=== PATIENT | female | born 1965 | race Caucasian/White ===

== ENCOUNTER 2017-03-10 09:27 | Inpatient (IN) ==
[2017-03-10] MEDS: SALINE FLUSH 10ml SYRINGE IVF PRN ×2 (09:57→11:41)
[2017-03-10] MEDS ORDERED: ALBUTEROL/IPRATROPIUM 2.5mg-0.5mg/3ml NEB AEROSOL ONE (10:51)
--- NOTE | 2017-03-10 11:13 | Emergency Department Report ---
General Adult HPI - General Chief complaint: Shortness of Breath/Dyspnea Stated complaint: soa Time Seen by Provider: 03/10/17 09:40 Source: patient, EMS Mode of arrival: EMS Limitations: no limitations - History of Present Illness HPI narrative: 51-year-old female presents to the emergency department with the chief complaint of cough and shortness of breath. Patient has a history of COPD and uses 5-6 L per nasal cannula on a chronic basis. She is still actively smoking 1 pack per day. Patient denies any pain or discomfort. Patient was noted to have a temperature of 101.5 F taken this morning by nursing staff. She was noted to be hypoxic at approximately 80% on her chronic home nasal cannula settings. Patient notes that she feels like her COPD is exacerbating. She does note feeling slightly improved after a nebulizer treatment was given in route to the hospital. She was given acetaminophen when the temperature was noted by nursing staff. No other complaints or associated symptoms. She has a cough that is productive of a yellow phlegm. She was at her care facility when her symptoms began. Symptoms have been persistent in nature since onset. - Related Data Home Medications Medication Instructions Recorded Confirmed Acetaminophen 650 mg PO Q6HR PRN 03/10/17 03/10/17 Albuterol Neb (0.083%) [Proventil 1 vial INH PRN PRN 03/10/17 03/10/17 Neb (0.083%)] Albuterol Sulfate [Proair Hfa] 2 puff INH TID PRN 03/10/17 03/10/17 Divalproex [Depakote] 2 tab PO AM 03/10/17 03/10/17 Divalproex [Depakote] 3 tab PO HS 03/10/17 03/10/17 Fluticasone Nasal [place] [Flonase] 2 spray JHON DAILY 03/10/17 03/10/17 Furosemide [Lasix] 40 mg PO DAILY 03/10/17 03/10/17 Gabapentin 900 mg PO HS 03/10/17 03/10/17 Gabapentin [Neurontin] 600 mg PO BID 03/10/17 03/10/17 Guaifenesin/Dextromethorphan 10 ml PO Q4HR PRN 03/10/17 03/10/17 [Robafen Dm Cgh-Chest Eric Syrp] Mag Hydrox/Aluminum Hyd/Simeth 15 ml PO Q6HR PRN 03/10/17 03/10/17 [Maalox Advanced Suspension] Meloxicam 15 mg PO DAILY 03/10/17 03/10/17 Milk of Magnesia [Mom] 30 ml PO DAILY PRN 03/10/17 03/10/17 Multivitamin [One Daily 1 each PO DAILY 03/10/17 03/10/17 Multivitamin] OLANZapine [Olanzapine] 10 mg PO HS 03/10/17 03/10/17 Omeprazole 20 mg PO ACB 03/10/17 03/10/17 Simvastatin 20 mg PO HS 03/10/17 03/10/17 Tramadol [Ultram] 50 mg PO TID PRN 03/10/17 03/10/17 Allergies Allergy/AdvReac Type Severity Reaction Status Date / Time No Known Allergies Allergy Verified 03/10/17 09:45 Review of Systems Constitutional: Reports: fever. Denies: chills Eyes: Denies: eye pain, vision change ENT: Denies: ear pain, throat pain Cardiovascular: Denies: chest pain, palpitations Respiratory: Reports: cough, dyspnea, wheezes. Denies: hemoptysis Gastrointestinal: Denies: abdominal pain, nausea, vomiting, diarrhea Genitourinary: Denies: urgency, dysuria Musculoskeletal: Denies: back pain, arthralgia Integumentary: Denies: erythema, rash Neurological: Denies: headache, numbness Psychiatric: Denies: anxiety, depression Endocrine: Denies: fatigue, heat or cold intolerance Hematological/Lymphatic: Denies: easy bleeding, easy bruising Allergic/Immunologic: Denies: facial swelling, urticaria PFSH Patient Stated Medical History Congestive Heart Failure labeled "edema" Other Cardiology Yes: Hyperlipidemia Bronchitis Yes Chronic Obstructive Pulmonary Yes Disease (COPD) Gastroesophageal Reflux Yes Disease Other Musculoskeletal Yes: bilateral Carpal Tunnel Other Infectious Yes: Hep C Bipolar Disorder Yes Other Behavioral Health Yes: homa with psycosis Family History: Reviewed and Noncontributory. - Social History Smoking status: Current every day smoker Substance use type: does not use Alcohol intake frequency: does not drink Physical Exam - Limitations Limitations: no limitations - General General appearance: alert, in no apparent distress - Normal Exams: Head:: Normocephalic without trauma Eyes:: Pupils are PERRLA w/ EOMI, No scleral icterus, irritation, or foreign bodies noted ENMT:: No facial trauma, nasal exudates, pharyngeal erythema, or exudates are noted Dental: No fractured, loose, or missing teeth noted Neck:: Full range of motion, without adenopathy, JVD, bruits or thyromegaly Chest/Respirations:: with good airflow, and symmetry bilaterally (wheezes and rhonchi bilaterally. ) Cardiovascular:: Regular rate and rhythm, without murmur or gallop, Pulses 2+ all extremities, capillary refill, <2 seconds all extremities Abdomen:: Bowel sounds positive, soft, non-tender, non-distended, no hepatosplenomegaly, masses or bruits noted Lymphatic:: No lymphadenopathy, or lymphedema noted Musculoskeletal:: No tenderness, or deformity noted, good range of motion, all extremities Integumentary:: No rashes, hives, or bruising noted, hair and nails, without abnormality Neurological:: Patient is alert, and oriented, cranial nerves, motor/sensory/ cerebellar, exams w/o gross deficits, to observation Psychiatric:: Patient exhibits, appropriate attention, emotion and affect Course Vital Signs Temperature 98.2 F 03/10/17 09:29 Pulse Rate 97 03/10/17 09:29 Respiratory Rate 24 03/10/17 09:29 Blood Pressure 130/59 03/10/17 09:29 Pulse Oximetry 93 03/10/17 09:29 Temperature 97.0 F 03/10/17 12:31 Pulse Rate 85 03/10/17 12:31 Respiratory Rate 18 03/10/17 12:31 Blood Pressure 145/71 H 03/10/17 12:31 Pulse Oximetry 92 03/10/17 12:31 Medical Decision Making - [facility] Narrative Medical decision making narrative: Labs / imaging were discussed in detail with the patient and family and questions are answered. Patient is given 500 mL normal saline intravenously times one. Patient is given DuoNeb treatment in the emergency department with improvement of symptoms. She is given segmental 125 mg IV times one. Patient is started on cefepime intravenously 1 g due to the potential bilateral lower lobe infiltrates. Patient is in agreement with the current plan of management. She is admitted to the service of the hospitalist Dr. Mathis in improved condition. Patient is in agreement with the current plan of management. No further orders. Sepsis was considered at 1130 am after CXR was reviewed and Cefepime was ordered. Patient did not have a lactic acid greater than 4 and was never hypotensive in the emergency department. - Differential Diagnosis COPD, PNA, CHF, Viral Syndrome - Lab Data Result diagrams: 03/10/17 09:59 03/10/17 09:59 Lab Results 03/10/17 03/10/17 03/10/17 Range/Units 09:59 09:59 09:59 WBC 5.7 (4.5-11.0) T/MM3 RBC 4.86 (4.00-5.20) M/MM3 Hgb 15.8 (12-16) GM/DL Hct 49.0 H (36-46) % MCV 100.8 H (80-100) UM3 MCH 32.5 (26-34) UUG MCHC 32.2 (31-37) GM/DL RDW Std Deviation 52.8 H (36.9-50.2) FL Plt Count 137 (130-400) T/MM3 MPV 9.8 (9.4-12.4) UM3 Immature Gran % (Auto) 0.2 (0.0-0.5) % Neut % (Auto) 63.3 (33-66) % Lymph % (Auto) 26.2 (23-45) % [place] % (Auto) 8.6 (0-9.0) % Eos % (Auto) 1.4 (0-4) % Baso % (Auto) 0.3 (0-2) % Neut # (Auto) 3.6 (1.8-7.7) T/MM3 Lymph # (Auto) 1.5 (1-4.8) T/MM3 [place] # (Auto) 0.5 (0-0.8) T/MM3 Eos # (Auto) 0.1 (0-0.5) T/MM3 Baso # (Auto) 0.0 (0-0.2) T/MM3 Abs Immat Gran (auto) 0.01 (0.00-0.03) T/MM3 Turbidity < 20 (0-20) Sodium 136 (134-144) MEQ/L Potassium 4.0 (3.6-5) MEQ/L Chloride 94 L (98-107) MEQ/L Carbon Dioxide 37 H (22-30) MEQ/L Anion Gap 5 (5-15) MEQ/L BUN 19.0 H (7-17) MG/DL Creatinine 0.7 (0.7-1.2) MG/DL GFR Calculation 88 BUN/Creatinine Ratio 27 H (6-26) RATIO Glucose 137 H (65-110) MG/DL Calculated Osmolality 266 (261-280) MOSM/KG Calcium 8.7 (8.4-10.2) MG/DL Total Bilirubin 0.30 (0.20-1.30) MG/DL Icterus Index < 2 (0-7) AST 19 (14-36) U/L ALT 32 (9-52) U/L Alkaline Phosphatase 57 (38-126) U/L Troponin I < 0.012 (0-0.12) ng/ml B-Natriuretic Peptide (0-175) pg/mL Total Protein 7.0 (6.3-8.2) G/DL Albumin 3.4 L (3.5-5.0) G/DL Globulin 3.6 (2.4-3.6) G/DL Albumin/Globulin Ratio 0.9 L (1.1-2.2) RATIO Plasma Lactate 2.2 (0.6-2.2) MMOL/L Procalcitonin < 0.05 NG/ML Specimen Hemolysis 20 (0-25) 03/10/17 Range/Units 09:59 WBC (4.5-11.0) T/MM3 RBC (4.00-5.20) M/MM3 Hgb (12-16) GM/DL Hct (36-46) % MCV (80-100) UM3 MCH (26-34) UUG MCHC (31-37) GM/DL RDW Std Deviation (36.9-50.2) FL Plt Count (130-400) T/MM3 MPV (9.4-12.4) UM3 Immature Gran % (Auto) (0.0-0.5) % Neut % (Auto) (33-66) % Lymph % (Auto) (23-45) % Charl[place] % (Auto) (0-9.0) % Eos % (Auto) (0-4) % Baso % (Auto) (0-2) % Neut # (Auto) (1.8-7.7) T/MM3 Lymph # (Auto) (1-4.8) T/MM3 [place] # (Auto) (0-0.8) T/MM3 Eos # (Auto) (0-0.5) T/MM3 Baso # (Auto) (0-0.2) T/MM3 Abs Immat Gran (auto) (0.00-0.03) T/MM3 Turbidity (0-20) Sodium (134-144) MEQ/L Potassium (3.6-5) MEQ/L Chloride (98-107) MEQ/L Carbon Dioxide (22-30) MEQ/L Anion Gap (5-15) MEQ/L BUN (7-17) MG/DL Creatinine (0.7-1.2) MG/DL GFR Calculation BUN/Creatinine Ratio (6-26) RATIO Glucose (65-110) MG/DL Calculated Osmolality (261-280) MOSM/KG Calcium (8.4-10.2) MG/DL Total Bilirubin (0.20-1.30) MG/DL Icterus Index (0-7) AST (14-36) U/L ALT (9-52) U/L Alkaline Phosphatase (38-126) U/L Troponin I (0-0.12) ng/ml B-Natriuretic Peptide 415 H (0-175) pg/mL Total Protein (6.3-8.2) G/DL Albumin (3.5-5.0) G/DL Globulin (2.4-3.6) G/DL Albumin/Globulin Ratio (1.1-2.2) RATIO Plasma Lactate (0.6-2.2) MMOL/L Procalcitonin NG/ML Specimen Hemolysis (0-25) - Radiology Data CXR - potential bilateral infiltrates. - EKG Data EKG #1 EKG results narrative: Sinus rhythm. 96 bpm. No STEMI. Disposition Clinical Impression: Pneumonia, Acute exacerbation of chronic obstructive airways disease Disposition: 02 To [facility] Condition: Stable Time of Disposition: 11:30 (Admit. Dr. Mathis. ) - Seen By: physician
[2017-03-10] MEDS ORDERED: CEFEPIME 1 GM in NS 100 ML IV ONE (11:31)
[2017-03-10] MEDS ORDERED: METHYLPREDNISOLONE SOD SUCC 125mg/2ml INJECTION IVP ONE (11:31)
[2017-03-10] MEDS ORDERED: NS 1,000 ML IV ONE (12:11)
[2017-03-10 12:39] VITALS: BMI 42.4
[2017-03-10] MEDS ORDERED: ALBUTEROL 2.5mg/3ml (0.083%) NEB AEROSOL PRN (15:00)
[2017-03-10] MEDS ORDERED: AZITHROMYCIN IV 500 MG in NS 250ml 250 ML IV SCH (15:00)
[2017-03-10] MEDS ORDERED: FUROSEMIDE 40 MG/4 ML INJECTION IVP SCH (15:00)
[2017-03-10] MEDS ORDERED: CEFTRIAXONE 1 G in NS 100 ML IV SCH (15:00)
[2017-03-10] MEDS ORDERED: GUAIFENESIN/DM 5ml ORAL LIQUID PO PRN (15:00)
[2017-03-10] MEDS ORDERED: MAG-AL + SIM ORAL LIQUID 30ml PO PRN (15:00)
--- NOTE | 2017-03-10 15:14 | History & Physical Report ---
<Dana Schaeffer - Last Filed: 03/10/17 15:11> History of Present Illness Date: 03/10/17 Chief complaint: SOA, fever HPI: Julia is a very pleasant 51yo female who resides in a nursing facility. She was found to have a fever of 101.5, was SOA, and was hypoxic in the 80's on her normal home O2. She continues to smoke at least 1ppd. Due to her increasing SOA and hypoxia, she was sent to the ER for further eval and treatment. She is seen following transfer from the emergency room. She is alert, reports breathing somewhat better. Continues to have some moderate SOA. Reports a productive cough. No chest pain. She is a very limited historian, and has known mental health disorder chronically. There were no [place] records available for me to review at the time of this H&P. Review of Systems ROS unobtainable: due to mental status Review of systems: Limited. - Constitutional Constitutional: Present: fever(s), weakness - Cardiovascular Cardiovascular: Present: edema. Absent: chest pain - Respiratory Respiratory: Present: cough, dyspnea, dyspnea on exertion, wheezing, chest congestion - Gastrointestinal Gastrointestinal: Absent: abdominal pain, nausea, vomiting - Musculoskeletal Musculoskeletal: Present: as per HPI - Psychiatric Psychiatric: Present: paranoia [facility] Medical History Acute exacerbation of chronic obstructive airways disease (Acute Medical) Possible CHF Chronic peripheral edema Bronchitis COPD GERD Hep C Bilateral Carpal Tunnel syndrome BPAD with paranoia Surgical History: Tubal Family History: Father- early CAD - Social History Smoking status: Current every day smoker Current occupational status: disabled Current residence: Group Home Medications Home Medications Medication Instructions Recorded Confirmed Type Acetaminophen 650 mg PO Q6HR PRN 03/10/17 03/10/17 History Albuterol Neb (0.083%) [Proventil 1 vial INH PRN PRN 03/10/17 03/10/17 History Neb (0.083%)] Albuterol Sulfate [Proair Hfa] 2 puff INH TID PRN 03/10/17 03/10/17 History Divalproex [Depakote] 2 tab PO AM 03/10/17 03/10/17 History Divalproex [Depakote] 3 tab PO HS 03/10/17 03/10/17 History Fluticasone Nasal [place] [Flonase] 2 spray JHON DAILY 03/10/17 03/10/17 History Furosemide [Lasix] 40 mg PO DAILY 03/10/17 03/10/17 History Gabapentin 900 mg PO HS 03/10/17 03/10/17 History Gabapentin [Neurontin] 600 mg PO BID 03/10/17 03/10/17 History Guaifenesin/Dextromethorphan 10 ml PO Q4HR PRN 03/10/17 03/10/17 History [Robafen Dm Cgh-Chest Eric Syrp] Mag Hydrox/Aluminum Hyd/Simeth 15 ml PO Q6HR PRN 03/10/17 03/10/17 History [Maalox Advanced Suspension] Meloxicam 15 mg PO DAILY 03/10/17 03/10/17 History Milk of Magnesia [Mom] 30 ml PO DAILY PRN 03/10/17 03/10/17 History Multivitamin [One Daily 1 each PO DAILY 03/10/17 03/10/17 History Multivitamin] OLANZapine [Olanzapine] 10 mg PO HS 03/10/17 03/10/17 History Omeprazole 20 mg PO ACB 03/10/17 03/10/17 History Simvastatin 20 mg PO HS 03/10/17 03/10/17 History Tramadol [Ultram] 50 mg PO TID PRN 03/10/17 03/10/17 History Allergies Allergy/AdvReac Type Severity Reaction Status Date / Time No Known Allergies Allergy Verified 03/10/17 09:45 Exam Vital Signs: Temperature 97.0 F 03/10/17 12:31 Pulse Rate 85 03/10/17 12:31 Respiratory Rate 18 03/10/17 12:31 Blood Pressure 145/71 H 03/10/17 12:31 Pulse Oximetry 92 03/10/17 12:31 Height/Weight/BMI: Height 1.63 m Weight 112.1 kg Body Mass Index 42.4 - Constitutional Present: mild distress, obese, disheveled, cooperative - Routine HEENT Exam Head: Present: normocephalic, atraumatic Eye: Present: EOMI, PERRL, periorbital swelling (Mild facial edema) ENT: Present: mucous membranes moist - Routine Neck Exam Present: supple, full ROM. Absent: tenderness - Routine Respiratory Exam Present: dyspnea, decreased breath sounds, rhonchi, wheezes, crackles ( Throughout. ) - Routine Cardiovascular Exam Present: RRR, S1, S2, no murmur - Routine Abdominal Exam Present: soft, normoactive bowel sounds, non distended, non tender - Routine Extremities Exam Present: edema (Significant pitting edema bilaterally LE), non tender - Routine Skin Exam Present: intact, dry, warm - Routine Neurological Exam Present: alert, moving all extremities - Routine Psychiatric Exam Present: cooperative, unable to assess (Withdrawn. Poor historian. ) Results - Labs CBC & Chem 7: 03/10/17 09:59 03/10/17 09:59 - ECG Data Tracing #1 I reviewed this ECG and interpreted as documented below: No STEMI. Regular rhythm - Imaging and Cardiology Chest x-ray Status: image reviewed by me, pending Additional comments: Possible bilateral basilar infiltrates. Pulmonary edema. Assessment and Plan (1) Acute exacerbation of chronic obstructive airways disease Current visit: Yes Status: Acute (2) Acute febrile illness Current visit: Yes Status: Acute Assessment and Plan: Impression: Acute on Chronic Respiratory Failure Hypoxemia Acute febrile illness COPD with exacerbation Fluid overload with suspected Heart Failure Mood Disorder with paranoia and disability. Tobacco user. Chronic pain Plan: 03/10/17 O2 per NC, Titrate to effect. Pt. was unable to clarify if she was on Bipap or CPAP at home. If so, will need to start. D/W RT. Scheduled Duoneb, Pulmicort. Schedule Solumedrol. Add Ceftriaxone/Azithro to cover possible infiltrate. Assess Resp Viral PCR. She has had Flu shot this year. Will start IV diuresis, as she seems quite fluid overloaded. Supplemental KCL while on Lasix. Assess echo on Sunday. Add tele, continuous O2. Resume home meds for Mood and Pain. Will add PRN Nicoderm patch and Ativan due to risk for anxiety given mental illness. Repeat labs in AM for stability. Monitor AM glucose via lab draws. If elevated,will need to start accu checks. Add LMWH for prophylaxis. DVT Prophylaxis: Lovenox GI Prophylaxis: other (PPI) Resuscitation Status: Full Code Hospital Course Summary Disclaimer: The visit summary below is not to be considered part of the above Progress Note. Hospital Course: 03/10/17 15:29 Impression: Acute on Chronic Respiratory Failure Hypoxemia Acute febrile illness COPD with exacerbation Fluid overload with suspected Heart Failure Mood Disorder with paranoia and disability. Tobacco user. Chronic pain Plan: 03/10/17 O2 per NC, Titrate to effect. Pt. was unable to clarify if she was on Bipap or CPAP at home. If so, will need to start. D/W RT. Scheduled Duoneb, Pulmicort. Schedule Solumedrol. Add Ceftriaxone/Azithro to cover possible infiltrate. Assess Resp Viral PCR. She has had Flu shot this year. Will start IV diuresis, as she seems quite fluid overloaded. Supplemental KCL while on Lasix. Assess echo on Sunday. Add tele, continuous O2. Resume home meds for Mood and Pain. Will add PRN Nicoderm patch and Ativan due to risk for anxiety given mental illness. Repeat labs in AM for stability. Monitor AM glucose via lab draws. If elevated,will need to start accu checks. Add LMWH for prophylaxis. <Gia Mathis - Last Filed: 03/10/17 16:41> History of Present Illness Date: 03/10/17 [facility] Medical History Acute exacerbation of chronic obstructive airways disease (Acute Medical) Acute febrile illness (Acute Medical) Exam Vital Signs: Temperature 97.0 F 03/10/17 12:31 Pulse Rate 87 03/10/17 16:00 Respiratory Rate 20 03/10/17 15:42 Blood Pressure 145/71 H 03/10/17 12:31 Pulse Oximetry 90 03/10/17 15:42 Height/Weight/BMI: Height 1.63 m Weight 112.1 kg Body Mass Index 42.4 Results - Labs CBC & Chem 7: 03/10/17 09:59 03/10/17 09:59 Assessment and Plan (1) Acute exacerbation of chronic obstructive airways disease Current visit: Yes Status: Acute (2) Acute febrile illness Current visit: Yes Status: Acute Assessment and Plan: Delfina FUNES Mr. Watkins was interviewed and examined by me. She continues to be short of air. She denies any pain anywhere. She has mild generalized edema that she reports has been there for the last 2 years since her last suicide attempt. She also reports that she has hepatitis C that has been untreated and she has been told that also contributes to her edema. She has a cough with yellow sputum production. She denies any previous cardiac history. She does take Lasix 40 mg daily and she is on the Statin. Her neck reveals no JVD. Her carotids are difficult to hear through her breath sounds. Her lungs are very course bilaterally. She has bilateral wheezes. Heart sounds are difficult to hear through for lab breath sounds but I do not hear murmur. Her heart is regular. Her abdomen is soft, nontender and nondistended. She has positive bowel sounds. She has mild generalized edema. She did tell me that she is supposed to be on oxygen 24 hours a day but oftentimes she only wears it at night. She has been up to the bathroom since being admitted and tolerating that from the respiratory status. Her labs are fairly unremarkable. Her chest x-ray does look like there is possible bilateral infiltrate. We will treat her for healthcare acquired pneumonia. We will provide aggressive respiratory therapy. We will initiate steroids. We will try to get a sputum culture. Her BNP is only mildly elevated. I have reviewed her labs, imaging and other notes. I agree with STATISTICS TEACHER assessment and plan. Hospital Course Summary Disclaimer: The visit summary below is not to be considered part of the above Progress Note.
[2017-03-10] MEDS ORDERED: NICOTINE PATCH REMOVAL TD PRN (15:24)
[2017-03-10] MEDS ORDERED: NICOTINE 21 MG PATCH TD PRN (15:24)
[2017-03-10] MEDS: ALBUTEROL/IPRATROPIUM 2.5mg-0.5mg/3ml NEB AEROSOL SCH ×2 (15:29→19:23)
[2017-03-10] MEDS: DIVALPROEX 250 MG TABLET PO SCH ×2 (16:06→21:05)
[2017-03-10] MEDS: ENOXAPARIN 40 MG/0.4 ML INJECTION SQ SCH (16:06)
[2017-03-10] MEDS ORDERED: VANCOMYCIN - PHARMACY CONSULT MC ONE (16:48)
[2017-03-10] MEDS: CEFEPIME 1 GM in NS 100 ML IV SCH ×2 (18:21→22:48)
[2017-03-10] MEDS: CIPROFLOXACIN PB 400 MG/200 ML BAG IV SCH (18:53)
[2017-03-10] MEDS ORDERED: BUDESONIDE INH.SOLN 0.5mg/2ml NEB IPPB SCH (19:00)
[2017-03-10] MEDS: BUDESONIDE INH.SOLN 0.5mg/2ml NEB AEROSOL SCH (19:23)
[2017-03-10] MEDS: METHYLPREDNISOLONE SOD SUCC 125mg/2ml INJECTION IVP SCH (21:03)
[2017-03-10] MEDS: OLANZapine 10 MG TABLET PO SCH (21:04)
[2017-03-10] MEDS: FUROSEMIDE 40 MG/4 ML INJECTION IVP SCH (21:05)
[2017-03-10] MEDS: SIMVASTATIN 20 MG TABLET PO SCH (21:05)
[2017-03-10] MEDS: GABAPENTIN 300 MG CAPSULE PO SCH (21:21)
[2017-03-10] MEDS: TRAMADOL 50 MG TABLET PO PRN (21:21)
[2017-03-11] MEDS: METHYLPREDNISOLONE SOD SUCC 125mg/2ml INJECTION IVP SCH ×3 (01:31→17:38)
[2017-03-11] MEDS: CEFEPIME 1 GM in NS 100 ML IV SCH ×4 (03:53→22:19)
[2017-03-11] MEDS: CIPROFLOXACIN PB 400 MG/200 ML BAG IV SCH ×2 (04:58→16:23)
[2017-03-11] MEDS: OMEPRAZOLE 20 MG CAPSULE PO SCH (06:14)
[2017-03-11] MEDS: ALBUTEROL/IPRATROPIUM 2.5mg-0.5mg/3ml NEB AEROSOL SCH ×4 (07:03→19:32)
[2017-03-11] MEDS: BUDESONIDE INH.SOLN 0.5mg/2ml NEB AEROSOL SCH ×2 (07:03→19:32)
--- NOTE | 2017-03-11 07:12 | Pharmacy Consult-Antibiotics ---
Pharmacy Consult-Vancomycin - Laboratory Information WBC 6.3 T/MM3 (4.5-11.0) 03/11/17 04:23 BUN 25.0 MG/DL (7-17) H 03/11/17 04:22 Creatinine 0.6 MG/DL (0.7-1.2) L 03/11/17 04:22 Procalcitonin < 0.05 NG/ML 03/10/17 09:59 MS admitted via ED from [place] facility with acute excab. COPD, Febrile illness. CXR shows bilateral LL infiltrates. Lactate = 2.2 Starting Abx = Cefepime + Cipro + Vancomycin 03/10 2000 Gave Vancomycin 2gm LD, then started Vancomycin 1500mg IV q12hr at 0600. After pharmacokinetic review adjusting regimen to VANCOMYCIN 2 GM IV q8hrs. This gives peak/trough = 41/17 mcg/ml Trough target range = 15-20 mcg/ml Will check trough with 11/6 am dose: should be at steady state levels by then. Thank you
[2017-03-11] MEDS: GABAPENTIN 600 MG TABLET PO SCH ×2 (08:31→12:20)
[2017-03-11] MEDS: DIVALPROEX 250 MG TABLET PO SCH ×2 (08:32→20:28)
[2017-03-11] MEDS: ENOXAPARIN 40 MG/0.4 ML INJECTION SQ SCH (08:33)
[2017-03-11] MEDS: FLUTICASONE NASAL SPRAY 50mcg EA NOSTRIL SCH (08:33)
[2017-03-11] MEDS: FUROSEMIDE 40 MG/4 ML INJECTION IVP SCH ×2 (08:37→20:32)
--- NOTE | 2017-03-11 09:35 | XRay Report ---
INDICATION: Cough PROCEDURE: CHEST 2-VIEWS UPRIGHT (PA & LAT) Encounter: Initial COMPARISON: None FINDINGS: Right middle and possibly bilateral lower lobe areas of airspace consolidation. Upper lung drew are clear. No pneumothorax or pleural effusion. Cardiac silhouette is mildly enlarged. Mediastinal contours and pulmonary vascularity are within normal limits. Impression: Right middle lobe pneumonia with possible peribronchial spread of infection into the lower lobes. .
--- NOTE | 2017-03-11 11:38 | Progress Note ---
- Date 03/11/17 Subjective: Ms. Watkins is a very pleasant 51yo female who resides in a nursing facility. She was found to have a fever of 101.5, was SOA, and was hypoxic in the 80's on her normal home O2 (5-6 liters). She continues to smoke at least 1ppd. Due to her increasing SOA and hypoxia, she was sent to the ER for further eval and treatment. Pt reports having Hep C, not treated. She has chronic LE edema since her last suicide attempt 2 years ago. Today. She continues to be SOA and required 10 liters this am for sats >90%. She has a cough with yellow sputum production but apparently we have been unable to get a sample (?). Her CXR does show a RML pna that does extend into the lower lobe. She is on antibiotics to cover HAP. She continues to wheeze. She denies CP, palp. No N/V/D/C No hematochezia, melena. Objective Vital signs: Temperature 96.6 F L 03/11/17 07:38 Pulse Rate 75 03/11/17 08:00 Respiratory Rate 24 03/11/17 10:52 Blood Pressure 109/59 03/11/17 07:38 Pulse Oximetry 95 03/11/17 10:52 Height/Weight/BMI: Height 1.63 m Weight 113.3 kg Body Mass Index 42.4 Comments: Gen: alert and oriented. NAD Skin: warm and dry HEENT: NC/AT PERRL, EOMI, Sclera, lids and conjunctiva wnl. MMM. OP clear. Neck: No JVD, Carotids 2+ without bruits Lungs: Coarse, rhonchi, wheezes bilaterally. CV: regular. No murmur, rub or gallop Abd: soft. +BS. NT/ND MS: Trace edema. Good strength and ROM Neuro: No focal deficits Results - Labs CBC & Chem 7: 03/11/17 04:23 03/11/17 04:22 Labs: Laboratory Results - last 48 hr 03/10/17 03/10/17 03/10/17 09:59 09:59 09:59 WBC 5.7 RBC 4.86 Hgb 15.8 Hct 49.0 H MCV 100.8 H MCH 32.5 MCHC 32.2 RDW Std Deviation 52.8 H Plt Count 137 MPV 9.8 Immature Gran % (Auto) 0.2 Neut % (Auto) 63.3 Lymph % (Auto) 26.2 [place] % (Auto) 8.6 Eos % (Auto) 1.4 Baso % (Auto) 0.3 Neut # (Auto) 3.6 Lymph # (Auto) 1.5 [place] # (Auto) 0.5 Eos # (Auto) 0.1 Baso # (Auto) 0.0 Abs Immat Gran (auto) 0.01 Neutrophils % (Manual) Band Neutrophils % Lymphocytes % (Manual) Monocytes % (Manual) Neutrophils # (Manual) Band Neutrophils # Lymphocytes # (Manual) Monocytes # (Manual) RBC Morph Comment Turbidity < 20 Sodium 136 Potassium 4.0 Chloride 94 L Carbon Dioxide 37 H Anion Gap 5 BUN 19.0 H Creatinine 0.7 GFR Calculation 88 BUN/Creatinine Ratio 27 H Glucose 137 H Calculated Osmolality 266 Calcium 8.7 Phosphorus Magnesium Total Bilirubin 0.30 Icterus Index < 2 AST 19 ALT 32 Alkaline Phosphatase 57 Troponin I < 0.012 B-Natriuretic Peptide Total Protein 7.0 Albumin 3.4 L Globulin 3.6 Albumin/Globulin Ratio 0.9 L Plasma Lactate 2.2 Procalcitonin < 0.05 Specimen Hemolysis 20 Adenovirus (PCR) B.parapertussis DNA PCR C. pneumoniae DNA (PCR) Coronavirus OC43 (PCR) Coronavirus HKU1 (PCR) Coronavirus 229E (PCR) Coronavirus NL63 (PCR) Human Metapneumovir PCR Influenza Type A (PCR) Influenza Type B (PCR) M. pneumoniae (PCR) Parainfluenza 1 (PCR) Parainfluenza 2 (PCR) Parainfluenza 3 (PCR) Parainfluenza 4 (PCR) RSV (PCR) Entero/Rhino (PCR) 03/10/17 03/10/17 03/10/17 09:59 14:00 16:01 WBC RBC Hgb Hct MCV MCH MCHC RDW Std Deviation Plt Count MPV Immature Gran % (Auto) Neut % (Auto) Lymph % (Auto) [place] % (Auto) Eos % (Auto) Baso % (Auto) Neut # (Auto) Lymph # (Auto) [place] # (Auto) Eos # (Auto) Baso # (Auto) Abs Immat Gran (auto) Neutrophils % (Manual) Band Neutrophils % Lymphocytes % (Manual) Monocytes % (Manual) Neutrophils # (Manual) Band Neutrophils # Lymphocytes # (Manual) Monocytes # (Manual) RBC Morph Comment Turbidity Sodium Potassium Chloride Carbon Dioxide Anion Gap BUN Creatinine GFR Calculation BUN/Creatinine Ratio Glucose Calculated Osmolality Calcium Phosphorus Magnesium Total Bilirubin Icterus Index AST ALT Alkaline Phosphatase Troponin I B-Natriuretic Peptide 415 H Total Protein Albumin Globulin Albumin/Globulin Ratio Plasma Lactate 0.8 Procalcitonin Specimen Hemolysis Adenovirus (PCR) Negative B.parapertussis DNA PCR Negative C. pneumoniae DNA (PCR) Negative Coronavirus OC43 (PCR) Negative Coronavirus HKU1 (PCR) Negative Coronavirus 229E (PCR) Negative Coronavirus NL63 (PCR) Negative Human Metapneumovir PCR Negative Influenza Type A (PCR) Negative Influenza Type B (PCR) Negative M. pneumoniae (PCR) Negative Parainfluenza 1 (PCR) Negative Parainfluenza 2 (PCR) Negative Parainfluenza 3 (PCR) Negative Parainfluenza 4 (PCR) Negative RSV (PCR) Negative Entero/Rhino (PCR) Negative 03/11/17 03/11/17 04:22 04:23 WBC 6.3 RBC 4.81 Hgb 15.2 Hct 48.2 H MCV 100.2 H MCH 31.6 MCHC 31.5 RDW Std Deviation 51.2 H Plt Count 148 MPV 10.6 Immature Gran % (Auto) Not performed Neut % (Auto) Not performed Lymph % (Auto) Not performed [place] % (Auto) Not performed Eos % (Auto) Not performed Baso % (Auto) Not performed Neut # (Auto) Not performed Lymph # (Auto) Not performed [place] # (Auto) Not performed Eos # (Auto) Not performed Baso # (Auto) Not performed Abs Immat Gran (auto) Not performed Neutrophils % (Manual) 90.0 H Band Neutrophils % 4.0 Lymphocytes % (Manual) 5.0 L Monocytes % (Manual) 1.0 Neutrophils # (Manual) 5.7 Band Neutrophils # 0.3 Lymphocytes # (Manual) 0.3 L Monocytes # (Manual) 0.1 RBC Morph Comment Normal Turbidity < 20 Sodium 139 Potassium 3.9 Chloride 100 D Carbon Dioxide 34 H Anion Gap 5 BUN 25.0 H Creatinine 0.6 L GFR Calculation 105 BUN/Creatinine Ratio 42 H Glucose 177 H Calculated Osmolality 276 Calcium 8.2 L Phosphorus 2.0 L Magnesium 2.3 Total Bilirubin Icterus Index < 2 AST ALT Alkaline Phosphatase Troponin I B-Natriuretic Peptide Total Protein Albumin 3.2 L Globulin Albumin/Globulin Ratio Plasma Lactate Procalcitonin Specimen Hemolysis < 15 Adenovirus (PCR) B.parapertussis DNA PCR C. pneumoniae DNA (PCR) Coronavirus OC43 (PCR) Coronavirus HKU1 (PCR) Coronavirus 229E (PCR) Coronavirus NL63 (PCR) Human Metapneumovir PCR Influenza Type A (PCR) Influenza Type B (PCR) M. pneumoniae (PCR) Parainfluenza 1 (PCR) Parainfluenza 2 (PCR) Parainfluenza 3 (PCR) Parainfluenza 4 (PCR) RSV (PCR) Entero/Rhino (PCR) Assessment and Plan (1) Acute exacerbation of chronic obstructive airways disease Current visit: Yes Status: Acute (2) Acute febrile illness Current visit: Yes Status: Acute Assessment and Plan: Impression: 1. Acute on Chronic Respiratory Failure -Hypoxemia -RML PNA -Treating for HAP, no sputum cx yet. -Scheduled Dusagar Pultankort. Schedule Solumedrol. -Bl cx neg to date -Check Echo Sunday for EF and PAP 2. Acute febrile illness -PNA 3. COPD with exacerbation -Continue antibiotics, resp therapy, steroids 4. Mood Disorder with paranoia and disability. -Scheduled Jade Pultankort. Schedule Solumedrol. 5. Tobacco user. -Nicotine patch 6. Elevated glucose -Start SSI and accuchecks 7. Chronic pain 8. Prophylaxis -Lovenox and PPI Hospital Course Summary Disclaimer: The visit summary below is not to be considered part of the above Progress Note. Hospital Course: 03/10/17 15:29 Impression: Acute on Chronic Respiratory Failure Hypoxemia Acute febrile illness COPD with exacerbation Fluid overload with suspected Heart Failure Mood Disorder with paranoia and disability. Tobacco user. Chronic pain Plan: 03/10/17 O2 per NC, Titrate to effect. Pt. was unable to clarify if she was on Bipap or CPAP at home. If so, will need to start. D/W RT. Scheduled Jade Pultankort. Schedule Solumedrol. Add Ceftriaxone/Azithro to cover possible infiltrate. Assess Resp Viral PCR. She has had Flu shot this year. Will start IV diuresis, as she seems quite fluid overloaded. Supplemental KCL while on Lasix. Assess echo on Sunday. Add tele, continuous O2. Resume home meds for Mood and Pain. Will add PRN Nicoderm patch and Ativan due to risk for anxiety given mental illness. Repeat labs in AM for stability. Monitor AM glucose via lab draws. If elevated,will need to start accu checks. Add LMWH for prophylaxis.
[2017-03-11] MEDS ORDERED: DEXTROSE 50% SYRINGE 50ml (1 AMP) IVP PRN (11:50)
[2017-03-11] MEDS ORDERED: GLUCOSE ORAL GEL 40% 37.5gm PO PRN (11:50)
[2017-03-11] MEDS: INSULIN ASPART 100unit/ml INJECTION SQ PRN ×2 (15:13→21:10)
[2017-03-11] MEDS: SALINE FLUSH 10ml SYRINGE IVF PRN (20:22)
[2017-03-11] MEDS: SIMVASTATIN 20 MG TABLET PO SCH (20:28)
[2017-03-11] MEDS: OLANZapine 10 MG TABLET PO SCH (20:28)
[2017-03-11] MEDS: GABAPENTIN 300 MG CAPSULE PO SCH (20:28)
[2017-03-11] MEDS: TRAMADOL 50 MG TABLET PO PRN (21:11)
[2017-03-12] MEDS: METHYLPREDNISOLONE SOD SUCC 125mg/2ml INJECTION IVP SCH ×3 (01:10→16:34)
[2017-03-12] MEDS: CEFEPIME 1 GM in NS 100 ML IV SCH ×4 (03:26→20:09)
[2017-03-12] MEDS: OMEPRAZOLE 20 MG CAPSULE PO SCH (06:54)
[2017-03-12] MEDS: BUDESONIDE INH.SOLN 0.5mg/2ml NEB AEROSOL SCH ×2 (07:06→18:43)
[2017-03-12] MEDS: ALBUTEROL/IPRATROPIUM 2.5mg-0.5mg/3ml NEB AEROSOL SCH ×3 (07:06→18:43)
[2017-03-12] MEDS: CIPROFLOXACIN PB 400 MG/200 ML BAG IV SCH ×2 (07:42→16:34)
[2017-03-12] MEDS: GABAPENTIN 600 MG TABLET PO SCH ×2 (09:18→12:21)
[2017-03-12] MEDS: DIVALPROEX 250 MG TABLET PO SCH ×2 (09:19→20:14)
[2017-03-12] MEDS: FUROSEMIDE 40 MG/4 ML INJECTION IVP SCH ×3 (09:20→20:16)
[2017-03-12] MEDS: ENOXAPARIN 40 MG/0.4 ML INJECTION SQ SCH (09:21)
[2017-03-12] MEDS: FLUTICASONE NASAL SPRAY 50mcg EA NOSTRIL SCH (09:21)
[2017-03-12] MEDS: TRAMADOL 50 MG TABLET PO PRN ×2 (10:04→20:21)
--- NOTE | 2017-03-12 10:48 | Pulmonology Consult Note ---
<Megan,Erica D - Last Filed: 03/12/17 10:48> History of Present Illness Consult date: 03/12/17 Reason for consult: COPD, hypoxemia, pneumonia Chief complaint: SOB, wheezing History of present illness: This is a 52 yo female who resides at a group home with a recent Dx of Hep C, and Hx smoking with a 78 pyh and currently smoking 1 ppd. She states she typically has cough and sputum throughout the day along with wheezing and uses albuterol HFA TID. She has noticed increased wheezing recently but no change in sputum. She was noted to have a temp 101.5 with increasing SOB and increased hypoxia requiring O2 at 10L per NC at the group home and was sent to the ER for further treatment. CXR does show RML infiltrate and she was placed on vanco and cefepime for HCAP and transferred to floor. She is currently on O2 at 8L per NC, states she uses O2 at 5L O2 per NC at [facility], noted to be a poor historian secondary to her psych history. Currently on pulmicort BID, A/A QID with solumedrol 60mg q8. She does note fatigue and daytime sleepiness and requiring naps during the day. No ABG noted but CO2 on admit was 37 now 33, WBC was normal , currently 12 and afebrile. We have been consulted for her respiratory issues and appreciate the consult. Review of Systems All systems: reviewed and no additional remarkable complaints except as stated - Constitutional Constitutional: Present: daytime sleepiness, fatigue, fever(s) - Cardiovascular Cardiovascular: Present: dyspnea on exertion, edema - Respiratory Respiratory: Present: cough, dyspnea, wheezing [facility] Medical History Acute exacerbation of chronic obstructive airways disease (Acute Medical) Acute febrile illness (Acute Medical) Surgical History: Tubal - Social History Smoking status: Current every day smoker Packs per day: 1 Time spent discussing smoking cessation with patient: 3 to 10 minutes Alcohol intake frequency: does not drink Housing: group home Current occupational status: disabled Current residence: [facility] Medications Home Medications Medication Instructions Recorded Confirmed Type Acetaminophen 650 mg PO Q6HR PRN 03/10/17 03/10/17 History Albuterol Neb (0.083%) [Proventil 1 vial INH PRN PRN 03/10/17 03/10/17 History Neb (0.083%)] Albuterol Sulfate [Proair Hfa] 2 puff INH TID PRN 03/10/17 03/10/17 History Divalproex [Depakote] 2 tab PO AM 03/10/17 03/10/17 History Divalproex [Depakote] 3 tab PO HS 03/10/17 03/10/17 History Fluticasone Nasal Midnight [Flonase] 2 spray JHON DAILY 03/10/17 03/10/17 History Furosemide [Lasix] 40 mg PO DAILY 03/10/17 03/10/17 History Gabapentin 900 mg PO HS 03/10/17 03/10/17 History Gabapentin [Neurontin] 600 mg PO BID 03/10/17 03/10/17 History Guaifenesin/Dextromethorphan 10 ml PO Q4HR PRN 03/10/17 03/10/17 History [Robafen Dm Cgh-Chest Eric Syrp] Mag Hydrox/Aluminum Hyd/Simeth 15 ml PO Q6HR PRN 03/10/17 03/10/17 History [Maalox Advanced Suspension] Meloxicam 15 mg PO DAILY 03/10/17 03/10/17 History Milk of Magnesia [Mom] 30 ml PO DAILY PRN 03/10/17 03/10/17 History Multivitamin [One Daily 1 each PO DAILY 03/10/17 03/10/17 History Multivitamin] OLANZapine [Olanzapine] 10 mg PO HS 03/10/17 03/10/17 History Omeprazole 20 mg PO ACB 03/10/17 03/10/17 History Simvastatin 20 mg PO HS 03/10/17 03/10/17 History Tramadol [Ultram] 50 mg PO TID PRN 03/10/17 03/10/17 History Allergies Allergy/AdvReac Type Severity Reaction Status Date / Time No Known Allergies Allergy Verified 03/10/17 09:45 Exam Vital signs: Temperature 97.6 F 03/12/17 07:38 Pulse Rate 83 03/12/17 07:38 Respiratory Rate 16 03/12/17 07:38 Blood Pressure 133/70 03/12/17 07:38 Pulse Oximetry 90 03/12/17 07:38 - Constitutional no acute distress, obese - Routine HEENT Exam Head: Present: normocephalic, atraumatic Eye: Present: EOMI, PERRL - Routine Neck Exam Present: supple, full ROM - Routine Respiratory Exam Present: decreased breath sounds, wheezes - Routine Cardiovascular Exam Present: RRR, no murmur - Routine Abdominal Exam Present: soft, normoactive bowel sounds - Routine Extremities Exam Present: edema, full ROM - Routine Back/Spine/Pelvis Exam Back/Spine: Present: full ROM - Routine Skin Exam Present: intact, dry - Routine Neurological Exam Present: alert, oriented X3, CN II-XII intact - Routine Psychiatric Exam Present: normal affect, normal thought process Results - Laboratory Findings CBC and BMP: 03/12/17 03:41 03/12/17 03:41 Abnormal lab findings: Abnormal Labs 03/11/17 03/11/17 03/12/17 04:22 04:23 03:41 WBC Hct 48.2 H MCV 100.2 H RDW Std Deviation 51.2 H Neutrophils % (Manual) 90.0 H Lymphocytes % (Manual) 5.0 L Neutrophils # (Manual) Lymphocytes # (Manual) 0.3 L Carbon Dioxide 34 H BUN 25.0 H Creatinine 0.6 L BUN/Creatinine Ratio 42 H Glucose 177 H Hemoglobin A1c 5.9 L Calculated Osmolality Calcium 8.2 L Phosphorus 2.0 L B-Natriuretic Peptide 988 H Albumin 3.2 L 03/12/17 03/12/17 03:41 03:41 WBC 12.0 H D Hct 47.7 H MCV 103.5 H RDW Std Deviation 54.6 H Neutrophils % (Manual) 88.0 H Lymphocytes % (Manual) 6.0 L Neutrophils # (Manual) 10.6 H Lymphocytes # (Manual) 0.7 L Carbon Dioxide 33 H BUN 30.0 H Creatinine BUN/Creatinine Ratio 43 H Glucose 155 H Hemoglobin A1c Calculated Osmolality 286 H Calcium Phosphorus B-Natriuretic Peptide Albumin - Diagnostic Findings Chest x-ray: image reviewed (as noted in HPI) <Cristhian White - Last Filed: 03/13/17 17:05> [facility] Medical History Acute exacerbation of chronic obstructive airways disease (Acute Medical) Acute febrile illness (Acute Medical) Exam Vital signs: Temperature 97.3 F 03/13/17 16:03 Pulse Rate 75 03/13/17 16:03 Respiratory Rate 24 03/13/17 16:03 Blood Pressure 143/72 H 03/13/17 16:03 Pulse Oximetry 93 03/13/17 16:03 Results - Laboratory Findings CBC and BMP: 03/13/17 04:13 03/13/17 04:13 ABG ABG pH 7.400 (7.350-7.450) 03/12/17 12:10 ABG pCO2 61 MMHG (34-45) H* 03/12/17 12:10 ABG pO2 65 MMHG (80-100) L 03/12/17 12:10 ABG O2 Saturation 92.0 % (95.0-98.0) L 03/12/17 12:10 Abnormal lab findings: Abnormal Labs 03/13/17 03/13/17 04:13 04:13 Hct 49.1 H MCV 102.1 H MCHC 30.8 L RDW Std Deviation 54.5 H Neutrophils % (Manual) 85.0 H Lymphocytes % (Manual) 13.0 L Neutrophils # (Manual) 9.3 H Carbon Dioxide 37 H Anion Gap 4 L BUN 29.0 H BUN/Creatinine Ratio 41 H Glucose 134 H Calculated Osmolality 281 H Assessment and Plan - Time Spent With Patient Total time spent is greater than 50% in coordination of care (as documented) at patient's floor/unit and/or counseling patient: less than 15 minutes - Attestation Attestation Narrative: I have personally seen and examined this patient. These reports transcribed by the ARPN represent my findings and recommendations. Acute Hypoxic Respiratory Failure - [place] 5L [place] [facility] ? if just at night HCAP COPD exacerbation - likely mod severe to sever COPD HUBERT vs Hypercapnic failure Tobaccoism The patient is doing well on the current treatment plan. We will follow
[2017-03-12] MEDS: INSULIN ASPART 100unit/ml INJECTION SQ PRN ×3 (12:20→22:11)
--- NOTE | 2017-03-12 13:21 | Pharmacy Consult-Antibiotics ---
Pharmacy Consult-Vancomycin - Laboratory Information WBC 12.0 T/MM3 (4.5-11.0) H 03/12/17 10:44 BUN 30.0 MG/DL (7-17) H 03/12/17 03:41 Creatinine 0.7 MG/DL (0.7-1.2) 03/12/17 03:41 Procalcitonin < 0.05 NG/ML 03/10/17 09:59 Vancomycin Trough 19.40 UG/ML (15-20) 03/12/17 03:41 - Consult Information VANCOMYCIN CONSULT: Vancomycin Trough = 19.04 mcg/ml. Today's SCr = 0.7 mg/dl. The dose of vancomycin previous to trough was given about 1 hour early so actual trough is higher than the resulted trough. Our pharmacokinetic program suggest we change dose to 1.5gm ivpb q8h. Will give Vancomycin 1,500 mg IV q8hrs. Will continue to monitor and make adjustments accordingly. Thank you.
[2017-03-12] MEDS ORDERED: PNEUMOCOCCAL 13 VACCINE 0.5ml INJECTION IM ONE (14:30)
[2017-03-12] MEDS ORDERED: PNEUMOCOCCAL VAC ADMIN CHARGE INJ ONE (16:00)
--- NOTE | 2017-03-12 16:05 | Progress Note ---
<Sera Shea - Last Filed: 03/12/17 16:01> - Date 03/12/17 Subjective: Patient is seen today sitting up in bed. She has no complaints. She does have questions about treatment for her hepatitis C. She feels her cough and breathing is improving. No chest pain or abdominal pain. Reports her appetite is fine and her bowels are moving. Objective Vital signs: Temperature 97.4 F 03/12/17 15:30 Pulse Rate 76 03/12/17 15:30 Respiratory Rate 16 03/12/17 15:30 Blood Pressure 131/81 03/12/17 15:30 Pulse Oximetry 92 03/12/17 15:30 - Constitutional Present: no acute distress, well nourished, well developed - Routine Respiratory Exam Present: decreased breath sounds, wheezes - Routine Cardiovascular Exam Present: RRR. Absent: murmur - Routine Abdominal Exam Present: soft, normoactive bowel sounds, non distended. Absent: tenderness - Routine Extremities Exam Present: edema (diffuse), normal capillary refill - Routine Skin Exam Present: dry, warm - Routine Neurological Exam Present: alert, oriented X3 - Routine Lymphatic Exam Lymphatic: Absent: adenopathy - Routine Psychiatric Exam Present: normal affect, cooperative Results - Labs CBC & Chem 7: 03/12/17 10:44 03/12/17 03:41 Assessment and Plan (1) Acute exacerbation of chronic obstructive airways disease Current visit: Yes Status: Acute (2) Acute febrile illness Current visit: Yes Status: Acute Assessment and Plan: Impression: Acute Hypoxic Respiratory Failure - Uses 5L O2 at [facility] home Leukocytosis - likely steroid effect HCAP COPD exacerbation - likely mod severe to severe COPD ? HUBERT vs Hypercapnic failure Tobaccoism Generalized edema - awaiting 2D echo BPAD with paranoia GERD Hep C Plan: Continue antibiotics, steroids and breathing treatments. Appreciate pulm's input. GI consult re: Hep C on OP basis. Hospital Course Summary Disclaimer: The visit summary below is not to be considered part of the above Progress Note. Hospital Course: 03/10/17 15:29 Impression: Acute on Chronic Respiratory Failure Hypoxemia Acute febrile illness COPD with exacerbation Fluid overload with suspected Heart Failure Mood Disorder with paranoia and disability. Tobacco user. Chronic pain Plan: 03/10/17 O2 per NC, Titrate to effect. Scheduled Duoneb, Pulmicort. Schedule Solumedrol. Add Ceftriaxone/Azithro to cover possible infiltrate. Assess Resp Viral PCR. She has had Flu shot this year. Will start IV diuresis, as she seems quite fluid overloaded. Supplemental KCL while on Lasix. Assess echo on Sunday. Add tele, continuous O2. Resume home meds for Mood and Pain. Will add PRN Nicoderm patch and Ativan due to risk for anxiety given mental illness. Repeat labs in AM for stability. Monitor AM glucose via lab draws. If elevated,will need to start accu checks. Add LMWH for prophylaxis. 03/11/17 -Check Echo Sunday for EF and PAP -Continue antibiotics, resp therapy, steroids 03/12/17 Continue antibiotics, steroids and breathing treatments. Appreciate pulm's input. GI consult re: Hep C on OP basis. <Gita Espinoza - Last Filed: 03/12/17 18:02> - Date 03/12/17 Objective Vital signs: Temperature 97.4 F 03/12/17 15:30 Pulse Rate 75 03/12/17 16:00 Respiratory Rate 16 03/12/17 15:30 Blood Pressure 131/81 03/12/17 15:30 Pulse Oximetry 92 03/12/17 15:30 Results - Labs CBC & Chem 7: 03/12/17 10:44 03/12/17 03:41 Assessment and Plan (1) Acute exacerbation of chronic obstructive airways disease Current visit: Yes Status: Acute (2) Acute febrile illness Current visit: Yes Status: Acute Assessment and Plan: 03/12/2017-I reviewed this chart, the patient history, and the LEAD TRAINER's/PA's documented findings as above. We discussed and formulated the assessment and plan as above with the additions below.-Dr. Espinoza The patient was seen early this evening. She states her breathing feels back to normal. She has minimal cough. She denies any chest pain or abdominal pain. She has some chronic hip and low back pain which she's had for years. She is eating and drinking well. She thinks her edema is about the same. Her nurse notified me that she is refused the evening dose of Lasix. She is willing to take that at this time but does not want to take it later in the night. The patient is not aware of any history of MRSA. She states she feels like she' s been swollen from her face down to her toes for the past 2 years. On exam she is alert and in no acute distress. She is pleasant and does not appear anxious. Chest reveals expiratory wheezing bilaterally. No rhonchi. Cardiovascular reveals a regular rate and rhythm. Abdomen is soft and nontender. Extremities refill +2 pedal edema and +1 pretibial edema bilaterally. She has some nonpitting edema in her arms and hands as well. Lab reviewed does show A1c of 5.9. Hemoglobin is stable at 12 with only 2 bands. Potassium today is 5.0. ABG shows pH of 7.4, PCO2 61, PO2 of 65 on 7 L per nasal cannula. Impression Acute on chronic hypoxic respiratory failure. Currently on her usual 5 L of oxygen Healthcare associated pneumonia -improving She appears to have chronic CO2 retention of undetermined etiology Probable COPD Hyperkalemia-borderline Hyperglycemia-A1c of 5.9 Chronic edema-echocardiogram is pending Plan We'll check an MRSA nasal swab. Will discontinue Vanco. Repeat chest x-ray tomorrow. Change Cipro to oral. Change to oral steroids. Dr. White was consulted today, she may need further evaluation regarding CO2 retention. I discussed the importance of smoking cessation with the patient. She stated that we'll be very hard. Discontinue potassium regarding hyperkalemia. Recheck metabolic profile tomorrow. Overall, the patient appears to be improving. Increase activity as tolerated. Consult PT and OT. Hospital Course Summary Disclaimer: The visit summary below is not to be considered part of the above Progress Note.
[2017-03-12] MEDS: SIMVASTATIN 20 MG TABLET PO SCH (20:13)
[2017-03-12] MEDS: OLANZapine 10 MG TABLET PO SCH (20:14)
[2017-03-12] MEDS: GABAPENTIN 300 MG CAPSULE PO SCH (20:14)
[2017-03-13] MEDS: CEFEPIME 1 GM in NS 100 ML IV SCH ×4 (03:50→20:20)
[2017-03-13] MEDS: OMEPRAZOLE 20 MG CAPSULE PO SCH (06:31)
[2017-03-13] MEDS: BUDESONIDE INH.SOLN 0.5mg/2ml NEB AEROSOL SCH ×2 (06:53→19:33)
[2017-03-13] MEDS: ALBUTEROL/IPRATROPIUM 2.5mg-0.5mg/3ml NEB AEROSOL SCH ×5 (06:53→19:33)
[2017-03-13] MEDS ORDERED: PredniSONE 10 MG TABLET PO SCH (08:00)
[2017-03-13] MEDS: GABAPENTIN 600 MG TABLET PO SCH ×2 (08:32→13:16)
[2017-03-13] MEDS: CIPROFLOXACIN 500 MG TABLET PO SCH ×2 (08:32→20:20)
[2017-03-13] MEDS: DIVALPROEX 250 MG TABLET PO SCH ×2 (08:32→20:20)
[2017-03-13] MEDS: FUROSEMIDE 40 MG/4 ML INJECTION IVP SCH (08:33)
[2017-03-13] MEDS: FLUTICASONE NASAL SPRAY 50mcg EA NOSTRIL SCH (08:33)
[2017-03-13] MEDS: ENOXAPARIN 40 MG/0.4 ML INJECTION SQ SCH (08:33)
--- NOTE | 2017-03-13 08:42 | XRay Report ---
INDICATION: pna PROCEDURE: CHEST 2-VIEWS UPRIGHT (PA & LAT) Encounter: Initial COMPARISON: March 10, 2017 FINDINGS: Worsening airspace consolidation in the left lower lobe. Aeration of the right lung is slightly improved. Small effusions. No pneumothorax. Heart size and mediastinal contours are stable. Pulmonary vascularity is normal. Impression: Increasing left lower lobe airspace disease. .
[2017-03-13] MEDS: INSULIN ASPART 100unit/ml INJECTION SQ PRN ×3 (10:22→20:21)
--- NOTE | 2017-03-13 17:37 | Progress Note ---
<Sera Shea - Last Filed: 03/13/17 17:34> - Date 03/13/17 Subjective: Patient seen today sitting in her bed. She has no complaints at this time other than feeling tired, which she states is chronic for her. She doesn't feel her breathing is any different than when she came in. She's not having much cough. Appetite is okay. Bowels are moving. She feels like her breathing will be better when she can smoke her 2 cigarettes every morning. She states she's not willing to give up smoking at this time. Objective Vital signs: Temperature 97.3 F 03/13/17 16:03 Pulse Rate 75 03/13/17 16:03 Respiratory Rate 24 03/13/17 16:03 Blood Pressure 143/72 H 03/13/17 16:03 Pulse Oximetry 93 03/13/17 16:03 Height/Weight/BMI: Weight 114.4 kg - Constitutional Present: no acute distress, well nourished, well developed, obese - Routine HEENT Exam Head: Present: normocephalic, atraumatic - Routine Respiratory Exam Present: decreased breath sounds (bilateral bases), CTA bilaterally. Absent: wheezes - Routine Cardiovascular Exam Present: RRR, S1, S2. Absent: murmur - Routine Abdominal Exam Present: soft, normoactive bowel sounds, non distended. Absent: tenderness - Routine Extremities Exam Present: edema (2+ pitting - pedal), normal capillary refill - Routine Skin Exam Present: dry, warm - Routine Neurological Exam Present: alert, oriented X3 - Routine Lymphatic Exam Lymphatic: Absent: adenopathy - Routine Psychiatric Exam Present: normal affect, cooperative Results - Labs CBC & Chem 7: 03/13/17 04:13 03/13/17 04:13 - Echocardiogram Echocardiogram: pending - Imaging and Cardiology Chest x-ray Additional comments: Date of Exam: 03/13/17 Ordering Provider: Jessica Guzman APRN Type of Exam(s): XR chest 2V Reason for Exam(s): pna INDICATION: pna PROCEDURE: CHEST 2-VIEWS UPRIGHT (PA & LAT) Encounter: Initial COMPARISON: March 10, 2017 FINDINGS: Worsening airspace consolidation in the left lower lobe. Aeration of the right lung is slightly improved. Small effusions. No pneumothorax. Heart size and mediastinal contours are stable. Pulmonary vascularity is normal. Impression: Increasing left lower lobe airspace disease. Assessment and Plan (1) Acute exacerbation of chronic obstructive airways disease Current visit: Yes Status: Acute (2) Acute febrile illness Current visit: Yes Status: Acute Assessment and Plan: Impression Acute on chronic hypoxic respiratory failure. Currently on her usual 5 L of oxygen Healthcare associated pneumonia -improving Question HUBERT versus hypercapnic failure COPD exacerbation-moderately severe to severe COPD Hyperglycemia-A1c of 5.9 Chronic edema-echocardiogram is pending Hepatitis C GERD BPAD with paranoia Tobaccoism Plan: Given her complaint of chronic fatigue and her pulmonary status, question if she would benefit from BiPAP. Will discuss further with pulmonology. She is not having any wheezing in her oxygen levels are back to her baseline, will decrease steroids to 20 mg daily and continue antibiotics. Suspicion she could have some CHF given her elevated BNP and her edema. Echo is still pending. She has been declining some of her Lasix doses she doesn't like to take them near bedtime. Will change the dosing to 6 AM and 2 PM. Give her an extra 20 mg in the morning. She is still having some hyperglycemia, will change to carbohydrate controlled diet. Again encouraged tobacco cessation, but she is not willing at this time. Hospital Course Summary Disclaimer: The visit summary below is not to be considered part of the above Progress Note. Hospital Course: 03/10/17 15:29 Impression: Acute on Chronic Respiratory Failure Hypoxemia Acute febrile illness COPD with exacerbation Fluid overload with suspected Heart Failure Mood Disorder with paranoia and disability. Tobacco user. Chronic pain Plan: 03/10/17 O2 per [place], Titrate to effect. Scheduled Duoneb, Pulmicort. Schedule Solumedrol. Add Ceftriaxone/Azithro to cover possible infiltrate. Assess Resp Viral PCR. She has had Flu shot this year. Will start IV diuresis, as she seems quite fluid overloaded. Supplemental KCL while on Lasix. Assess echo on Sunday. Add tele, continuous O2. Resume home meds for Mood and Pain. Will add PRN Nicoderm patch and Ativan due to risk for anxiety given mental illness. Repeat labs in AM for stability. Monitor AM glucose via lab draws. If elevated,will need to start accu checks. Add LMWH for prophylaxis. 03/11/17 -Check Echo Sunday for EF and PAP -Continue antibiotics, resp therapy, steroids 03/12/17 Continue antibiotics, steroids and breathing treatments. Appreciate pulm's input. GI consult re: Hep C on OP basis. 03/13/17 Given her complaint of chronic fatigue and her pulmonary status, question if she would benefit from BiPAP. Will discuss further with pulmonology. She is not having any wheezing in her oxygen levels are back to her baseline, will decrease steroids to 20 mg daily and continue antibiotics. Suspicion she could have some CHF given her elevated BNP and her edema. Echo is still pending. She has been declining some of her Lasix doses she doesn't like to take them near bedtime. Will change the dosing to 6 AM and 2 PM. Give her an extra 20 mg in the morning. She is still having some hyperglycemia, will change to carbohydrate controlled diet. Again encouraged tobacco cessation, but she is not willing at this time. <Gita Espinoza - Last Filed: 03/13/17 18:31> - Date 03/13/17 Objective Vital signs: Temperature 97.3 F 03/13/17 16:03 Pulse Rate 75 03/13/17 16:03 Respiratory Rate 24 03/13/17 16:03 Blood Pressure 143/72 H 03/13/17 16:03 Pulse Oximetry 93 03/13/17 16:03 Height/Weight/BMI: Weight 114.4 kg Results - Labs CBC & Chem 7: 03/13/17 04:13 03/13/17 04:13 Assessment and Plan (1) Acute exacerbation of chronic obstructive airways disease Current visit: Yes Status: Acute (2) Acute febrile illness Current visit: Yes Status: Acute Assessment and Plan: 03/13/2017-I reviewed this chart, the patient history, and the TIE TAPE MACHINE OPERATOR's/PA's documented findings as above. We discussed and formulated the assessment and plan as above with the additions below.-Dr. Espinoza The patient was seen earlier this evening. She states her breathing is stable. She has some chronic left hip pain that is unchanged. She denies any other pain. She is eating and drinking well. No nausea or vomiting. Bowels are moving well. She has been up walking in the halls without difficulties. She is not requiring a walker. On exam she is alert and in no acute distress. She does appear to have generalized edema. Chest reveals minimal expiratory wheezing. Cardiovascular reveals a regular rate and rhythm. Abdomen is soft and nontender. Extremities reveal 2+ edema. MRSA nasal swab was negative. Chest x-ray on my viewing per radiology reveals worsening airspace consolidation in the left lower lobe compared to March 10. Aeration of the right lung is slightly improved. Small effusions. No pneumothorax. Heart size and mediastinal contours are stable. Pulmonary vascularity is normal. Overall, the patient appears to be continuing to improve. We'll continue Cipro oral and IV cefepime. Cultures are negative to date. Hyperkalemia has resolved. Recheck lab tomorrow. Possible discharge in the next 1-2 days. Hospital Course Summary Disclaimer: The visit summary below is not to be considered part of the above Progress Note.
[2017-03-13] MEDS ORDERED: FUROSEMIDE 40 MG/4 ML INJECTION IVP ONE (17:51)
[2017-03-13] MEDS: GABAPENTIN 300 MG CAPSULE PO SCH (20:20)
[2017-03-13] MEDS: SIMVASTATIN 20 MG TABLET PO SCH (20:21)
[2017-03-13] MEDS: OLANZapine 10 MG TABLET PO SCH (20:21)
[2017-03-13] MEDS: TRAMADOL 50 MG TABLET PO PRN (20:36)
[2017-03-14] MEDS: CEFEPIME 1 GM in NS 100 ML IV SCH ×4 (05:43→21:39)
[2017-03-14] MEDS: OMEPRAZOLE 20 MG CAPSULE PO SCH (05:44)
[2017-03-14] MEDS: FUROSEMIDE 40 MG/4 ML INJECTION IVP SCH ×2 (05:44→13:31)
[2017-03-14] MEDS: TRAMADOL 50 MG TABLET PO PRN ×3 (05:52→21:55)
[2017-03-14] MEDS ORDERED: FUROSEMIDE 20 MG/2 ML INJECTION IVP ONE (06:00)
[2017-03-14] MEDS: ALBUTEROL/IPRATROPIUM 2.5mg-0.5mg/3ml NEB AEROSOL SCH ×4 (07:04→19:27)
[2017-03-14] MEDS: BUDESONIDE INH.SOLN 0.5mg/2ml NEB AEROSOL SCH ×2 (07:04→19:27)
[2017-03-14] MEDS: PredniSONE 20 MG TABLET PO SCH (08:33)
[2017-03-14] MEDS: GABAPENTIN 600 MG TABLET PO SCH ×2 (08:33→13:32)
[2017-03-14] MEDS: DIVALPROEX 250 MG TABLET PO SCH ×2 (08:33→21:59)
[2017-03-14] MEDS: ENOXAPARIN 40 MG/0.4 ML INJECTION SQ SCH (08:33)
[2017-03-14] MEDS: CIPROFLOXACIN 500 MG TABLET PO SCH ×2 (08:33→21:42)
[2017-03-14] MEDS: FLUTICASONE NASAL SPRAY 50mcg EA NOSTRIL SCH (08:34)
[2017-03-14] MEDS: ACETAMINOPHEN 325 MG TABLET PO PRN (10:40)
--- NOTE | 2017-03-14 14:03 | Pulmonology Progress Note ---
Subjective Principal diagnosis: COPD exacerbation Interval history: Pt currently up to EOB, doing better, states no SOB, cough or sputum at this time. Still with wheezing noted and refuses to stop smoking. Exam Vital signs: Temperature 97.3 F 03/14/17 08:00 Pulse Rate 80 03/14/17 08:00 Respiratory Rate 24 03/14/17 11:25 Blood Pressure 132/65 03/14/17 08:00 Pulse Oximetry 92 03/14/17 11:50 - Constitutional no acute distress, morbidly obese - Routine HEENT Exam Head: Present: normocephalic, atraumatic Eye: Present: EOMI, PERRL - Routine Neck Exam Present: supple, full ROM - Routine Respiratory Exam Present: decreased breath sounds, wheezes - Routine Cardiovascular Exam Present: RRR, no murmur - Routine Abdominal Exam Present: soft, normoactive bowel sounds - Routine Extremities Exam Present: edema, non tender, full ROM - Routine Back/Spine/Pelvis Exam Back/Spine: Present: full ROM - Routine Skin Exam Present: intact, dry - Routine Neurological Exam Present: alert, oriented X3, CN II-XII intact - Routine Psychiatric Exam Present: normal affect, normal thought process Assessment and Plan - Assessment and Plan Acute Hypoxic Respiratory Failure - Uses 5L O2 at [facility] home, ? if just at night HCAP COPD exacerbation - likely mod severe to sever COPD HUBERT vs Hypercapnic failure Tobaccoism Plan: Pt currently on O2 at 2L per [place] and tolerating. ABG was 7.4/61/65, likely cause of daytime sleepiness and fatigue. Will speak with CM to see what she is able to have at the [facility] home, will try on bipap here to see if she tolerates. Still on BT's with pulmicort BID and a/a QID with prednisone 20mg daily, still with wheezing noted. Still on cipro and cefepime for HCAP no CXR today, encourage IS and cough. Still awaiting echo, will continue to follow. Pt refusing to stop smoking. - Time Spent With Patient Total time spent is greater than 50% in coordination of care (as documented) at patient's floor/unit and/or counseling patient: less than 15 minutes
--- NOTE | 2017-03-14 16:01 | Echocardiogram ---
DATE OF SERVICE 03/12/2017 INDICATION Edema. TECHNICAL Technically fair 2-D, M-mode, Doppler echocardiographic images were submitted for interpretation. FINDINGS 1. CARDIAC CHAMBERS. Left atrial size upper-normal range, measured 3.9 cm. Left ventricle is borderline enlarged at 5.7 cm. RV size and contractility appeared normal. Aortic root diameter is normal. 2. LEFT VENTRICLE. Wall motion analysis showed some increased echogenicity in the anteroseptum and slight thinning. It measured 8.4 mm. Posterior wall measured 9.5 mm, appeared to have better contractility. Regional wall motion abnormality including the anteroseptum and anterior wall with hypokinesis present. Findings of moderate ischemic cardiomyopathy. Ejection fraction is estimated about 35%. Diastolic function parameters are normal. 3. VALVES. Aortic valve as seen on limited views exhibits very slight sclerosis and visually unrestricted opening. Mitral valve structure and motion appear unremarkable with only minimal sclerosis, normal valve excursion. Tricuspid valve structure and motion appeared normal, normal valve excursion. 4. DOPPLER. Shows trace regurgitation involving mitral and tricuspid valves. Flow velocity at the aortic valve level is slightly increased at 1.9 m/sec with peak and mean pressure gradient 15 and 8 mmHg. LVOT diameter of 2 cm calculates an aortic valve area of 1.38 cm2, but this does not appear to be accurate. Diastolic function parameters are normal. 5. No evidence of significant pericardial effusion, intracardiac masses, thrombi, vegetations or shunt. A very limited subcostal view suggests hypervolemia with a dilated IVC. No intracardiac thrombi identified. IMPRESSION 1. A technically fair study. 2. Borderline LV enlargement. 3. Moderate ischemic cardiomyopathy. Ejection fraction measured 35% and visually estimated at 35-40%. 4. Mild aortic stenosis cannot be excluded (see comment above under aortic valve study and Doppler). 5. Probably elevated central venous pressure. 6. Systolic PA pressure of 26 mmHg remains normal. Report was provided to the referring hospitalist. DEMARD
--- NOTE | 2017-03-14 20:38 | Cardiology Consult Note ---
History of Present Illness Consult reason: congestive heart failure, shortness of breath History of present illness: Complex 52-year-old female poor historian without prior known heart disease she has long-standing history of bipolar disorder COPD with heavy smoking up to 3 packs a day chronic respiratory failure on 5 L of oxygen. She presented with worsening dyspnea and hypoxemia but no chest pain She is treated for COPD exacerbation and pneumonia she also had a prior bronchoscopy for atelectasis. She was noted to have a pulmonary congestion on chest x-ray and increased peripheral edema. She has a CO2 retention and she is being contemplated to go on BiPAP with primary consultation. . Patient denies any angina .she is not active she walks short distance due to the dining room at the facility where she resides and goes outside sometimes to smoke. She had an abnormal troponin and EKG with nonspecific T-wave abnormality in inferior leads no acute ST depression or elevation or diagnostic Q waves. Troponin was negative for admission. Chest x-ray from yesterday shows bibasilar infiltrates versus atelectatic plates and slight upper airway congestion is suggested with subtle cephalization and cardiomegaly I was asked to consult on the patient to 2 abnormal echocardiogram that showed anterior wall hypokinesis and depressed LV ejection fraction of 35% possible mild aortic stenosis Review of Systems All systems PM: 10-point ROS was reviewed, no additional remarkable complaints except - Cardiovascular Cardiovascular: Present: dyspnea on exertion, edema. Absent: chest pain, palpitations, syncope Rhythm: Present: regular rhythm [facility] Medical History Acute exacerbation of chronic obstructive airways disease (Acute Medical) Acute febrile illness (Acute Medical) Surgical History: Tubal - Social History Smoking status: Current every day smoker Current residence: [facility] Medications Home Medications Medication Instructions Recorded Confirmed Type Acetaminophen 650 mg PO Q6HR PRN 03/10/17 03/10/17 History Albuterol Neb (0.083%) [Proventil 1 vial INH PRN PRN 03/10/17 03/10/17 History Neb (0.083%)] Albuterol Sulfate [Proair Hfa] 2 puff INH TID PRN 03/10/17 03/10/17 History Divalproex [Depakote] 2 tab PO AM 03/10/17 03/10/17 History Divalproex [Depakote] 3 tab PO HS 03/10/17 03/10/17 History Fluticasone Nasal [place] [Flonase] 2 spray JHON DAILY 03/10/17 03/10/17 History Furosemide [Lasix] 40 mg PO DAILY 03/10/17 03/10/17 History Gabapentin 900 mg PO HS 03/10/17 03/10/17 History Gabapentin [Neurontin] 600 mg PO BID 03/10/17 03/10/17 History Guaifenesin/Dextromethorphan 10 ml PO Q4HR PRN 03/10/17 03/10/17 History [Robafen Dm Cgh-Chest Eric Syrp] Mag Hydrox/Aluminum Hyd/Simeth 15 ml PO Q6HR PRN 03/10/17 03/10/17 History [Maalox Advanced Suspension] Meloxicam 15 mg PO DAILY 03/10/17 03/10/17 History Milk of Magnesia [Mom] 30 ml PO DAILY PRN 03/10/17 03/10/17 History Multivitamin [One Daily 1 each PO DAILY 03/10/17 03/10/17 History Multivitamin] OLANZapine [Olanzapine] 10 mg PO HS 03/10/17 03/10/17 History Omeprazole 20 mg PO ACB 03/10/17 03/10/17 History Simvastatin 20 mg PO HS 03/10/17 03/10/17 History Tramadol [Ultram] 50 mg PO TID PRN 03/10/17 03/10/17 History Allergies Allergy/AdvReac Type Severity Reaction Status Date / Time No Known Allergies Allergy Verified 03/10/17 09:45 Exam Vital signs: Temperature 97.3 F 03/14/17 08:00 Pulse Rate 91 03/14/17 16:00 Respiratory Rate 16 03/14/17 19:27 Blood Pressure 132/65 03/14/17 08:00 Pulse Oximetry 95 03/14/17 19:27 - Constitutional no acute distress, morbidly obese - Routine HEENT Exam Head: Present: normocephalic, atraumatic Eye: Present: EOMI, PERRL ENT: Present: mucous membranes moist - Routine Neck Exam Absent: JVD, lymphadenopathy, thyromegaly - Routine Respiratory Exam Present: decreased breath sounds, wheezes (scattered expiratory wheezes in bases without crackles), diminished air movement. Absent: rales - Routine Cardiovascular Exam Present: RRR, S1 (distant), S2 (distant), murmur (soft 1/6 SHAWNA). Absent: JVD - Routine Abdominal Exam Present: soft, normoactive bowel sounds, non distended, non tender. Absent: organomegaly - Routine Extremities Exam Present: edema ( dense edema 1-2+ bilateral lower extremities). Absent: cyanosis, clubbing - Routine Skin Exam Present: intact, dry. Absent: cyanosis, erythema - Routine Neurological Exam Present: alert, oriented X3, CN II-XII intact, moving all extremities, vision grossly intact, hearing grossly intact, normal speech. Absent: motor deficit, facial asymmetry - Routine Psychiatric Exam Present: normal affect, cooperative Results 03/13/17 04:13 03/14/17 08:17 Comprehensive Metabolic Panel 03/14/17 Range/Units 08:17 Sodium 145 H (134-144) MEQ/L Potassium 3.9 (3.6-5) MEQ/L Chloride 96 L (98-107) MEQ/L Carbon Dioxide 39 H (22-30) MEQ/L BUN 31.0 H (7-17) MG/DL Creatinine 0.7 (0.7-1.2) MG/DL Glucose 79 (65-110) MG/DL Calcium 9.6 D (8.4-10.2) MG/DL Intake and Output 03/14/17 03/14/17 03/14/17 06:59 14:59 22:59 Intake Total 200 / 200 890 / 890 454 / 454 Output Total 750 / 750 650 / 650 1300 / 1300 Balance -550 / -550 240 / 240 -846 / -846 Intake: IV 200 / 200 100 / 100 Cefepime 1 gm In Ns 100 200 / 200 100 / 100 ml @ 200 mls/hr IV Q6HR [facility] Rx#:[id number] Oral 200 / 200 690 / 690 354 / 354 Output: Urine 750 / 750 650 / 650 1300 / 1300 Other: Urine Appearance Clear Clear Clear Urine Color Dark Yellow Pale Pale Urine Odor Normal # Voids 1 2 Weight 114 kg Patient Weight 03/15/17 06:59 Weight 114 kg - EKG Interpretation EKG: sinus rhythm Assessment and Plan - Assessment and Plan (1) Systolic congestive heart failure Current visit: Yes Status: Acute Patient counseled on a low sodium diet. She appears to use a lot of salt base reaction Provide CHF education Agree with gentle and careful diuresis with monitoring of serum bicarbonate level to prevent metabolic alkalosis this patient with severe COPD obesity hypoventilation and CO2 retention. If that is to happen especially with a pH is high can be treated with careful doses of Diamox. We'll set patient amount of heart failure regimen including the lisinopril, spironolactone, DC potassium, agree with furosemide, low-dose metoprolol ER may be better tolerated than carvedilol due to wheezing and monitoring of her wheezing basic metabolic profile and blood pressure Once patient's more stable from a respiratory standpoint expected by early next week, the role of heart catheterization fully discussed with her the indication alternatives risks and benefits and she said she would be willing to proceed. We'll make sure she is on aspirin for suspected ischemic myopathy. This was discussed with Dr. Espinoza in agreement with the plan Hospital Course Summary Disclaimer: The visit summary below is not to be considered part of the above Progress Note. Hospital Course: 03/10/17 15:29 Impression: Acute on Chronic Respiratory Failure Hypoxemia Acute febrile illness COPD with exacerbation Fluid overload with suspected Heart Failure Mood Disorder with paranoia and disability. Tobacco user. Chronic pain Plan: 03/10/17 O2 per [place], Titrate to effect. Scheduled Duoneb, Pulmicort. Schedule Solumedrol. Add Ceftriaxone/Azithro to cover possible infiltrate. Assess Resp Viral PCR. She has had Flu shot this year. Will start IV diuresis, as she seems quite fluid overloaded. Supplemental KCL while on Lasix. Assess echo on Sunday. Add tele, continuous O2. Resume home meds for Mood and Pain. Will add PRN Nicoderm patch and Ativan due to risk for anxiety given mental illness. Repeat labs in AM for stability. Monitor AM glucose via lab draws. If elevated,will need to start accu checks. Add LMWH for prophylaxis. 03/11/17 -Check Echo Sunday for EF and PAP -Continue antibiotics, resp therapy, steroids 03/12/17 Continue antibiotics, steroids and breathing treatments. Appreciate pulm's input. GI consult re: Hep C on OP basis. 03/13/17 Given her complaint of chronic fatigue and her pulmonary status, question if she would benefit from BiPAP. Will discuss further with pulmonology. She is not having any wheezing in her oxygen levels are back to her baseline, will decrease steroids to 20 mg daily and continue antibiotics. Suspicion she could have some CHF given her elevated BNP and her edema. Echo is still pending. She has been declining some of her Lasix doses she doesn't like to take them near bedtime. Will change the dosing to 6 AM and 2 PM. Give her an extra 20 mg in the morning. She is still having some hyperglycemia, will change to carbohydrate controlled diet. Again encouraged tobacco cessation, but she is not willing at this time.
[2017-03-14] MEDS: GABAPENTIN 300 MG CAPSULE PO SCH (21:40)
[2017-03-14] MEDS: ASPIRIN 325 MG TABLET PO SCH (21:40)
[2017-03-14] MEDS: SALINE FLUSH 10ml SYRINGE IVF PRN (21:40)
[2017-03-14] MEDS: OLANZapine 10 MG TABLET PO SCH (21:42)
[2017-03-14] MEDS: SIMVASTATIN 20 MG TABLET PO SCH (21:42)
[2017-03-14] MEDS: LORazepam 0.5 MG TABLET PO PRN (21:55)
--- NOTE | 2017-03-14 22:08 | Progress Note ---
- Date 03/14/17 Subjective: The patient was seen today earlier in her room. She states her breathing is about the same. She has chronic mild shortness of breath. She has had no significant cough. She has been walking in the halls. She denies any chest pain. She is eating and drinking okay. She denies any nausea or vomiting. She denies any diarrhea. She does state she feels "tired all the time". She also states she had some neck pain last night but that is gone now. She has chronic hip and low back pain. She states her mood is doing very good. Objective Vital signs: Temperature 97.3 F 03/14/17 08:00 Pulse Rate 91 03/14/17 16:00 Respiratory Rate 16 03/14/17 19:27 Blood Pressure 132/65 03/14/17 08:00 Pulse Oximetry 95 03/14/17 19:27 Height/Weight/BMI: Weight 114 kg Comments: GEN-alert, oriented, no acute distress CV-regular rate and rhythm CHEST-expiratory wheezes bilaterally ABD-soft, obese, nontender with positive bowel sounds -no Scott EXT-+1-2 lower extremity edema NEURO-no focal deficits SKIN-warm and dry and without rashes Results - Labs CBC & Chem 7: 03/13/17 04:13 03/14/17 08:17 Labs: TSH is 6.23 which is mildly high, free T4 is pending - Echocardiogram Echocardiogram: Echocardiogram IMPRESSION 1. A technically fair study. 2. Borderline LV enlargement. 3. Moderate ischemic cardiomyopathy. Ejection fraction measured 35% and visually estimated at 35-40%. 4. Mild aortic stenosis cannot be excluded (see comment above under aortic valve study and Doppler). 5. Probably elevated central venous pressure. 6. Systolic PA pressure of 26 mmHg remains normal. Assessment and Plan (1) Acute exacerbation of chronic obstructive airways disease Current visit: Yes Status: Acute (2) Acute febrile illness Current visit: Yes Status: Acute Assessment and Plan: 03/14/2017 Impression Acute on chronic hypoxic respiratory failure. Currently on her usual 5 L of oxygen Healthcare associated pneumonia -improving Systolic heart failure -new diagnosis, likely ischemic cardiomyopathy Question HUBERT versus hypercapnic failure COPD exacerbation-moderately severe to severe COPD Hyperglycemia-A1c of 5.9 Chronic edema-echocardiogram is pending Hepatitis C GERD BAD with paranoia Tobaccoism Mild elevation of TSH-free T4 is pending Plan Dr. Cooper was consulted regarding the patient's newly diagnosed systolic heart failure. His help is greatly appreciated. He will start her on lisinopril, spironolactone, and continue furosemide. Considering beta kat. Potassium is discontinued. She will need a heart catheterization when respiratory status has improved. Continue steroids and breathing treatments for COPD exacerbation. Repeat lab in the morning, may need to adjust Lasix. Continue to monitor Accu-Cheks. Sliding scale insulin was discontinued because of hypoglycemia She will be started on a trial of BiPAP tonight. We'll see if that will help with her fatigue. Start low-sodium diet Continue to increase activity as tolerated. Discussed today with Dr. Cooper, primary care physician , and DOV Elizalde with Dr. White [place] Hospital Course Summary Disclaimer: The visit summary below is not to be considered part of the above Progress Note. Hospital Course: 03/10/17 15:29 Impression: Acute on Chronic Respiratory Failure Hypoxemia Acute febrile illness COPD with exacerbation Fluid overload with suspected Heart Failure Mood Disorder with paranoia and disability. Tobacco user. Chronic pain Plan: 03/10/17 O2 per NC, Titrate to effect. Scheduled Duoneb, Pulmicort. Schedule Solumedrol. Add Ceftriaxone/Azithro to cover possible infiltrate. Assess Resp Viral PCR. She has had Flu shot this year. Will start IV diuresis, as she seems quite fluid overloaded. Supplemental KCL while on Lasix. Assess echo on Sunday. Add tele, continuous O2. Resume home meds for Mood and Pain. Will add PRN Nicoderm patch and Ativan due to risk for anxiety given mental illness. Repeat labs in AM for stability. Monitor AM glucose via lab draws. If elevated,will need to start accu checks. Add LMWH for prophylaxis. 03/11/17 -Check Echo Sunday for EF and PAP -Continue antibiotics, resp therapy, steroids 03/12/17 Continue antibiotics, steroids and breathing treatments. Appreciate pulm's input. GI consult re: Hep C on OP basis. 03/13/17 Given her complaint of chronic fatigue and her pulmonary status, question if she would benefit from BiPAP. Will discuss further with pulmonology. She is not having any wheezing in her oxygen levels are back to her baseline, will decrease steroids to 20 mg daily and continue antibiotics. Suspicion she could have some CHF given her elevated BNP and her edema. Echo is still pending. She has been declining some of her Lasix doses she doesn't like to take them near bedtime. Will change the dosing to 6 AM and 2 PM. Give her an extra 20 mg in the morning. She is still having some hyperglycemia, will change to carbohydrate controlled diet. Again encouraged tobacco cessation, but she is not willing at this time.
[2017-03-15] MEDS ORDERED: NS FLUSH BAG 500ml IV PRN (01:18)
[2017-03-15] MEDS: SALINE FLUSH 10ml SYRINGE IVF PRN ×3 (03:34→09:57)
[2017-03-15] MEDS: CEFEPIME 1 GM in NS 100 ML IV SCH ×4 (03:34→23:08)
[2017-03-15] MEDS: FUROSEMIDE 40 MG/4 ML INJECTION IVP SCH ×2 (06:04→13:29)
[2017-03-15] MEDS: OMEPRAZOLE 20 MG CAPSULE PO SCH (06:04)
[2017-03-15] MEDS: ACETAMINOPHEN 325 MG TABLET PO PRN (06:06)
[2017-03-15] MEDS: ALBUTEROL/IPRATROPIUM 2.5mg-0.5mg/3ml NEB AEROSOL SCH ×4 (07:13→21:18)
[2017-03-15] MEDS: BUDESONIDE INH.SOLN 0.5mg/2ml NEB AEROSOL SCH ×2 (07:13→21:18)
[2017-03-15] MEDS ORDERED: SPIRONOLACTONE 25 MG TABLET PO SCH (09:00)
[2017-03-15] MEDS ORDERED: ASPIRIN 81 MG CHEWABLE TABLET PO SCH (09:00)
[2017-03-15] MEDS ORDERED: LISINOPRIL 2.5 MG TABLET PO SCH (09:00)
[2017-03-15] MEDS: DIVALPROEX 250 MG TABLET PO SCH ×2 (09:52→23:07)
[2017-03-15] MEDS: PredniSONE 20 MG TABLET PO SCH (09:55)
[2017-03-15] MEDS: GABAPENTIN 600 MG TABLET PO SCH ×2 (09:56→13:29)
[2017-03-15] MEDS: CIPROFLOXACIN 500 MG TABLET PO SCH ×2 (09:56→23:11)
[2017-03-15] MEDS: ENOXAPARIN 40 MG/0.4 ML INJECTION SQ SCH (09:57)
[2017-03-15] MEDS: ASPIRIN 325 MG TABLET PO SCH (10:17)
[2017-03-15] MEDS: SPIRONOLACTONE 25 MG TABLET PO SCH (10:17)
[2017-03-15] MEDS: FLUTICASONE NASAL SPRAY 50mcg EA NOSTRIL SCH (10:22)
--- NOTE | 2017-03-15 18:02 | Progress Note ---
<Leny Givens V - Last Filed: 03/15/17 17:59> - Date 03/15/17 Subjective: Julia is seen this evening in follow up getting ready to eat dinner. She is currently on 3 liters of oxygen and she feels overall that her breathing has improved since admission. Denies having chest pain or GI concerns. Did not tolerate Bipap overnight. Objective Vital signs: Temperature 97.6 F 03/15/17 15:52 Pulse Rate 90 03/15/17 16:00 Respiratory Rate 22 03/15/17 15:52 Blood Pressure 145/87 H 03/15/17 15:52 Pulse Oximetry 93 03/15/17 15:52 Height/Weight/BMI: Weight 111.5 kg - Constitutional Present: no acute distress, well nourished, well developed - Routine HEENT Exam Eye: Present: EOMI ENT: Present: mucous membranes moist, dentition normal - Routine Respiratory Exam Present: CTA bilaterally. Absent: wheezes - Routine Cardiovascular Exam Present: RRR, S1, S2. Absent: murmur - Routine Abdominal Exam Present: soft, normoactive bowel sounds, non distended. Absent: tenderness - Routine Extremities Exam Present: edema (trace-1+bilateral lower ext) - Routine Back/Spine/Pelvis Exam Back/Spine: Present: full ROM - Routine Skin Exam Present: intact, dry, warm - Routine Neurological Exam Present: alert, oriented X3, CN II-XII intact - Routine Lymphatic Exam Lymphatic: Absent: adenopathy - Routine Psychiatric Exam Present: normal affect Results - Labs CBC & Chem 7: 03/13/17 04:13 03/14/17 08:17 Assessment and Plan (1) Acute exacerbation of chronic obstructive airways disease Current visit: Yes Status: Acute (2) Acute febrile illness Current visit: Yes Status: Acute Assessment and Plan: 03/14/2017 Impression Acute on chronic hypoxic respiratory failure. Currently on her usual 5 L of oxygen Healthcare associated pneumonia -improving Systolic heart failure -new diagnosis, likely ischemic cardiomyopathy Question HUEBRT versus hypercapnic failure COPD exacerbation-moderately severe to severe COPD Hyperglycemia-A1c of 5.9 Chronic edema-echocardiogram is pending Hepatitis C GERD BAD with paranoia Tobaccoism Mild elevation of TSH-free T4 is pending Plan Appreciate cardiac consultation by Dr. Cooper. Continue lisinopril, spironolactone, and furosemide. Planning for cardiac cath in the near future as per Dr Cooper Continue to work on COPD with Nebulizers Monitor Accu-Cheks, No further episodes of hypoglycemia Continue Cefepime and Cipro for antimicrobial coverage of HCAP Continue to increase activity as tolerated. Recheck CBC and BMP tomorrow to follow Hypernatremia and blood counts Hospital Course Summary Disclaimer: The visit summary below is not to be considered part of the above Progress Note. Hospital Course: 03/10/17 15:29 Impression: Acute on Chronic Respiratory Failure Hypoxemia Acute febrile illness COPD with exacerbation Fluid overload with suspected Heart Failure Mood Disorder with paranoia and disability. Tobacco user. Chronic pain Plan: 03/10/17 O2 per NC, Titrate to effect. Scheduled Duoneb, Pulmicort. Schedule Solumedrol. Add Ceftriaxone/Azithro to cover possible infiltrate. Assess Resp Viral PCR. She has had Flu shot this year. Will start IV diuresis, as she seems quite fluid overloaded. Supplemental KCL while on Lasix. Assess echo on Sunday. Add tele, continuous O2. Resume home meds for Mood and Pain. Will add PRN Nicoderm patch and Ativan due to risk for anxiety given mental illness. Repeat labs in AM for stability. Monitor AM glucose via lab draws. If elevated,will need to start accu checks. Add LMWH for prophylaxis. 03/11/17 -Check Echo Sunday for EF and PAP -Continue antibiotics, resp therapy, steroids 03/12/17 Continue antibiotics, steroids and breathing treatments. Appreciate pulm's input. GI consult re: Hep C on OP basis. 03/13/17 Given her complaint of chronic fatigue and her pulmonary status, question if she would benefit from BiPAP. Will discuss further with pulmonology. She is not having any wheezing in her oxygen levels are back to her baseline, will decrease steroids to 20 mg daily and continue antibiotics. Suspicion she could have some CHF given her elevated BNP and her edema. Echo is still pending. She has been declining some of her Lasix doses she doesn't like to take them near bedtime. Will change the dosing to 6 AM and 2 PM. Give her an extra 20 mg in the morning. She is still having some hyperglycemia, will change to carbohydrate controlled diet. Again encouraged tobacco cessation, but she is not willing at this time. 03/15/17- Plan Appreciate cardiac consultation by Dr. Cooper. Continue lisinopril, spironolactone, and furosemide. Planning for cardiac cath in the near future as per Dr Cooper Continue to work on COPD with Nebulizers Monitor Accu-Cheks, No further episodes of hypoglycemia Continue Cefepime and Cipro for antimicrobial coverage of HCAP Continue to increase activity as tolerated. Recheck CBC and BMP tomorrow to follow Hypernatremia and blood counts <Gita Espinoza - Last Filed: 03/15/17 19:46> - Date 03/15/17 Objective Vital signs: Temperature 97.6 F 03/15/17 15:52 Pulse Rate 90 03/15/17 16:00 Respiratory Rate 22 03/15/17 15:52 Blood Pressure 145/87 H 03/15/17 15:52 Pulse Oximetry 93 03/15/17 15:52 Height/Weight/BMI: Weight 111.5 kg Results - Labs CBC & Chem 7: 03/13/17 04:13 03/14/17 08:17 Assessment and Plan (1) Acute exacerbation of chronic obstructive airways disease Current visit: Yes Status: Acute (2) Acute febrile illness Current visit: Yes Status: Acute Assessment and Plan: 03/15/2017-I reviewed this chart, the patient history, and the [employer]'s/PA's documented findings as above. We discussed and formulated the assessment and plan as above with the additions below.-Dr. Espinoza Patient is seen this evening in her room. She has a difficult time describing her breathing. She states she doesn't remember what it was like when she initially came into the hospital. She states her breathing to her seems to be back to normal. She states she walked in the halls without difficulty. She continues to have low back pain. On exam she is alert and in no acute distress. Chest reveals expiratory wheezing bilaterally. Cardiovascular reveals a regular rate and rhythm. Abdomen is soft and nontender. Extremities reveal +1 pretibial edema. Weight is down almost 6 kg from 03/12. Impression and plan Pneumonia appears to be improving. She is on day 6 of Cipro and cefepime. Vancomycin was discontinued. Check chest x-ray tomorrow. Regarding COPD exacerbation-symptoms are improving Regarding edema, weight is down 6 kg. Will decrease Lasix to once daily. Check basic metabolic profile tomorrow. Regarding systolic congestive heart failure, likely ischemic cardiomyopathy-Dr. Cooper's help is appreciated. The patient was started on JOSEPH inhibitor, spironolactone and beta kat. Possible heart catheter in the next few days. Add Lidoderm patch for low back pain Discussed today with Dr. Cooper. Hospital Course Summary Disclaimer: The visit summary below is not to be considered part of the above Progress Note.
--- NOTE | 2017-03-15 19:08 | Cardiology Progress Note ---
Subjective Principal diagnosis: COPD exacerbation Interval history: The patient was seen this afternoon she hasn't been up out of bed yet, doing better, states no SOB, cough or sputum at this time. Still with wheezing noted and refuses to stop smoking. Still making a lot of urine with IV diuretics denies angina denies dizziness lightheadedness she feels her breathing is about the same Exam Vital signs: Temperature 97.6 F 03/15/17 15:52 Pulse Rate 90 03/15/17 16:00 Respiratory Rate 22 03/15/17 15:52 Blood Pressure 145/87 H 03/15/17 15:52 Pulse Oximetry 93 03/15/17 15:52 - Constitutional no acute distress, obese - Routine HEENT Exam Head: Present: normocephalic, atraumatic Eye: Present: EOMI, PERRL ENT: Present: mucous membranes moist - Routine Neck Exam Present: normal carotid upstroke. Absent: JVD, carotid bruit - Routine Respiratory Exam Present: decreased breath sounds, wheezes (few scattered bilaterally). Absent: rales - Routine Cardiovascular Exam Present: RRR, S4 - Routine Abdominal Exam Present: soft, normoactive bowel sounds, non distended, non tender. Absent: organomegaly - Routine Skin Exam Present: dry. Absent: cyanosis - Routine Neurological Exam Present: alert, oriented X3, CN II-XII intact, moving all extremities, vision grossly intact, hearing grossly intact, normal speech. Absent: motor deficit, facial asymmetry - Routine Psychiatric Exam Present: cooperative. Absent: normal affect (relatively flat affect unchanged since yesterday probably baseline), good insight Results 03/13/17 04:13 03/14/17 08:17 Intake and Output 03/15/17 03/15/17 03/15/17 06:59 14:59 22:59 Intake Total 368 / 368 470 / 470 100 / 100 Output Total 1250 / 1250 1900 / 1900 500 / 500 Balance -882 / -882 -1430 / -1430 -400 / -400 Intake: IV 100 / 100 100 / 100 100 / 100 Cefepime 1 gm In Ns 100 100 / 100 100 / 100 100 / 100 ml @ 200 mls/hr IV Q6HR [facility] Rx#:[id number] Oral 268 / 268 370 / 370 Output: Urine 1250 / 1250 1900 / 1900 500 / 500 Other: Urine Appearance Cloudy Clear Urine Color Bright Yellow Yellow Yellow Urine Odor Strong Normal Weight 111.5 kg Patient Weight 03/16/17 06:59 Weight 111.5 kg - EKG Interpretation EKG: sinus rhythm Assessment and Plan - Assessment and Plan (1) Systolic congestive heart failure Current visit: Yes Status: Acute Titrate lisinopril up Basic metabolic profile ordered serially need to closely monitor creatinine and potassium level per primary service please, due to lisinopril and the spironolactone on board as well as IV Lasix. Discussed with the Dr. Espinoza Plan heart catheterization in the next few days and see if her respiratory status going to improve some more Increase mobility and will make sure patient is on DVT prophylaxis Also discussed with the hospitalist service Dr. Espinoza that with the patient's depressed ejection fraction, is considered but disqualified for wearable external defibrillator and subsequently an internal defibrillator placement, is contraindicated due to patient's severe psychiatric problems. Hoping that her LV ejection fraction with improved on medical regimen and possible coronary revascularization Suspect coronary artery disease and reviewed lipid profile results she may more benefit from a potent statin so we'll switch her to atorvastatin 40 mg daily at bedtime. I checked her liver enzymes from March 10 results and they were normal. Also return to the patient the recommended no added salt diet. Patient replied that would be quite difficult to do as she apparently adds a lot of salt. Official CHF consultation I was requested yesterday. We'll order a dietitian consult today Hospital Course Summary Disclaimer: The visit summary below is not to be considered part of the above Progress Note. Hospital Course: 03/10/17 15:29 Impression: Acute on Chronic Respiratory Failure Hypoxemia Acute febrile illness COPD with exacerbation Fluid overload with suspected Heart Failure Mood Disorder with paranoia and disability. Tobacco user. Chronic pain Plan: 03/10/17 O2 per [place], Titrate to effect. Scheduled Duoneb, Pulmicort. Schedule Solumedrol. Add Ceftriaxone/Azithro to cover possible infiltrate. Assess Resp Viral PCR. She has had Flu shot this year. Will start IV diuresis, as she seems quite fluid overloaded. Supplemental KCL while on Lasix. Assess echo on Sunday. Add tele, continuous O2. Resume home meds for Mood and Pain. Will add PRN Nicoderm patch and Ativan due to risk for anxiety given mental illness. Repeat labs in AM for stability. Monitor AM glucose via lab draws. If elevated,will need to start accu checks. Add LMWH for prophylaxis. 03/11/17 -Check Echo Sunday for EF and PAP -Continue antibiotics, resp therapy, steroids 03/12/17 Continue antibiotics, steroids and breathing treatments. Appreciate pulm's input. GI consult re: Hep C on OP basis. 03/13/17 Given her complaint of chronic fatigue and her pulmonary status, question if she would benefit from BiPAP. Will discuss further with pulmonology. She is not having any wheezing in her oxygen levels are back to her baseline, will decrease steroids to 20 mg daily and continue antibiotics. Suspicion she could have some CHF given her elevated BNP and her edema. Echo is still pending. She has been declining some of her Lasix doses she doesn't like to take them near bedtime. Will change the dosing to 6 AM and 2 PM. Give her an extra 20 mg in the morning. She is still having some hyperglycemia, will change to carbohydrate controlled diet. Again encouraged tobacco cessation, but she is not willing at this time. 03/15/17- Plan Appreciate cardiac consultation by Dr. Cooper. Continue lisinopril, spironolactone, and furosemide. Planning for cardiac cath in the near future as per Dr Cooper Continue to work on COPD with Nebulizers Monitor Accu-Cheks, No further episodes of hypoglycemia Continue Cefepime and Cipro for antimicrobial coverage of HCAP Continue to increase activity as tolerated. Recheck CBC and BMP tomorrow to follow Hypernatremia and blood counts
[2017-03-15] MEDS: GABAPENTIN 300 MG CAPSULE PO SCH (23:06)
[2017-03-15] MEDS: TRAMADOL 50 MG TABLET PO PRN (23:06)
[2017-03-15] MEDS: ATORVASTATIN 40 MG TABLET PO SCH (23:07)
[2017-03-15] MEDS: LISINOPRIL 5 MG TABLET PO SCH (23:07)
[2017-03-15] MEDS: OLANZapine 10 MG TABLET PO SCH (23:12)
[2017-03-16] MEDS: CEFEPIME 1 GM in NS 100 ML IV SCH ×3 (04:07→14:53)
[2017-03-16] MEDS: TRAMADOL 50 MG TABLET PO PRN ×2 (05:48→21:03)
[2017-03-16] MEDS: OMEPRAZOLE 20 MG CAPSULE PO SCH (05:48)
[2017-03-16] MEDS: SALINE FLUSH 10ml SYRINGE IVF PRN (05:49)
[2017-03-16] MEDS: ALBUTEROL/IPRATROPIUM 2.5mg-0.5mg/3ml NEB AEROSOL SCH ×4 (08:14→19:21)
[2017-03-16] MEDS: BUDESONIDE INH.SOLN 0.5mg/2ml NEB AEROSOL SCH ×2 (08:14→19:21)
--- NOTE | 2017-03-16 08:47 | XRay Report ---
INDICATION: pneumonia PROCEDURE: CHEST 2-VIEWS UPRIGHT (PA & LAT) Encounter: Initial COMPARISON: March 13, 2017 FINDINGS: Right lung airspace disease continues to clear. Left basilar airspace consolidation is stable. Upper lung drew are clear. No pneumothorax. Small left effusion. Heart size and mediastinal contours are stable. Pulmonary vascularity is normal. Impression: Improving aeration of the right lower lobe with persistent left basilar infiltrate. .
[2017-03-16] MEDS: ASPIRIN 81 MG CHEWABLE TABLET PO SCH (08:51)
[2017-03-16] MEDS: PredniSONE 20 MG TABLET PO SCH (08:51)
[2017-03-16] MEDS: SPIRONOLACTONE 25 MG TABLET PO SCH (08:52)
[2017-03-16] MEDS: DIVALPROEX 250 MG TABLET PO SCH ×2 (08:53→21:03)
[2017-03-16] MEDS: GABAPENTIN 600 MG TABLET PO SCH ×2 (08:53→14:53)
[2017-03-16] MEDS: CIPROFLOXACIN 500 MG TABLET PO SCH ×2 (08:53→21:03)
[2017-03-16] MEDS: ENOXAPARIN 40 MG/0.4 ML INJECTION SQ SCH (08:54)
[2017-03-16] MEDS: LIDOCAINE 5% PATCH TOP SCH (08:54)
[2017-03-16] MEDS: FLUTICASONE NASAL SPRAY 50mcg EA NOSTRIL SCH (08:54)
[2017-03-16] MEDS ORDERED: FUROSEMIDE 40 MG/4 ML INJECTION IVP SCH (09:00)
--- NOTE | 2017-03-16 14:09 | Progress Note ---
<Valeria Remy D - Last Filed: 03/16/17 14:16> - Date 03/16/17 Subjective: Patient was seen before lunch. She was very groggy, and answered questions with soft, one-word responses. She was able to deny pain and confirm that her breathing is feeling better. She denies any abdominal pain or nausea/vomiting. She ate well for breakfast. Her nurse reported that she is frequently drowsy. Julia refuses BiPAP. Objective Vital signs: Temperature 97.2 F 03/16/17 07:58 Pulse Rate 76 03/16/17 08:00 Respiratory Rate 20 03/16/17 11:37 Blood Pressure 111/69 03/16/17 07:58 Pulse Oximetry 93 03/16/17 11:37 Height/Weight/BMI: Weight 111.3 kg - Constitutional Present: well nourished, well developed, obese - Routine HEENT Exam Eye: Present: PERRL. Absent: conjunctival icterus ENT: Present: mucous membranes moist - Routine Respiratory Exam Present: decreased breath sounds - Routine Cardiovascular Exam Present: RRR, S1, S2 - Routine Abdominal Exam Present: soft, normoactive bowel sounds, non tender - Routine Extremities Exam Present: edema (2+ B/L) - Routine Skin Exam Present: intact, dry, warm - Routine Neurological Exam Present: oriented X3. Absent: alert (somnolent) - Routine Psychiatric Exam Present: cooperative Results - Labs CBC & Chem 7: 03/16/17 03:57 03/16/17 03:57 - ABG Interpretation Attestation: I reviewed and interpreted this ABG. ABG results: 03/16/17 13:08 ABG pH 7.420 ABG pCO2 71 H* ABG pO2 60 L ABG HCO3 46 H ABG Total CO2 48.3 H ABG O2 Saturation 91.0 L ABG Base Excess 18.0 H Interpretation: abnormal - Imaging and Cardiology Chest x-ray Status: image reviewed by me (b/l infiltrates with RML showing improvement) Assessment and Plan (1) Acute exacerbation of chronic obstructive airways disease Current visit: Yes Status: Acute (2) Acute febrile illness Current visit: Yes Status: Acute Assessment and Plan: IMPRESSION Acute on chronic hypoxic/hypercapnic respiratory failure. Baseline 5L O2. Healthcare associated pneumonia - improving Systolic heart failure - new diagnosis, likely ischemic cardiomyopathy Question HUBERT versus hypercapnic failure COPD exacerbation - moderately severe to severe COPD Hyperglycemia - A1c of 5.9% Hepatitis C GERD BAD with paranoia Tobaccoism Mild elevation of TSH - free T4 normal Morbid obesity PLAN ABG assessed d/t somnolence - hypercarbia (CO2 of 71) with normal pH; hypoxemia (O2 60). Pt refusing BiPAP. D/W RN - will increase O2 to 4L. Encourage increased activity. Bicarb on BMP increased to 42. Weight is down about 6 kg; Dr. Espinoza dc'd IV Lasix for the rest of the day - repeat BMP in am; may need to resume diuretics. HCAP - improving; day #7 of Cipro + cefepime. 5-day vanco course completed. CXR shows improving RLL infiltrate with persistent LLL infiltrate. Dr. Cooper is planning on heart cath in the next few days. Cont JOSEPH-I, spironolactone, BB, and statin. Diamox initiated. D/W dietary - as they were discussing salt intake and the fact that smoking masks taste, pt reported that she's interested in quitting smoking. Tobacco cessation ordered. Cont nebs and prednisone for COPD. Consider pulm consult, at least in outpatient setting. D/W Dr. Espinoza, RN, and dietary. DVT Prophylaxis: Lovenox GI Prophylaxis: other (Prilosec) Hospital Course Summary Disclaimer: The visit summary below is not to be considered part of the above Progress Note. Hospital Course: 03/10/17 15:29 Impression: Acute on Chronic Respiratory Failure Hypoxemia Acute febrile illness COPD with exacerbation Fluid overload with suspected Heart Failure Mood Disorder with paranoia and disability. Tobacco user. Chronic pain Plan: 03/10/17 O2 per NC, Titrate to effect. Scheduled Duoneb, Pulmicort. Schedule Solumedrol. Add Ceftriaxone/Azithro to cover possible infiltrate. Assess Resp Viral PCR. She has had Flu shot this year. Will start IV diuresis, as she seems quite fluid overloaded. Supplemental KCL while on Lasix. Assess echo on Sunday. Add tele, continuous O2. Resume home meds for Mood and Pain. Will add PRN Nicoderm patch and Ativan due to risk for anxiety given mental illness. Repeat labs in AM for stability. Monitor AM glucose via lab draws. If elevated,will need to start accu checks. Add LMWH for prophylaxis. 03/11/17 -Check Echo Sunday for EF and PAP -Continue antibiotics, resp therapy, steroids 03/12/17 Continue antibiotics, steroids and breathing treatments. Appreciate pulm's input. GI consult re: Hep C on OP basis. 03/13/17 Given her complaint of chronic fatigue and her pulmonary status, question if she would benefit from BiPAP. Will discuss further with pulmonology. She is not having any wheezing in her oxygen levels are back to her baseline, will decrease steroids to 20 mg daily and continue antibiotics. Suspicion she could have some CHF given her elevated BNP and her edema. Echo is still pending. She has been declining some of her Lasix doses she doesn't like to take them near bedtime. Will change the dosing to 6 AM and 2 PM. Give her an extra 20 mg in the morning. She is still having some hyperglycemia, will change to carbohydrate controlled diet. Again encouraged tobacco cessation, but she is not willing at this time. 03/15/17- Plan Appreciate cardiac consultation by Dr. Cooper. Continue lisinopril, spironolactone, and furosemide. Planning for cardiac cath in the near future as per Dr Cooper Continue to work on COPD with Nebulizers Monitor Accu-Cheks, No further episodes of hypoglycemia Continue Cefepime and Cipro for antimicrobial coverage of HCAP Continue to increase activity as tolerated. Recheck CBC and BMP tomorrow to follow Hypernatremia and blood counts 03/16/17 ABG assessed d/t somnolence - hypercarbia (CO2 of 71) with normal pH; hypoxemia (O2 60). Pt refusing BiPAP. D/W RN - will increase O2 to 4L. Encourage increased activity. Bicarb on BMP increased to 42. Weight is down about 6 kg; Dr. Espinoza dc'd IV Lasix for the rest of the day - repeat BMP in am; may need to resume diuretics. HCAP - improving; day #7 of Cipro + cefepime. 5-day vanco course completed. CXR shows improving RLL infiltrate with persistent LLL infiltrate. Dr. Cooper is planning on heart cath in the next few days. Cont JOSEPH-I, spironolactone, BB, and statin. Diamox initiated. D/W dietary - as they were discussing salt intake and the fact that smoking masks taste, pt reported that she's interested in quitting smoking. Tobacco cessation ordered. Cont nebs and prednisone for COPD. Consider pulm consult, at least in outpatient setting. <AlexisGita - Last Filed: 03/16/17 17:40> - Date 03/16/17 Objective Vital signs: Temperature 96.8 F 03/16/17 16:00 Pulse Rate 78 03/16/17 16:00 Respiratory Rate 16 03/16/17 16:00 Blood Pressure 132/67 03/16/17 16:00 Pulse Oximetry 94 03/16/17 16:00 Height/Weight/BMI: Weight 111.3 kg Results - Labs CBC & Chem 7: 03/16/17 03:57 03/16/17 03:57 - ABG Interpretation ABG results: 03/16/17 13:08 ABG pH 7.420 ABG pCO2 71 H* ABG pO2 60 L ABG HCO3 46 H ABG Total CO2 48.3 H ABG O2 Saturation 91.0 L ABG Base Excess 18.0 H Assessment and Plan (1) Acute exacerbation of chronic obstructive airways disease Current visit: Yes Status: Acute (2) Acute febrile illness Current visit: Yes Status: Acute Assessment and Plan: 03/16/2017-I reviewed this chart, the patient history, and the [employer]'s/PA's documented findings as above. We discussed and formulated the assessment and plan as above with the additions below.-Dr. Espinoza The patient is seen in her room early this evening. She states that lying in bed is hurting her back. I recommended to her that she sit up in a chair as much as possible during the day, and walk in the halls 3 times a day. She states her breathing is okay today. She does not feel overly drowsy. She states she ate a good lunch today. She states she had a bowel movement today. On exam she was sleeping when I arrived but awoke easily. Chest reveals minimal wheezing today. Cardiovascular reveals a regular rate and rhythm. Abdomen is soft and nontender. Extremities continue to show +1-2 lower extremity edema. Impression and plan Regarding healthcare associated pneumonia, patient is on day 7 of Cipro and cefepime. We'll discontinue cefepime today. Consider DC Cipro soon. Regarding chronic respiratory failure with hypercarbia, the patient has not tolerated BiPAP. Encourage increased activity. Regarding systolic heart failure with EF of 35% and presumed ischemic cardiomyopathy, the patient was started on JOSEPH inhibitor, Lasix, spironolactone , beta kat, aspirin, and statin. Plan is for heart catheterization on Sunday if the patient is medically stable. Regarding COPD exacerbation, consider decreasing prednisone if wheezing continues to improve. Regarding sedation, will decrease gabapentin dose at night. Discussed today with Dr. Cooper. Hospital Course Summary Disclaimer: The visit summary below is not to be considered part of the above Progress Note.
[2017-03-16] MEDS: acetaZOLAMIDE 250 MG TABLET PO SCH ×2 (15:04→21:19)
[2017-03-16] MEDS: GABAPENTIN 300 MG CAPSULE PO SCH (21:02)
[2017-03-16] MEDS: OLANZapine 10 MG TABLET PO SCH (21:03)
[2017-03-16] MEDS: LISINOPRIL 5 MG TABLET PO SCH (21:03)
[2017-03-16] MEDS: ATORVASTATIN 40 MG TABLET PO SCH (21:03)
[2017-03-16] MEDS: LIDOCAINE PATCH REMOVAL TOP SCH (21:19)
[2017-03-17] MEDS: TRAMADOL 50 MG TABLET PO PRN (06:26)
[2017-03-17] MEDS: OMEPRAZOLE 20 MG CAPSULE PO SCH (06:27)
[2017-03-17] MEDS: BUDESONIDE INH.SOLN 0.5mg/2ml NEB AEROSOL SCH ×2 (07:43→20:45)
[2017-03-17] MEDS: ALBUTEROL/IPRATROPIUM 2.5mg-0.5mg/3ml NEB AEROSOL SCH ×4 (07:43→20:45)
[2017-03-17] MEDS: LIDOCAINE 5% PATCH TOP SCH (08:15)
[2017-03-17] MEDS: GABAPENTIN 600 MG TABLET PO SCH ×2 (08:16→11:51)
[2017-03-17] MEDS: PredniSONE 20 MG TABLET PO SCH (08:16)
[2017-03-17] MEDS: acetaZOLAMIDE 250 MG TABLET PO SCH ×2 (08:16→16:18)
[2017-03-17] MEDS: CIPROFLOXACIN 500 MG TABLET PO SCH ×2 (08:16→21:34)
[2017-03-17] MEDS: SPIRONOLACTONE 25 MG TABLET PO SCH (08:16)
[2017-03-17] MEDS: DIVALPROEX 250 MG TABLET PO SCH ×2 (08:17→21:33)
[2017-03-17] MEDS: ENOXAPARIN 40 MG/0.4 ML INJECTION SQ SCH (08:17)
[2017-03-17] MEDS: ASPIRIN 81 MG CHEWABLE TABLET PO SCH (08:19)
[2017-03-17] MEDS: FLUTICASONE NASAL SPRAY 50mcg EA NOSTRIL SCH (08:21)
--- NOTE | 2017-03-17 12:23 | Progress Note ---
<JonelValeria D - Last Filed: 03/17/17 12:12> - Date 03/17/17 Subjective: Julia was resting in bed. She was more alert compared to when I saw her yesterday morning. She reports that she slept well last night. Her back is still hurting her, and I encouraged her to get out of bed into the chair and to go for walks. RN also encouraged her to get up for breakfast but Julia refused. She feels like her breathing is the same. She denies chest pain or cough. She denies abd pain or GI complaints and has had a good appetite. Objective Vital signs: Temperature 97.6 F 03/17/17 07:28 Pulse Rate 87 03/17/17 09:27 Respiratory Rate 16 03/17/17 11:05 Blood Pressure 120/67 03/17/17 07:28 Pulse Oximetry 94 03/17/17 11:15 Height/Weight/BMI: Weight 110.9 kg - Constitutional Present: no acute distress, well nourished, well developed, obese - Routine HEENT Exam Head: Present: normocephalic Eye: Absent: conjunctival icterus ENT: Present: mucous membranes moist, oropharynx clear - Routine Respiratory Exam Present: decreased breath sounds - Routine Cardiovascular Exam Present: RRR, S1, S2 - Routine Abdominal Exam Present: soft, normoactive bowel sounds, non distended, non tender - Routine Extremities Exam Present: edema (1+ B/L) - Routine Skin Exam Present: intact, dry, warm - Routine Neurological Exam Present: alert, oriented X3, normal speech - Routine Psychiatric Exam Present: normal thought process, cooperative Results - Labs CBC & Chem 7: 03/17/17 05:36 03/17/17 05:36 - ABG Interpretation ABG results: 03/16/17 13:08 ABG pH 7.420 ABG pCO2 71 H* ABG pO2 60 L ABG HCO3 46 H ABG Total CO2 48.3 H ABG O2 Saturation 91.0 L ABG Base Excess 18.0 H Assessment and Plan (1) Acute exacerbation of chronic obstructive airways disease Current visit: Yes Status: Acute (2) Acute febrile illness Current visit: Yes Status: Acute Assessment and Plan: IMPRESSION Acute on chronic hypoxic/hypercapnic respiratory failure. Baseline 5L O2. Healthcare associated pneumonia - improving Systolic heart failure - new diagnosis, likely ischemic cardiomyopathy Question HUBERT versus hypercapnic failure COPD exacerbation - moderately severe to severe COPD Hyperglycemia - A1c of 5.9% Hepatitis C GERD BAD with paranoia Tobaccoism Mild elevation of TSH - free T4 normal Morbid obesity PLAN Weight is down from yesterday (111.3 to 110.9 kg) despite holding Lasix. She has one more dose of Diamox to be given this afternoon. CO2 improved from 42 yesterday to 35 today. Will discuss re-introduction of Lasix with attending. Dr. Cooper planning on heart cath on 03/19; continue med mgt for cardiomyopathy. HCAP - clinically improving. Vanco dc'd after 5 day course; cefepime dc'd after 7 day course. Today is day #8 of cipro - likely can dc this soon. COPD - decrease prednisone to 10 mg daily Continue to encourage activity/ambulation though pt has been reluctant. Repeat BMP in am. DVT Prophylaxis: Lovenox Resuscitation Status: Full Code Hospital Course Summary Disclaimer: The visit summary below is not to be considered part of the above Progress Note. Hospital Course: 03/10/17 15:29 Impression: Acute on Chronic Respiratory Failure Hypoxemia Acute febrile illness COPD with exacerbation Fluid overload with suspected Heart Failure Mood Disorder with paranoia and disability. Tobacco user. Chronic pain Plan: 03/10/17 O2 per NC, Titrate to effect. Scheduled Duoneb, Pulmicort. Schedule Solumedrol. Add Ceftriaxone/Azithro to cover possible infiltrate. Assess Resp Viral PCR. She has had Flu shot this year. Will start IV diuresis, as she seems quite fluid overloaded. Supplemental KCL while on Lasix. Assess echo on Sunday. Add tele, continuous O2. Resume home meds for Mood and Pain. Will add PRN Nicoderm patch and Ativan due to risk for anxiety given mental illness. Repeat labs in AM for stability. Monitor AM glucose via lab draws. If elevated,will need to start accu checks. Add LMWH for prophylaxis. 03/11/17 -Check Echo Sunday for EF and PAP -Continue antibiotics, resp therapy, steroids 03/12/17 Continue antibiotics, steroids and breathing treatments. Appreciate pulm's input. GI consult re: Hep C on OP basis. 03/13/17 Given her complaint of chronic fatigue and her pulmonary status, question if she would benefit from BiPAP. Will discuss further with pulmonology. She is not having any wheezing in her oxygen levels are back to her baseline, will decrease steroids to 20 mg daily and continue antibiotics. Suspicion she could have some CHF given her elevated BNP and her edema. Echo is still pending. She has been declining some of her Lasix doses she doesn't like to take them near bedtime. Will change the dosing to 6 AM and 2 PM. Give her an extra 20 mg in the morning. She is still having some hyperglycemia, will change to carbohydrate controlled diet. Again encouraged tobacco cessation, but she is not willing at this time. 03/15/17- Plan Appreciate cardiac consultation by Dr. Cooper. Continue lisinopril, spironolactone, and furosemide. Planning for cardiac cath in the near future as per Dr Cooper Continue to work on COPD with Nebulizers Monitor Accu-Cheks, No further episodes of hypoglycemia Continue Cefepime and Cipro for antimicrobial coverage of HCAP Continue to increase activity as tolerated. Recheck CBC and BMP tomorrow to follow Hypernatremia and blood counts 03/16/17 ABG assessed d/t somnolence - hypercarbia (CO2 of 71) with normal pH; hypoxemia (O2 60). Pt refusing BiPAP. D/W RN - will increase O2 to 4L. Encourage increased activity. Bicarb on BMP increased to 42. Weight is down about 6 kg; Dr. Espinoza dc'd IV Lasix for the rest of the day - repeat BMP in am; may need to resume diuretics. HCAP - improving; day #7 of Cipro + cefepime. 5-day vanco course completed. CXR shows improving RLL infiltrate with persistent LLL infiltrate. Dr. Cooper is planning on heart cath on 03/19. Cont JOSEPH-I, spironolactone, BB, and statin. Diamox initiated. D/W dietary - as they were discussing salt intake and the fact that smoking masks taste, pt reported that she's interested in quitting smoking. Tobacco cessation ordered. Cont nebs and prednisone for COPD. Consider pulm consult, at least in outpatient setting. 03/17/17 Weight is down from yesterda (111.3 to 110.9 kg) despite holding Lasix. She has one more dose of Diamox to be given this afternoon. CO2 improved from 42 yesterday to 35 today. Will discuss re-introduction of Lasix with attending. HCAP - clinically improving. Vanco dc'd after 5 day course; cefepime dc'd after 7 day course. Today is day #8 of cipro - likely can dc this soon. COPD - decrease prednisone to 10 mg daily Continue to encourage activity/ambulation though pt has been reluctant. <Jay Maurer D - Last Filed: 03/17/17 19:26> - Date 03/17/17 Objective Vital signs: Temperature 98.2 F 03/17/17 15:36 Pulse Rate 88 03/17/17 17:10 Respiratory Rate 20 03/17/17 15:36 Blood Pressure 115/62 03/17/17 15:36 Pulse Oximetry 93 03/17/17 15:36 Height/Weight/BMI: Weight 110.9 kg Results - Labs CBC & Chem 7: 03/17/17 05:36 03/17/17 05:36 - ABG Interpretation ABG results: 03/16/17 13:08 ABG pH 7.420 ABG pCO2 71 H* ABG pO2 60 L ABG HCO3 46 H ABG Total CO2 48.3 H ABG O2 Saturation 91.0 L ABG Base Excess 18.0 H Assessment and Plan (1) Acute exacerbation of chronic obstructive airways disease Current visit: Yes Status: Acute (2) Acute febrile illness Current visit: Yes Status: Acute Assessment and Plan: IMPRESSION Acute on chronic hypoxic/hypercapnic respiratory failure. Baseline 5L O2. Healthcare associated pneumonia - improving Systolic heart failure - new diagnosis, likely ischemic cardiomyopathy Question HUBERT versus hypercapnic failure COPD exacerbation - moderately severe to severe COPD Hyperglycemia - A1c of 5.9% Hepatitis C GERD BAD with paranoia Tobaccoism Mild elevation of TSH - free T4 normal Morbid obesity with BMI 42.0 Have independently interviewed and examined pt. Chart reviewed. Case discussed with my [employer]. Care plan developed with my supervision; agree with above. Doing okay this evening. Breathing feels okay-minimal cough and congestion. No pain with breathing. Eating well-no nausea or ab pain. Stools stable. Lungs: decreased, faint wheeze. No distress CV: regular AB: soft nt/nd MSE: awake alert Plan: Continue with supportive cardiac care-anticipate cath in near future. Prednisone decreased to 10mg. Continue respiratory treatments. Encourage activities and ambulation. Continue with Cipro for another 2 days. Monitor lab. Hospital Course Summary Disclaimer: The visit summary below is not to be considered part of the above Progress Note.
[2017-03-17] MEDS: LISINOPRIL 5 MG TABLET PO SCH (21:33)
[2017-03-17] MEDS: OLANZapine 10 MG TABLET PO SCH (21:34)
[2017-03-17] MEDS: ATORVASTATIN 40 MG TABLET PO SCH (21:34)
[2017-03-17] MEDS: GABAPENTIN 300 MG CAPSULE PO SCH (21:34)
[2017-03-17] MEDS: SENNA + DOCUSATE TABLET PO SCH (21:34)
[2017-03-17] MEDS: LIDOCAINE PATCH REMOVAL TOP SCH (21:35)
--- NOTE | 2017-03-17 21:56 | Cardiology Progress Note ---
Subjective Principal diagnosis: COPD exacerbation Interval history: Dayanara Dumont has been up to the bathroom today denies shortness of breath chest pain pressure or dizziness she noticed that the leg swelling is better no other complaints. She feels ready for the heart catheter on Sunday. She is still diuresing well her weight is down her serum bicarbonate and came Down nicely with Diamox. Telemetry shows sinus rhythm Labs looking good Exam Vital signs: Temperature 98.2 F 03/17/17 15:36 Pulse Rate 88 03/17/17 17:10 Respiratory Rate 18 03/17/17 20:49 Blood Pressure 115/62 03/17/17 15:36 Pulse Oximetry 96 03/17/17 20:49 - Constitutional no acute distress - Routine HEENT Exam Head: Present: normocephalic, atraumatic Eye: Present: EOMI, PERRL ENT: Present: mucous membranes moist - Routine Neck Exam Present: normal carotid upstroke. Absent: JVD, carotid bruit, lymphadenopathy, thyromegaly - Routine Respiratory Exam Present: CTA bilaterally - Routine Cardiovascular Exam Present: RRR, murmur (2/6 systolic) - Routine Abdominal Exam Present: soft, normoactive bowel sounds, non distended, non tender. Absent: organomegaly - Routine Extremities Exam Present: edema (minimal), normal capillary refill. Absent: cyanosis, clubbing - Routine Skin Exam Present: intact. Absent: cyanosis - Routine Neurological Exam Present: alert, oriented X3, CN II-XII intact, moving all extremities, hearing grossly intact, normal speech. Absent: motor deficit, altered mental status, hemineglect, facial asymmetry - Routine Psychiatric Exam Present: normal affect, cooperative Results 03/17/17 05:36 03/17/17 05:36 Cardiac Enzymes 03/17/17 Range/Units 05:36 AST 15 (14-36) U/L CBC 03/17/17 Range/Units 05:36 WBC 7.6 (4.5-11.0) T/MM3 RBC 5.06 (4.00-5.20) M/MM3 Hgb 16.0 (12-16) GM/DL Hct 51.2 H (36-46) % Plt Count 158 (130-400) T/MM3 Neut # (Auto) 3.2 (1.8-7.7) T/MM3 Lymph # (Auto) 3.4 (1-4.8) T/MM3 [place] # (Auto) 0.8 (0-0.8) T/MM3 Eos # (Auto) 0.2 (0-0.5) T/MM3 Baso # (Auto) 0.0 (0-0.2) T/MM3 Comprehensive Metabolic Panel 03/17/17 Range/Units 05:36 Sodium 144 (134-144) MEQ/L Potassium 4.0 (3.6-5) MEQ/L Chloride 103 D (98-107) MEQ/L Carbon Dioxide 35 H (22-30) MEQ/L BUN 26.0 H (7-17) MG/DL Creatinine 0.8 (0.7-1.2) MG/DL Glucose 77 (65-110) MG/DL Calcium 9.3 (8.4-10.2) MG/DL AST 15 (14-36) U/L ALT 35 (9-52) U/L Alkaline Phosphatase 51 (38-126) U/L Total Protein 6.7 (6.3-8.2) G/DL Albumin 3.3 L (3.5-5.0) G/DL Intake and Output 03/17/17 03/17/17 03/17/17 06:59 14:59 22:59 Intake Total 250 / 250 635 / 635 300 / 300 Output Total 1200 / 1200 1400 / 1400 800 / 800 Balance -950 / -950 -765 / -765 -500 / -500 Intake: Oral 250 / 250 635 / 635 300 / 300 Output: Urine 1200 / 1200 1400 / 1400 800 / 800 Other: Urine Appearance Clear Cloudy Cloudy Urine Color Dark Yellow Straw Bright Yellow Urine Odor Normal Stool Consistency Formed Size of Bowel Movement Large # Voids 1 Weight 110.9 kg Patient Weight 03/18/17 06:59 Weight 110.9 kg - EKG Interpretation EKG: sinus rhythm Assessment and Plan - Assessment and Plan (1) Systolic congestive heart failure Current visit: Yes Status: Acute Continue present regimen Heart catheter for Sunday morning Precath orders in place I'll be out on Sunday Emergent cardiology coverage in [place] If serum bicarbonate hits 40, she then might require a few doses of Diamox Discussed with hospitalist Thank you Hospital Course Summary Disclaimer: The visit summary below is not to be considered part of the above Progress Note. Hospital Course: 03/10/17 15:29 Impression: Acute on Chronic Respiratory Failure Hypoxemia Acute febrile illness COPD with exacerbation Fluid overload with suspected Heart Failure Mood Disorder with paranoia and disability. Tobacco user. Chronic pain Plan: 03/10/17 O2 per [place], Titrate to effect. Scheduled Duoneb, Pulmicort. Schedule Solumedrol. Add Ceftriaxone/Azithro to cover possible infiltrate. Assess Resp Viral PCR. She has had Flu shot this year. Will start IV diuresis, as she seems quite fluid overloaded. Supplemental KCL while on Lasix. Assess echo on Sunday. Add tele, continuous O2. Resume home meds for Mood and Pain. Will add PRN Nicoderm patch and Ativan due to risk for anxiety given mental illness. Repeat labs in AM for stability. Monitor AM glucose via lab draws. If elevated,will need to start accu checks. Add LMWH for prophylaxis. 03/11/17 -Check Echo Sunday for EF and PAP -Continue antibiotics, resp therapy, steroids 03/12/17 Continue antibiotics, steroids and breathing treatments. Appreciate pulm's input. GI consult re: Hep C on OP basis. 03/13/17 Given her complaint of chronic fatigue and her pulmonary status, question if she would benefit from BiPAP. Will discuss further with pulmonology. She is not having any wheezing in her oxygen levels are back to her baseline, will decrease steroids to 20 mg daily and continue antibiotics. Suspicion she could have some CHF given her elevated BNP and her edema. Echo is still pending. She has been declining some of her Lasix doses she doesn't like to take them near bedtime. Will change the dosing to 6 AM and 2 PM. Give her an extra 20 mg in the morning. She is still having some hyperglycemia, will change to carbohydrate controlled diet. Again encouraged tobacco cessation, but she is not willing at this time. 03/15/17- Plan Appreciate cardiac consultation by Dr. Cooper. Continue lisinopril, spironolactone, and furosemide. Planning for cardiac cath in the near future as per Dr Cooper Continue to work on COPD with Nebulizers Monitor Accu-Cheks, No further episodes of hypoglycemia Continue Cefepime and Cipro for antimicrobial coverage of HCAP Continue to increase activity as tolerated. Recheck CBC and BMP tomorrow to follow Hypernatremia and blood counts 03/16/17 ABG assessed d/t somnolence - hypercarbia (CO2 of 71) with normal pH; hypoxemia (O2 60). Pt refusing BiPAP. D/W RN - will increase O2 to 4L. Encourage increased activity. Bicarb on BMP increased to 42. Weight is down about 6 kg; Dr. Espinoza dc'd IV Lasix for the rest of the day - repeat BMP in am; may need to resume diuretics. HCAP - improving; day #7 of Cipro + cefepime. 5-day vanco course completed. CXR shows improving RLL infiltrate with persistent LLL infiltrate. Dr. Cooper is planning on heart cath on 03/19. Cont JOSEPH-I, spironolactone, BB, and statin. Diamox initiated. D/W dietary - as they were discussing salt intake and the fact that smoking masks taste, pt reported that she's interested in quitting smoking. Tobacco cessation ordered. Cont nebs and prednisone for COPD. Consider pulm consult, at least in outpatient setting. 03/17/17 Weight is down from yesterda (111.3 to 110.9 kg) despite holding Lasix. She has one more dose of Diamox to be given this afternoon. CO2 improved from 42 yesterday to 35 today. Will discuss re-introduction of Lasix with attending. HCAP - clinically improving. Vanco dc'd after 5 day course; cefepime dc'd after 7 day course. Today is day #8 of cipro - likely can dc this soon. COPD - decrease prednisone to 10 mg daily Continue to encourage activity/ambulation though pt has been reluctant.
--- NOTE | 2017-03-17 22:02 | Cardiology Progress Note ---
Subjective Principal diagnosis: COPD exacerbation Interval history: Late entry patient seen 03/16/2017 around 1345 Patient has no new complaints denies shortness of breath chest pain or dizziness. She is laying in bed. Telemetry shows sinus rhythm Labs looking good Exam Vital signs: Vital signs weight and I&O's 03/16/2017 reviewed in detail and all stable Weight is gone down with diuresis see nurse's notes - Constitutional no acute distress - Routine HEENT Exam Head: Present: normocephalic, atraumatic Eye: Present: EOMI, PERRL (Hospital secondary TO primary care had a high-grade N0) ENT: Present: mucous membranes moist - Routine Neck Exam Present: JVD, normal carotid upstroke. Absent: carotid bruit, lymphadenopathy, thyromegaly - Routine Respiratory Exam Present: wheezes (few expiratory wheezes in the bases). Absent: rales - Routine Cardiovascular Exam Present: RRR, murmur (2/6 SHAWNA), JVD (mild). Absent: bradycardia, tachycardia - Routine Abdominal Exam Present: soft, normoactive bowel sounds, non distended, non tender. Absent: organomegaly, mass - Routine Extremities Exam Present: edema (mild pitting edema bilateral ankles), pulses intact, normal capillary refill. Absent: cyanosis, clubbing - Routine Skin Exam Present: intact. Absent: cyanosis, erythema - Routine Neurological Exam Present: alert, oriented X3, CN II-XII intact. Absent: motor deficit Results 03/17/17 05:36 03/17/17 05:36 CBC and BMP results 03/16/2027 noted electrolytes okay but bicarbonate up to 42 ABG noted Telemetry shows normal sinus rhythm CLAUDE's and weight reviewed her weight is down with diuresis Assessment and Plan - Assessment and Plan (1) Systolic congestive heart failure Current visit: Yes Status: Acute Increase metoprolol to 25 mg daily for CHF Add Diamox to combat contraction metabolic alkalosis Basic metabolic profile daily to monitor electrolytes BUN and creatinine and serum bicarbonate Precath orders for Sunday Hospital Course Summary Disclaimer: The visit summary below is not to be considered part of the above Progress Note. Hospital Course: 03/10/17 15:29 Impression: Acute on Chronic Respiratory Failure Hypoxemia Acute febrile illness COPD with exacerbation Fluid overload with suspected Heart Failure Mood Disorder with paranoia and disability. Tobacco user. Chronic pain Plan: 03/10/17 O2 per [place], Titrate to effect. Scheduled Duoneb, Pulmicort. Schedule Solumedrol. Add Ceftriaxone/Azithro to cover possible infiltrate. Assess Resp Viral PCR. She has had Flu shot this year. Will start IV diuresis, as she seems quite fluid overloaded. Supplemental KCL while on Lasix. Assess echo on Sunday. Add tele, continuous O2. Resume home meds for Mood and Pain. Will add PRN Nicoderm patch and Ativan due to risk for anxiety given mental illness. Repeat labs in AM for stability. Monitor AM glucose via lab draws. If elevated,will need to start accu checks. Add LMWH for prophylaxis. 03/11/17 -Check Echo Sunday for EF and PAP -Continue antibiotics, resp therapy, steroids 03/12/17 Continue antibiotics, steroids and breathing treatments. Appreciate pulm's input. GI consult re: Hep C on OP basis. 03/13/17 Given her complaint of chronic fatigue and her pulmonary status, question if she would benefit from BiPAP. Will discuss further with pulmonology. She is not having any wheezing in her oxygen levels are back to her baseline, will decrease steroids to 20 mg daily and continue antibiotics. Suspicion she could have some CHF given her elevated BNP and her edema. Echo is still pending. She has been declining some of her Lasix doses she doesn't like to take them near bedtime. Will change the dosing to 6 AM and 2 PM. Give her an extra 20 mg in the morning. She is still having some hyperglycemia, will change to carbohydrate controlled diet. Again encouraged tobacco cessation, but she is not willing at this time. 03/15/17- Plan Appreciate cardiac consultation by Dr. Cooper. Continue lisinopril, spironolactone, and furosemide. Planning for cardiac cath in the near future as per Dr Cooper Continue to work on COPD with Nebulizers Monitor Accu-Cheks, No further episodes of hypoglycemia Continue Cefepime and Cipro for antimicrobial coverage of HCAP Continue to increase activity as tolerated. Recheck CBC and BMP tomorrow to follow Hypernatremia and blood counts 03/16/17 ABG assessed d/t somnolence - hypercarbia (CO2 of 71) with normal pH; hypoxemia (O2 60). Pt refusing BiPAP. D/W RN - will increase O2 to 4L. Encourage increased activity. Bicarb on BMP increased to 42. Weight is down about 6 kg; Dr. Espinoza dc'd IV Lasix for the rest of the day - repeat BMP in am; may need to resume diuretics. HCAP - improving; day #7 of Cipro + cefepime. 5-day vanco course completed. CXR shows improving RLL infiltrate with persistent LLL infiltrate. Dr. Cooper is planning on heart cath on 03/19. Cont JOSEPH-I, spironolactone, BB, and statin. Diamox initiated. D/W dietary - as they were discussing salt intake and the fact that smoking masks taste, pt reported that she's interested in quitting smoking. Tobacco cessation ordered. Cont nebs and prednisone for COPD. Consider pulm consult, at least in outpatient setting. 03/17/17 Weight is down from yesterda (111.3 to 110.9 kg) despite holding Lasix. She has one more dose of Diamox to be given this afternoon. CO2 improved from 42 yesterday to 35 today. Will discuss re-introduction of Lasix with attending. HCAP - clinically improving. Vanco dc'd after 5 day course; cefepime dc'd after 7 day course. Today is day #8 of cipro - likely can dc this soon. COPD - decrease prednisone to 10 mg daily Continue to encourage activity/ambulation though pt has been reluctant.
[2017-03-18] MEDS: SALINE FLUSH 10ml SYRINGE IVF PRN (06:24)
[2017-03-18] MEDS: OMEPRAZOLE 20 MG CAPSULE PO SCH (06:24)
[2017-03-18] MEDS: ALBUTEROL/IPRATROPIUM 2.5mg-0.5mg/3ml NEB AEROSOL SCH ×4 (07:49→18:15)
[2017-03-18] MEDS: BUDESONIDE INH.SOLN 0.5mg/2ml NEB AEROSOL SCH ×2 (07:49→18:15)
[2017-03-18] MEDS: SENNA + DOCUSATE TABLET PO SCH ×2 (11:53→20:15)
[2017-03-18] MEDS: ASPIRIN 81 MG CHEWABLE TABLET PO SCH (11:53)
[2017-03-18] MEDS: DIVALPROEX 250 MG TABLET PO SCH ×2 (11:53→20:14)
[2017-03-18] MEDS: GABAPENTIN 600 MG TABLET PO SCH ×2 (11:54→17:07)
[2017-03-18] MEDS: PredniSONE 10 MG TABLET PO SCH (11:54)
[2017-03-18] MEDS: CIPROFLOXACIN 500 MG TABLET PO SCH ×2 (11:54→20:15)
[2017-03-18] MEDS: SPIRONOLACTONE 25 MG TABLET PO SCH (11:54)
[2017-03-18] MEDS: FLUTICASONE NASAL SPRAY 50mcg EA NOSTRIL SCH (11:55)
[2017-03-18] MEDS: ENOXAPARIN 40 MG/0.4 ML INJECTION SQ SCH (11:55)
[2017-03-18] MEDS: LIDOCAINE 5% PATCH TOP SCH (11:56)
[2017-03-18] MEDS: POLYETHYL GLYCOL 3350 17gm PACKET PO SCH (11:57)
--- NOTE | 2017-03-18 16:14 | Progress Note ---
- Date 03/18/17 Subjective: F/U: Acute on chronic hypoxic/hypercapnic respiratory failure, Healthcare associated pneumonia, Systolic heart failure Doing okay. Notes cough and congestion-not mobilizing sputum. Breathing not feeling excessively short; not feeling like she has to work too hard to breathing. Eating well. No nausea or ab pain. Bowels stable. Not up and moving much. Objective Vital signs: Temperature 97.9 F 03/18/17 08:18 Pulse Rate 80 03/18/17 08:18 Respiratory Rate 16 03/18/17 14:57 Blood Pressure 120/69 03/18/17 08:18 Pulse Oximetry 93 03/18/17 14:57 Height/Weight/BMI: Weight 108.4 kg - Constitutional Present: well nourished, well developed, morbidly obese. Absent: agitated, somnolent, obtunded - Routine HEENT Exam Head: Present: normocephalic, atraumatic Eye: Present: EOMI, PERRL ENT: Present: mucous membranes moist - Routine Respiratory Exam Present: decreased breath sounds, distant breath sounds, diminished air movement. Absent: respiratory distress, rhonchi, wheezes - Routine Cardiovascular Exam Present: RRR, no murmur - Routine Abdominal Exam Present: soft, normoactive bowel sounds, non distended, non tender - Routine Extremities Exam Present: edema (+2 BLE ). Absent: cyanosis, clubbing - Routine Musculoskeletal Exam Musculoskeletal: Present: no clubbing or cyanosis, normal strength - Routine Skin Exam Present: dry, warm - Routine Neurological Exam Present: alert, CN II-XII intact, moving all extremities, vision grossly intact , hearing grossly intact. Absent: motor deficit - Routine Psychiatric Exam Present: normal affect, cooperative. Absent: anxious, agitated, paranoid Results - Labs CBC & Chem 7: 03/17/17 05:36 03/18/17 04:34 Assessment and Plan (1) Acute exacerbation of chronic obstructive airways disease Current visit: Yes Status: Acute (2) Acute febrile illness Current visit: Yes Status: Acute Assessment and Plan: IMPRESSION Acute on chronic hypoxic/hypercapnic respiratory failure. Baseline 5L O2. Healthcare associated pneumonia - improving Systolic heart failure - new diagnosis, likely ischemic cardiomyopathy Question HUBERT versus hypercapnic failure COPD exacerbation - moderately severe to severe COPD Hyperglycemia - A1c of 5.9% Hepatitis C GERD BAD with paranoia Tobaccoism Mild elevation of TSH - free T4 normal Morbid obesity with BMI 42.0 Plan Urine output exceeding intake, weight trending downwards. CO2 decreased to 31. Will keep Lasix on hold for now. Continue with Cipro (Day #9) - possible stop after tomorrows last dose. Continue Neb treatments. Encourage use of IS to help gas exchange. Patient reluctant for BiPAP. Encourage activities and movement-patient reluctant to be up and ambulatory. Blood sugars much improved with decreased dose of steroids. Today is first day of 10mg Prednisone. Blood pressure, HR, and electrolytes/creatinine stable for current CV medications. Anticipate cardiac cath tomorrow. Will repeat BMP and Mg in am due to medications. Check CBC in am due to resolving pneumonia. Time spent with patient care 25 minutes. DVT Prophylaxis: Lovenox Resuscitation Status: Full Code - Time spent with patient Time with patient PN: 25 minutes Hospital Course Summary Disclaimer: The visit summary below is not to be considered part of the above Progress Note. Hospital Course: 03/10/17 Admission Impression: Acute on Chronic Respiratory Failure Hypoxemia Acute febrile illness COPD with exacerbation Fluid overload with suspected Heart Failure Mood Disorder with paranoia and disability Tobacco user Chronic pain Plan: 03/10/17 O2 per [place], Titrate to effect. Scheduled DuoNeb, Pulmicort. Schedule Solu-Medrol. Add Ceftriaxone/Azithromycin to cover possible infiltrate. Assess Resp Viral PCR. She has had Flu shot this year. Will start IV diuresis, as she seems quite fluid overloaded. Supplemental KCL while on Lasix. Assess echo on Sunday. Add tele, continuous O2. Resume home medications for Mood and Pain. Will add PRN NicoDerm patch and Ativan due to risk for anxiety given mental illness. Repeat labs in AM for stability. Monitor AM glucose via lab draws. If elevated,will need to start accu checks. Add Lovenox for DVT prophylaxis. 03/11/17 -Check Echo Sunday for EF and PAP -Continue antibiotics, respiratory therapy, steroids 03/12/17 Continue antibiotics, steroids and breathing treatments. Consult placed to Dr White for pulmonary evaluation; appreciate his input. GI consult re: Hep C on OP basis. 03/13/17 Given her complaint of chronic fatigue and her pulmonary status, question if she would benefit from BiPAP. Will discuss further with pulmonology. She is not having any wheezing in her oxygen levels are back to her baseline, will decrease steroids to 20 mg daily and continue antibiotics. Suspicion she could have some CHF given her elevated BNP and her edema. Echo is still pending. She has been declining some of her Lasix doses she doesn't like to take them near bedtime. Will change the dosing to 6 AM and 2 PM. Give her an extra 20 mg in the morning. She is still having some hyperglycemia, will change to carbohydrate controlled diet. Again encouraged tobacco cessation, but she is not willing at this time. 03/14/17 Dr. Cooper was consulted regarding the patient's newly diagnosed systolic heart failure. His help is greatly appreciated. He will start her on lisinopril, spironolactone, and continue furosemide. Considering beta kat. Potassium is discontinued. She will need a heart catheterization when respiratory status has improved. Continue steroids and breathing treatments for COPD exacerbation. Repeat lab in the morning, may need to adjust Lasix. Continue to monitor Accu-Cheks. Sliding scale insulin was discontinued because of hypoglycemia. She will be started on a trial of BiPAP tonight. We'll see if that will help with her fatigue. Start low-sodium diet. Continue to increase activity as tolerated. 03/15/17 Appreciate cardiac consultation by Dr. Cooper. Continue lisinopril, spironolactone, and furosemide. Planning for cardiac cath in the near future as per Dr Cooper. Continue to work on COPD with Nebulizers. Monitor Accu-Cheks, No further episodes of hypoglycemia. Continue Cefepime and Cipro for antimicrobial coverage of HCAP. Continue to increase activity as tolerated. Recheck CBC and BMP tomorrow to follow Hypernatremia and blood counts. 03/16/17 ABG assessed d/t somnolence - hypercarbia (CO2 of 71) with normal pH; hypoxemia (O2 60). Pt refusing BiPAP. D/W RN - will increase O2 to 4L. Encourage increased activity. Bicarb on BMP increased to 42. Weight is down about 6 kg; Dr. Espinoza dc'd IV Lasix for the rest of the day - repeat BMP in am; may need to resume diuretics. HCAP - improving; day #7 of Cipro + cefepime. 5-day vanco course completed. CXR shows improving RLL infiltrate with persistent LLL infiltrate. Dr. Cooper is planning on heart cath on 03/19. Cont JOSEPH-I, spironolactone, BB, and statin. Diamox initiated. D/W dietary - as they were discussing salt intake and the fact that smoking masks taste, pt reported that she's interested in quitting smoking. Tobacco cessation ordered. Cont nebs and prednisone for COPD. 03/17/17 Weight is down from yesterda (111.3 to 110.9 kg) despite holding Lasix. She has one more dose of Diamox to be given this afternoon. CO2 improved from 42 yesterday to 35 today. Will discuss re-introduction of Lasix with attending. HCAP - clinically improving. Vanco dc'd after 5 day course; cefepime dc'd after 7 day course. Today is day #8 of cipro - likely can dc this soon. COPD - decrease prednisone to 10 mg daily Continue to encourage activity/ambulation though pt has been reluctant. 03/18/17 Urine output exceeding intake, weight trending downwards. CO2 decreased to 31. Will keep Lasix on hold for now. Continue with Cipro (Day #9) - possible stop after tomorrows last dose. Continue Neb treatments. Encourage use of IS to help gas exchange. Patient reluctant for BiPAP. Encourage activities and movement-patient reluctant to be up and ambulatory. Blood sugars much improved with decreased dose of steroids. Today is first day of 10mg Prednisone. Blood pressure, HR, and electrolytes/creatinine stable for current CV medications. Anticipate cardiac cath tomorrow.
[2017-03-18] MEDS: LISINOPRIL 5 MG TABLET PO SCH (20:15)
[2017-03-18] MEDS: GABAPENTIN 300 MG CAPSULE PO SCH (20:15)
[2017-03-18] MEDS: ATORVASTATIN 40 MG TABLET PO SCH (20:15)
[2017-03-18] MEDS: OLANZapine 10 MG TABLET PO SCH (20:15)
[2017-03-18] MEDS: TRAMADOL 50 MG TABLET PO PRN (20:31)
[2017-03-18] MEDS: LORazepam 0.5 MG TABLET PO PRN (20:32)
[2017-03-18] MEDS: LIDOCAINE PATCH REMOVAL TOP SCH (20:32)
[2017-03-19] MEDS: OMEPRAZOLE 20 MG CAPSULE PO SCH (05:35)
[2017-03-19] MEDS: ALBUTEROL/IPRATROPIUM 2.5mg-0.5mg/3ml NEB AEROSOL SCH ×4 (07:37→18:58)
[2017-03-19] MEDS: BUDESONIDE INH.SOLN 0.5mg/2ml NEB AEROSOL SCH ×2 (07:37→18:58)
[2017-03-19] MEDS: CIPROFLOXACIN 500 MG TABLET PO SCH ×2 (09:36→22:02)
[2017-03-19] MEDS: GABAPENTIN 600 MG TABLET PO SCH ×2 (09:36→15:20)
[2017-03-19] MEDS: DIVALPROEX 250 MG TABLET PO SCH ×2 (09:36→22:01)
[2017-03-19] MEDS: PredniSONE 10 MG TABLET PO SCH (09:36)
[2017-03-19] MEDS: ASPIRIN 81 MG CHEWABLE TABLET PO SCH (09:36)
[2017-03-19] MEDS: SPIRONOLACTONE 25 MG TABLET PO SCH (09:37)
[2017-03-19] MEDS: POLYETHYL GLYCOL 3350 17gm PACKET PO SCH (09:37)
[2017-03-19] MEDS: SENNA + DOCUSATE TABLET PO SCH ×2 (09:37→22:00)
[2017-03-19] MEDS: ENOXAPARIN 40 MG/0.4 ML INJECTION SQ SCH (09:38)
--- NOTE | 2017-03-19 10:03 | Pulmonology Progress Note ---
Subjective Principal diagnosis: COPD exacerbation Interval history: Pt is currently in bed resting, wakes to voice. States no SOB with ambulation, minimal cough and sputum noted. Not using the bipap as she feels it it is taking away her breath. Exam Vital signs: Temperature 98.3 F 03/19/17 07:00 Pulse Rate 79 03/19/17 07:00 Respiratory Rate 16 03/19/17 07:38 Blood Pressure 119/75 03/19/17 07:00 Pulse Oximetry 94 03/19/17 07:38 - Constitutional no acute distress, morbidly obese - Routine HEENT Exam Head: Present: normocephalic, atraumatic Eye: Present: EOMI, PERRL - Routine Neck Exam Present: supple, full ROM - Routine Respiratory Exam Present: decreased breath sounds, wheezes - Routine Cardiovascular Exam Present: RRR, no murmur - Routine Abdominal Exam Present: soft, normoactive bowel sounds - Routine Extremities Exam Present: edema, non tender, full ROM - Routine Back/Spine/Pelvis Exam Back/Spine: Present: full ROM - Routine Skin Exam Present: intact, dry - Routine Neurological Exam Present: alert, oriented X3, CN II-XII intact - Routine Psychiatric Exam Present: normal affect Assessment and Plan - Assessment and Plan Acute on Chronic Hypercapnic Hypoxic Respiratory Failure - Uses 5L O2 at nsg home, ? if just at night HCAP COPD exacerbation - likely mod severe to sever COPD Systolic Heart Failure Tobaccoism Plan: Pt currently on O2 at 4L per [place] and tolerating, sats 94%. Last ABG 03/16 7.4/71/ 60, likely cause of daytime sleepiness and fatigue. Patient is currently refusing to use the bipap any longer even with trying to make adjustments. She was instructed that without the bipap she has a high likelyhood of respiratory failure and even without the use of the bipap and patient states she understood her risks. Since she is adamantly refusing the bipap I will not order it for home. Still on BT's with pulmicort BID and a/a QID with prednisone 10mg daily, still with faint exp wheezing noted. S/P cefepime and currently on cipro for HCAP no CXR today, encourage IS and cough. Echo complete with systolic HF, will continue to follow. Pt refusing to stop smoking. - Time Spent With Patient Total time spent is greater than 50% in coordination of care (as documented) at patient's floor/unit and/or counseling patient: less than 15 minutes
[2017-03-19] MEDS ORDERED: LIDOCAINE 1% (10mg/ml) 30ml SDV INJ ONE (11:44)
[2017-03-19] MEDS ORDERED: HEPARIN 1,000 UNITS/500 ML PREMIX (*CVL ONLY*) IV ONE (11:44)
[2017-03-19] MEDS ORDERED: IOHEXOL 350mg/ml 200ml BOTTLE ONE (11:45)
[2017-03-19] MEDS ORDERED: Verapamil 5 MG/2 ML VIAL ONE (12:20)
[2017-03-19] MEDS ORDERED: NITROGLYCERIN 50MG INJECTION IV ONE (12:20)
[2017-03-19] MEDS ORDERED: FentaNYL 100 MCG/2 ML INJECTION ONE (12:20)
[2017-03-19] MEDS ORDERED: MIDAZOLAM 2mg/2ml INJECTION ONE (12:20)
[2017-03-19] MEDS ORDERED: HEPARIN 1,000unit/ml INJECTION 10ml ONE (12:21)
[2017-03-19] MEDS ORDERED: SALINE FLUSH 10ml SYRINGE ONE (12:38)
[2017-03-19] MEDS ORDERED: METOCLOPRAMIDE 10mg/2ml INJECTION IVP PRN ×2 (13:35→13:45)
[2017-03-19] MEDS ORDERED: ACETAMINOPHEN 325 MG TABLET PO PRN ×2 (13:35→13:45)
[2017-03-19] MEDS ORDERED: ONDANSETRON 4 MG/2 ML INJECTION IVP PRN ×2 (13:35→13:45)
[2017-03-19] MEDS ORDERED: ATROPINE 1 MG/ML INJECTION IVP PRN ×2 (13:35→13:45)
[2017-03-19] MEDS ORDERED: CLOPIDOGREL 75 MG TABLET PO ONE (13:35)
[2017-03-19] MEDS ORDERED: MORPHINE SULFATE 4mg INJECTION IVP PRN ×4 (13:35→13:45)
[2017-03-19] MEDS ORDERED: MAG-AL + SIM ORAL LIQUID 30ml PO PRN ×2 (13:35→13:45)
[2017-03-19] MEDS ORDERED: BISACODYL 10 MG SUPPOSITORY RECTALLY PRN ×2 (13:35→13:45)
[2017-03-19] MEDS ORDERED: NITROGLYCERIN 0.4 MG SUBLINGUAL TABLET SL PRN ×2 (13:35→13:45)
[2017-03-19] MEDS ORDERED: LORazepam 0.5 MG TABLET PO PRN ×2 (13:35→13:45)
[2017-03-19] MEDS ORDERED: HYDROCODONE/APAP 5mg/325mg TABLET PO PRN ×2 (13:35→13:45)
[2017-03-19] MEDS ORDERED: PROMETHAZINE 25 MG INJECTION IVP PRN ×2 (13:35→13:45)
[2017-03-19] MEDS ORDERED: Bisacodyl EC TAB 5 MG TABLET PO PRN ×2 (13:35→13:45)
[2017-03-19] MEDS ORDERED: HEPARIN DRIP 20,000 UNIT/500 ML BAG IV SCH (13:45)
[2017-03-19] MEDS: NS 1,000 ML IV SCH (14:09)
[2017-03-19] MEDS: FLUTICASONE NASAL SPRAY 50mcg EA NOSTRIL SCH ×2 (15:02→15:03)
[2017-03-19] MEDS: LIDOCAINE 5% PATCH TOP SCH (15:20)
--- NOTE | 2017-03-19 16:32 | Progress Note ---
- Date 03/19/17 Subjective: F/U: Acute on chronic hypoxic/hypercapnic respiratory failure, Healthcare associated pneumonia, Systolic heart failure Doing well this evening. Tolerated heart cath. No chest pain. Feels breathing okay-not much cough/congestion. No discomfort with breathing. Not having mouth pain or pain with swallowing. Eating well. No nausea or ab pain. Not up and moving much-feels tires. Urinating well. Objective Vital signs: Temperature 98.2 F 03/19/17 16:00 Pulse Rate 81 03/19/17 16:00 Respiratory Rate 14 03/19/17 16:00 Blood Pressure 167/69 H 03/19/17 16:00 Pulse Oximetry 97 03/19/17 16:00 Height/Weight/BMI: Weight 108 kg - Constitutional Present: well nourished, well developed, morbidly obese, cooperative. Absent: combative, agitated, somnolent - Routine HEENT Exam Head: Present: normocephalic, atraumatic Eye: Present: EOMI, PERRL ENT: Present: mucous membranes moist - Routine Respiratory Exam Present: decreased breath sounds, diminished air movement. Absent: respiratory distress, wheezes, crackles - Routine Cardiovascular Exam Present: RRR - Routine Abdominal Exam Present: soft, normoactive bowel sounds, non distended, non tender - Routine Extremities Exam Present: edema (+1 BLE ), pulses intact. Absent: cyanosis, clubbing - Routine Musculoskeletal Exam Musculoskeletal: Present: no clubbing or cyanosis, normal strength - Routine Skin Exam Present: dry, warm - Routine Neurological Exam Present: alert, CN II-XII intact, moving all extremities, vision grossly intact , hearing grossly intact, normal speech. Absent: motor deficit - Routine Psychiatric Exam Present: normal affect, normal thought process. Absent: anxious, agitated Results - Labs CBC & Chem 7: 03/19/17 03:56 03/19/17 03:56 Assessment and Plan (1) Acute exacerbation of chronic obstructive airways disease Current visit: Yes Status: Acute (2) Acute febrile illness Current visit: Yes Status: Acute Assessment and Plan: IMPRESSION Acute on chronic hypoxic/hypercapnic respiratory failure. Baseline 5L O2. Healthcare associated pneumonia - improving Systolic heart failure - new diagnosis, likely ischemic cardiomyopathy CAD - critical stenosis to RCA Question HUBERT versus hypercapnic failure COPD exacerbation - moderately severe to severe COPD Hyperglycemia - A1c of 5.9% Hepatitis C GERD BAD with paranoia Tobaccoism Mild elevation of TSH - free T4 normal Morbid obesity with BMI 42.0 Plan Moved to CCU post cath for close cardiac monitoring. Cath showing critical stenosis to RCA - stent placement planned tomorrow. Will d/c ciprofloxacin after today's last dose - course completed. Continue with Neb treatment and pulmonary toilet. Day #2 of Prednisone 10mg. Recheck BMP in am secondary to medication and IV contrast. Case discussed with CM and Dr Cooper. Time spent with patient care 25 minutes. DVT Prophylaxis: Lovenox Resuscitation Status: Full Code Hospital Course Summary Disclaimer: The visit summary below is not to be considered part of the above Progress Note. Hospital Course: 03/10/17 Admission Impression: Acute on Chronic Respiratory Failure Hypoxemia Acute febrile illness COPD with exacerbation Fluid overload with suspected Heart Failure Mood Disorder with paranoia and disability Tobacco user Chronic pain Plan: 03/10/17 O2 per NC, Titrate to effect. Scheduled DuoNeb, Pulmicort. Schedule Solu-Medrol. Add Ceftriaxone/Azithromycin to cover possible infiltrate. Assess Resp Viral PCR. She has had Flu shot this year. Will start IV diuresis, as she seems quite fluid overloaded. Supplemental KCL while on Lasix. Assess echo on Sunday. Add tele, continuous O2. Resume home medications for Mood and Pain. Will add PRN NicoDerm patch and Ativan due to risk for anxiety given mental illness. Repeat labs in AM for stability. Monitor AM glucose via lab draws. If elevated,will need to start accu checks. Add Lovenox for DVT prophylaxis. 03/11/17 -Check Echo Sunday for EF and PAP -Continue antibiotics, respiratory therapy, steroids 03/12/17 Continue antibiotics, steroids and breathing treatments. Consult placed to Dr White for pulmonary evaluation; appreciate his input. GI consult re: Hep C on OP basis. 03/13/17 Given her complaint of chronic fatigue and her pulmonary status, question if she would benefit from BiPAP. Will discuss further with pulmonology. She is not having any wheezing in her oxygen levels are back to her baseline, will decrease steroids to 20 mg daily and continue antibiotics. Suspicion she could have some CHF given her elevated BNP and her edema. Echo is still pending. She has been declining some of her Lasix doses she doesn't like to take them near bedtime. Will change the dosing to 6 AM and 2 PM. Give her an extra 20 mg in the morning. She is still having some hyperglycemia, will change to carbohydrate controlled diet. Again encouraged tobacco cessation, but she is not willing at this time. 03/14/17 Dr. Cooper was consulted regarding the patient's newly diagnosed systolic heart failure. His help is greatly appreciated. He will start her on lisinopril, spironolactone, and continue furosemide. Considering beta kat. Potassium is discontinued. She will need a heart catheterization when respiratory status has improved. Continue steroids and breathing treatments for COPD exacerbation. Repeat lab in the morning, may need to adjust Lasix. Continue to monitor Accu-Cheks. Sliding scale insulin was discontinued because of hypoglycemia. She will be started on a trial of BiPAP tonight. We'll see if that will help with her fatigue. Start low-sodium diet. Continue to increase activity as tolerated. 03/15/17 Appreciate cardiac consultation by Dr. Cooper. Continue lisinopril, spironolactone, and furosemide. Planning for cardiac cath in the near future as per Dr Cooper. Continue to work on COPD with Nebulizers. Monitor Accu-Cheks, No further episodes of hypoglycemia. Continue Cefepime and Cipro for antimicrobial coverage of HCAP. Continue to increase activity as tolerated. Recheck CBC and BMP tomorrow to follow Hypernatremia and blood counts. 03/16/17 ABG assessed d/t somnolence - hypercarbia (CO2 of 71) with normal pH; hypoxemia (O2 60). Pt refusing BiPAP. D/W RN - will increase O2 to 4L. Encourage increased activity. Bicarb on BMP increased to 42. Weight is down about 6 kg; Dr. Espinoza dc'd IV Lasix for the rest of the day - repeat BMP in am; may need to resume diuretics. HCAP - improving; day #7 of Cipro + cefepime. 5-day vanco course completed. CXR shows improving RLL infiltrate with persistent LLL infiltrate. Dr. Cooper is planning on heart cath on 03/19. Cont JOSEPH-I, spironolactone, BB, and statin. Diamox initiated. D/W dietary - as they were discussing salt intake and the fact that smoking masks taste, pt reported that she's interested in quitting smoking. Tobacco cessation ordered. Cont nebs and prednisone for COPD. 03/17/17 Weight is down from yesterda (111.3 to 110.9 kg) despite holding Lasix. She has one more dose of Diamox to be given this afternoon. CO2 improved from 42 yesterday to 35 today. Will discuss re-introduction of Lasix with attending. HCAP - clinically improving. Vanco dc'd after 5 day course; cefepime dc'd after 7 day course. Today is day #8 of cipro - likely can dc this soon. COPD - decrease prednisone to 10 mg daily Continue to encourage activity/ambulation though pt has been reluctant. 03/18/17 Urine output exceeding intake, weight trending downwards. CO2 decreased to 31. Will keep Lasix on hold for now. Continue with Cipro (Day #9) - possible stop after tomorrows last dose. Continue Neb treatments. Encourage use of IS to help gas exchange. Patient reluctant for BiPAP. Encourage activities and movement-patient reluctant to be up and ambulatory. Blood sugars much improved with decreased dose of steroids. Today is first day of 10mg Prednisone. Blood pressure, HR, and electrolytes/creatinine stable for current CV medications. Anticipate cardiac cath tomorrow. 03/19/17 Moved to CCU post cath for close cardiac monitoring. Cath showing critical stenosis to RCA - stent placement planned tomorrow. Will d/c ciprofloxacin after today's last dose - course completed. Continue with Neb treatment and pulmonary toilet. Day #2 of Prednisone 10mg. Recheck BMP in am secondary to medication and IV contrast.
[2017-03-19] MEDS: ATORVASTATIN 40 MG TABLET PO SCH (22:00)
[2017-03-19] MEDS: LISINOPRIL 5 MG TABLET PO SCH (22:01)
[2017-03-19] MEDS: OLANZapine 10 MG TABLET PO SCH (22:03)
[2017-03-19] MEDS: GABAPENTIN 300 MG CAPSULE PO SCH (22:03)
[2017-03-19] MEDS: LIDOCAINE PATCH REMOVAL TOP SCH (22:06)
[2017-03-20] MEDS: OMEPRAZOLE 20 MG CAPSULE PO SCH (06:46)
[2017-03-20] MEDS: ALBUTEROL/IPRATROPIUM 2.5mg-0.5mg/3ml NEB AEROSOL SCH ×4 (07:10→18:50)
[2017-03-20] MEDS: BUDESONIDE INH.SOLN 0.5mg/2ml NEB AEROSOL SCH ×2 (07:10→21:36)
[2017-03-20] MEDS ORDERED: HEPARIN 1,000 UNITS/500 ML PREMIX (*CVL ONLY*) IV ONE (07:37)
[2017-03-20] MEDS ORDERED: LIDOCAINE 1% (10mg/ml) 30ml SDV INJ ONE (07:38)
[2017-03-20] MEDS: ASPIRIN 81 MG CHEWABLE TABLET PO SCH (08:31)
[2017-03-20] MEDS: NS 1,000 ML IV SCH (10:20)
[2017-03-20 10:53] VITALS: TEMP 97.4
[2017-03-20] MEDS ORDERED: MIDAZOLAM 2mg/2ml INJECTION ONE (10:58)
[2017-03-20] MEDS ORDERED: FentaNYL 100 MCG/2 ML INJECTION ONE (10:58)
[2017-03-20] MEDS ORDERED: HEPARIN 1,000unit/ml INJECTION 10ml ONE (10:59)
[2017-03-20] MEDS ORDERED: NS 50 ML ONE (10:59)
[2017-03-20] MEDS ORDERED: BIVALIRUDIN 250 MG VIAL IV ONE (10:59)
[2017-03-20] MEDS ORDERED: Verapamil 5 MG/2 ML VIAL ONE (11:01)
[2017-03-20] MEDS ORDERED: NITROGLYCERIN 50MG INJECTION IV ONE (11:02)
--- NOTE | 2017-03-20 12:43 | Cardiology Report ---
DATE: 03/20/[address] Pravin Cooper 2. Dr. Jay Maurer DIAGNOSIS 1. Coronary artery disease. PROCEDURE PTCA and stenting of complex, subtotal, dominant mid RCA. METHODS Using Seldinger technique, the right femoral artery was accessed, and a 6 [place]ic sheath was placed within it. A 6 Green[place]ic AR1 guide was used for receiving operator images. Intravenous Angiomax was given. The patient already had been placed on oral Plavix. A BoomBoom Printstronic Intuition wire was advanced past the lesion site. A 2 mm balloon was used for predilatation. Then a 2.25 x 30 mm Medtronic MAKENZIE stent was deployed. There were excellent angiographic results. The sheath was then removed, a Mynx deployed, and the patient was returned to her room in stable condition. CORONARY ANGIOGRAMS Right coronary artery is dominant. The mid segment has a 99% stenosis. There is CHERELLE-2 flow of the distal vessel. Post PCI/stenting, the RCA has 0% residual stenosis. There is no intimal disruption. The distal vessel is of much larger caliber. There is again normal flow of the distal vessel. CONCLUSION 1. Successful PCI and stenting of dominant, subtotal mid RCA, using Medtronic drug-eluting stent. [facility]
[2017-03-20] MEDS ORDERED: ACETAMINOPHEN 325 MG TABLET PO PRN (13:13)
[2017-03-20] MEDS ORDERED: MORPHINE SULFATE 4mg INJECTION IVP PRN (13:18)
[2017-03-20] MEDS ORDERED: PROMETHAZINE 25 MG INJECTION IVP PRN (13:19)
[2017-03-20] MEDS ORDERED: HYDROCODONE/APAP 5mg/325mg TABLET PO PRN (13:19)
[2017-03-20] MEDS ORDERED: NITROGLYCERIN 0.4 MG SUBLINGUAL TABLET SL PRN (13:20)
[2017-03-20] MEDS: SALINE FLUSH 10ml SYRINGE IVF PRN (13:25)
[2017-03-20] MEDS ORDERED: NS 1,000 ML IV SCH (13:30)
[2017-03-20] MEDS ORDERED: CLOPIDOGREL 75 MG TABLET PO ONE (14:58)
--- NOTE | 2017-03-20 17:19 | Progress Note ---
- Date 03/20/17 Subjective: F/U: Acute on chronic hypoxic/hypercapnic respiratory failure, Healthcare associated pneumonia, Systolic heart failure Doing well this evening. Tolerated stent placement (happy that she has no recollection of the procedure). Breathing feel normal-not feeling more congested or SOA. No pain with breathing. No nausea or ab pain. Bowels feel stable. Objective Vital signs: Temperature 97.4 F 03/20/17 08:00 Pulse Rate 76 03/20/17 14:00 Respiratory Rate 27 H 03/20/17 15:20 Blood Pressure 119/61 03/20/17 14:00 Pulse Oximetry 96 03/20/17 15:20 Height/Weight/BMI: Weight 107.8 kg - Constitutional Present: well nourished, well developed, morbidly obese, cooperative. Absent: combative, agitated - Routine HEENT Exam Head: Present: normocephalic, atraumatic Eye: Present: EOMI, PERRL ENT: Present: mucous membranes moist - Routine Respiratory Exam Present: decreased breath sounds, diminished air movement. Absent: respiratory distress, wheezes, crackles - Routine Cardiovascular Exam Present: RRR, no murmur - Routine Abdominal Exam Present: soft, normoactive bowel sounds, non distended, non tender. Absent: guarding - Routine Extremities Exam Present: pulses intact. Absent: cyanosis, clubbing - Routine Musculoskeletal Exam Musculoskeletal: Present: no clubbing or cyanosis, normal strength - Routine Skin Exam Present: dry, warm - Routine Neurological Exam Present: alert, CN II-XII intact, vision grossly intact, hearing grossly intact , normal speech. Absent: motor deficit, altered mental status - Routine Psychiatric Exam Present: normal affect, cooperative. Absent: anxious, agitated, paranoid, manic Results - Labs CBC & Chem 7: 03/19/17 03:56 03/20/17 04:21 Assessment and Plan (1) Acute exacerbation of chronic obstructive airways disease Current visit: Yes Status: Acute (2) Acute febrile illness Current visit: Yes Status: Acute Assessment and Plan: IMPRESSION Acute on chronic hypoxic/hypercapnic respiratory failure. Baseline 5L O2. Healthcare associated pneumonia - improving Systolic heart failure - new diagnosis, likely ischemic cardiomyopathy CAD - critical stenosis to RCA Question HUBERT versus hypercapnic failure COPD exacerbation - moderately severe to severe COPD Hyperglycemia - A1c of 5.9% Hepatitis C GERD BAD with paranoia Tobaccoism Mild elevation of TSH - free T4 normal Morbid obesity with BMI 42.0 Plan Tolerated stent to RCA well. No chest pain. Creatinine stable this morning post cath yesterday. Breathing stable. White count stable off of antibiotics. Continue neb treatments. Encourage pt on IS and deep breathing. Discussed with nursing about using lowest flow possible to keep sats in low 90s. Prednisone 10md daily - Day #3. Recheck BMP in am secondary to medication and IV contrast. Case discussed with CM, CCU nursing and Dr Cooper. Time spent with patient care 25 minutes. DVT Prophylaxis: SCD's, Lovenox Resuscitation Status: Full Code - Time spent with patient Time with patient PN: 25 minutes Hospital Course Summary Disclaimer: The visit summary below is not to be considered part of the above Progress Note. Hospital Course: 03/10/17 Admission Impression: Acute on Chronic Respiratory Failure Hypoxemia Acute febrile illness COPD with exacerbation Fluid overload with suspected Heart Failure Mood Disorder with paranoia and disability Tobacco user Chronic pain Plan: 03/10/17 O2 per NC, Titrate to effect. Scheduled DuDidierb Pulmicort. Schedule Solu-Medrol. Add Ceftriaxone/Azithromycin to cover possible infiltrate. Assess Resp Viral PCR. She has had Flu shot this year. Will start IV diuresis, as she seems quite fluid overloaded. Supplemental KCL while on Lasix. Assess echo on Sunday. Add tele, continuous O2. Resume home medications for Mood and Pain. Will add PRN NicoDerm patch and Ativan due to risk for anxiety given mental illness. Repeat labs in AM for stability. Monitor AM glucose via lab draws. If elevated,will need to start accu checks. Add Lovenox for DVT prophylaxis. 03/11/17 -Check Echo Sunday for EF and PAP -Continue antibiotics, respiratory therapy, steroids 03/12/17 Continue antibiotics, steroids and breathing treatments. Consult placed to Dr White for pulmonary evaluation; appreciate his input. GI consult re: Hep C on OP basis. 03/13/17 Given her complaint of chronic fatigue and her pulmonary status, question if she would benefit from BiPAP. Will discuss further with pulmonology. She is not having any wheezing in her oxygen levels are back to her baseline, will decrease steroids to 20 mg daily and continue antibiotics. Suspicion she could have some CHF given her elevated BNP and her edema. Echo is still pending. She has been declining some of her Lasix doses she doesn't like to take them near bedtime. Will change the dosing to 6 AM and 2 PM. Give her an extra 20 mg in the morning. She is still having some hyperglycemia, will change to carbohydrate controlled diet. Again encouraged tobacco cessation, but she is not willing at this time. 03/14/17 Dr. Cooper was consulted regarding the patient's newly diagnosed systolic heart failure. His help is greatly appreciated. He will start her on lisinopril, spironolactone, and continue furosemide. Considering beta kat. Potassium is discontinued. She will need a heart catheterization when respiratory status has improved. Continue steroids and breathing treatments for COPD exacerbation. Repeat lab in the morning, may need to adjust Lasix. Continue to monitor Accu-Cheks. Sliding scale insulin was discontinued because of hypoglycemia. She will be started on a trial of BiPAP tonight. We'll see if that will help with her fatigue. Start low-sodium diet. Continue to increase activity as tolerated. 03/15/17 Appreciate cardiac consultation by Dr. Cooper. Continue lisinopril, spironolactone, and furosemide. Planning for cardiac cath in the near future as per Dr Cooper. Continue to work on COPD with Nebulizers. Monitor Accu-Cheks, No further episodes of hypoglycemia. Continue Cefepime and Cipro for antimicrobial coverage of HCAP. Continue to increase activity as tolerated. Recheck CBC and BMP tomorrow to follow Hypernatremia and blood counts. 03/16/17 ABG assessed d/t somnolence - hypercarbia (CO2 of 71) with normal pH; hypoxemia (O2 60). Pt refusing BiPAP. D/W RN - will increase O2 to 4L. Encourage increased activity. Bicarb on BMP increased to 42. Weight is down about 6 kg; Dr. Espinoza dc'd IV Lasix for the rest of the day - repeat BMP in am; may need to resume diuretics. HCAP - improving; day #7 of Cipro + cefepime. 5-day vanco course completed. CXR shows improving RLL infiltrate with persistent LLL infiltrate. Dr. Cooper is planning on heart cath on 03/19. Cont JOSEPH-I, spironolactone, BB, and statin. Diamox initiated. D/W dietary - as they were discussing salt intake and the fact that smoking masks taste, pt reported that she's interested in quitting smoking. Tobacco cessation ordered. Cont nebs and prednisone for COPD. 03/17/17 Weight is down from yesterda (111.3 to 110.9 kg) despite holding Lasix. She has one more dose of Diamox to be given this afternoon. CO2 improved from 42 yesterday to 35 today. Will discuss re-introduction of Lasix with attending. HCAP - clinically improving. Vanco dc'd after 5 day course; cefepime dc'd after 7 day course. Today is day #8 of cipro - likely can dc this soon. COPD - decrease prednisone to 10 mg daily Continue to encourage activity/ambulation though pt has been reluctant. 03/18/17 Urine output exceeding intake, weight trending downwards. CO2 decreased to 31. Will keep Lasix on hold for now. Continue with Cipro (Day #9) - possible stop after tomorrows last dose. Continue Neb treatments. Encourage use of IS to help gas exchange. Patient reluctant for BiPAP. Encourage activities and movement-patient reluctant to be up and ambulatory. Blood sugars much improved with decreased dose of steroids. Today is first day of 10mg Prednisone. Blood pressure, HR, and electrolytes/creatinine stable for current CV medications. Anticipate cardiac cath tomorrow. 03/19/17 Cath Moved to CCU post cath for close cardiac monitoring. Cath showing critical stenosis to RCA - stent placement planned tomorrow. Will d/c ciprofloxacin after today's last dose - course completed. Continue with Neb treatment and pulmonary toilet. Day #2 of Prednisone 10mg. Recheck BMP in am secondary to medication and IV contrast. 03/20/17 Stent to RCA Tolerated stent to RCA well. No chest pain. Creatinine stable this morning post cath yesterday. Breathing stable. White count stable off of antibiotics. Continue neb treatments. Encourage pt on IS and deep breathing. Discussed with nursing about using lowest flow possible to keep sats in low 90s. Prednisone 10md daily - Day #3. Recheck BMP in am secondary to medication and IV contrast.
[2017-03-20] MEDS: DIVALPROEX 250 MG TABLET PO SCH ×2 (19:09→21:02)
[2017-03-20] MEDS: GABAPENTIN 600 MG TABLET PO SCH (19:09)
[2017-03-20] MEDS: PredniSONE 10 MG TABLET PO SCH (19:09)
[2017-03-20] MEDS: SENNA + DOCUSATE TABLET PO SCH ×2 (19:10→21:03)
[2017-03-20] MEDS: SPIRONOLACTONE 25 MG TABLET PO SCH (19:10)
[2017-03-20] MEDS: FLUTICASONE NASAL SPRAY 50mcg EA NOSTRIL SCH (19:10)
[2017-03-20] MEDS: LIDOCAINE 5% PATCH TOP SCH (19:10)
[2017-03-20] MEDS: POLYETHYL GLYCOL 3350 17gm PACKET PO SCH (19:10)
[2017-03-20] MEDS: GABAPENTIN 300 MG CAPSULE PO SCH (21:01)
[2017-03-20] MEDS: LISINOPRIL 5 MG TABLET PO SCH (21:01)
[2017-03-20] MEDS: ATORVASTATIN 40 MG TABLET PO SCH (21:02)
[2017-03-20] MEDS: OLANZapine 10 MG TABLET PO SCH (21:02)
[2017-03-20] MEDS: LIDOCAINE PATCH REMOVAL TOP SCH (21:05)
[2017-03-21] MEDS: OMEPRAZOLE 20 MG CAPSULE PO SCH (07:25)
[2017-03-21] MEDS: TRAMADOL 50 MG TABLET PO PRN (07:27)
[2017-03-21] MEDS: ASPIRIN 81 MG CHEWABLE TABLET PO SCH (08:35)
[2017-03-21] MEDS: DIVALPROEX 250 MG TABLET PO SCH (08:35)
[2017-03-21] MEDS: POLYETHYL GLYCOL 3350 17gm PACKET PO SCH (08:36)
[2017-03-21] MEDS: GABAPENTIN 600 MG TABLET PO SCH (08:36)
[2017-03-21] MEDS: LIDOCAINE 5% PATCH TOP SCH (08:36)
[2017-03-21] MEDS: PredniSONE 10 MG TABLET PO SCH (08:36)
[2017-03-21] MEDS: SPIRONOLACTONE 25 MG TABLET PO SCH (08:36)
[2017-03-21] MEDS: SENNA + DOCUSATE TABLET PO SCH (08:36)
[2017-03-21] MEDS: FLUTICASONE NASAL SPRAY 50mcg EA NOSTRIL SCH (08:36)
[2017-03-21] MEDS ORDERED: CLOPIDOGREL 75 MG TABLET PO SCH (09:00)
--- NOTE | 2017-03-21 09:05 | Pulmonology Progress Note ---
Subjective Principal diagnosis: COPD exacerbation Interval history: Pt is currently sitting up in the chair. States no SOB, cough or sputum noted, wanting to go home. Exam Vital signs: Temperature 97.4 F 03/20/17 08:00 Pulse Rate 96 03/21/17 08:42 Respiratory Rate 22 03/21/17 07:00 Blood Pressure 110/57 03/21/17 07:00 Pulse Oximetry 93 03/21/17 07:00 - Constitutional no acute distress, morbidly obese - Routine HEENT Exam Head: Present: normocephalic, atraumatic Eye: Present: PERRL - Routine Neck Exam Present: supple, full ROM - Routine Respiratory Exam Present: decreased breath sounds, wheezes Comments: exp wheezes - Routine Cardiovascular Exam Present: RRR, no murmur - Routine Abdominal Exam Present: soft, normoactive bowel sounds - Routine Extremities Exam Present: no edema, full ROM - Routine Back/Spine/Pelvis Exam Back/Spine: Present: full ROM - Routine Skin Exam Present: intact, dry - Routine Neurological Exam Present: alert, oriented X3, CN II-XII intact - Routine Psychiatric Exam Present: normal affect Assessment and Plan - Assessment and Plan Acute on Chronic Hypercapnic Hypoxic Respiratory Failure - Uses 5L O2 at nsg home, ? if just at night HCAP - s/p tx COPD exacerbation - likely mod severe to sever COPD Systolic Heart Failure CAD s/p stent to RCA Tobaccoism Plan: Pt currently on O2 at 3.5L per NC and tolerating, sats 94%. Last ABG 03/16 7.4/ 71/60, likely cause of daytime sleepiness and fatigue. Patient is currently refusing to use the bipap any longer even with trying to make adjustments. She was instructed that without the bipap she has a high likelihood of respiratory failure and even without the use of the bipap and patient states she understood her risks. Since she is adamantly refusing the bipap I will not order it for home. Still on BT's with pulmicort BID and a/a QID with prednisone 10mg daily, still with faint exp wheezing noted. S/P cefepime and cipro for HCAP no CXR today, encourage IS and cough. Echo complete with systolic HF, HC + CAD s/p stent to RCA, will continue to follow. Pt refusing to stop smoking. OK per pulm to dismiss to [facility] [place] [facility] from a pulmonary standpoint. When dismissed will need to continue budesonide neb BID and a/a QID, wean prednisone. - Time Spent With Patient Total time spent is greater than 50% in coordination of care (as documented) at patient's floor/unit and/or counseling patient: less than 15 minutes
[2017-03-21] MEDS: ALBUTEROL/IPRATROPIUM 2.5mg-0.5mg/3ml NEB AEROSOL SCH ×2 (09:39→13:36)
[2017-03-21] MEDS: BUDESONIDE INH.SOLN 0.5mg/2ml NEB AEROSOL SCH (09:40)
[2017-03-21 10:46] VITALS: BP 108/73; PULSE 97
--- NOTE | 2017-03-21 12:15 | Extended Care Facility Orders ---
Admission Orders Admit to:: [facility] Allergies/Adverse Reactions: Allergies No Known Allergies Allergy (Verified 03/10/17 09:45) Admitting Diagnosis: copd/pneumonia Admitting Physician: Gia Mathis MD Attending Physician: Kina Sureo MD Code Status: Full Code Anticiapted Length of Stay: greater than 30 days Rehab Potential: fair Rehab Prognosis: fair Diet: Cardiac Diet - low-salt, low-fat Wound/Incision Care: Catheter site open to air/dry. Monitor catheter site for drainage. May use Facility Protocol or Standing Orders: Yes May have flu vaccine: Yes Detention Certification: I certify that SNF services are required to be given on an Inpatient basis because of the patients need for jail care on a continuing basis for the condition(s) for which he/she received inpatient hospital services prior to his/her transfer to the SNF. SNF inpatient care is necessary for the following reasons Indication for Detention: Not Applicable - Additional Information In Event of Arrest: Start CPR,call 911,send patient to the ER Resident is Aware of Diagnosis: Yes Referrals: Gay Medina MD [Family Provider] - 1 Week Dwayne Cooper MD [Physician] - (2-4 weeks) Additional Orders: BMP/magnesium in 1-diagnosis [id number], monitor medications- results to Dr. Cooper, office phone #[phone]; fax #[phone]. Patient to wear oxygen continually (unless smoking) at 3-5 L, titrate oxygen to saturation > 90%. Please schedule follow-up appointment with Dr. Cooper in 2-4 weeks. Follow-up with Dr. Medina in approximately one week. Titrate off prednisone as per instructed previously: 10 mg prednisone for next 3 days then 5 mg prednisone for 8 days. Multiple changes in medications due to CHF/cardiac stent. Please weigh patient daily and notify physician if her weight increases by 3 pounds in day or 5 pounds in 1 week.
--- NOTE | 2017-03-21 12:20 | Discharge Summary ---
Discharge Information Date of admission: 03/12/17 13:35 Anticipated date of discharge: 03/21/17 Attending Physician: Gia Mathis MD Primary care physician: Gay Medina MD Consults: Dwayne Cooper - systolic chf, EF 35%, anterior wall hypokinesis Cristhian White - Hypercarbic respiratory failure - Discharge Diagnosis (1) Acute exacerbation of chronic obstructive airways disease Status: Acute (2) Systolic congestive heart failure Status: Acute (3) Acute hypercapnic respiratory failure Status: Acute (4) CAD S/P percutaneous coronary angioplasty Status: Acute Acute on chronic hypoxic/hypercapnic respiratory failure. Baseline 5L O2. Healthcare associated pneumonia - improving Systolic heart failure - new diagnosis, likely ischemic cardiomyopathy CAD - critical stenosis to RCA Question HUBERT versus hypercapnic failure COPD exacerbation - moderately severe to severe COPD Hyperglycemia - A1c of 5.9% Hepatitis C GERD BAD with paranoia Tobaccoism Mild elevation of TSH - free T4 normal Morbid obesity with BMI 42.0 - Procedures Procedures: Echocardiogram on 03/12/17: 1. A technically fair study. 2. Borderline LV enlargement. 3. Moderate ischemic cardiomyopathy. Ejection fraction measured 35% and visually estimated at 35-40%. 4. Mild aortic stenosis cannot be excluded (see comment above under aortic valve study and Doppler). 5. Probably elevated central venous pressure. 6. Systolic PA pressure of 26 mmHg remains normal. Cardiac catheterization on 03/19/17: Formal report is pending however by preliminary report cath demonstrated a critical RCA lesion and patient was scheduled for stent to occur 03/20. PTCA with stent of subtotal lesion of the mid RCA on 03/20/17 with Medtronic drug-eluting stent. Right coronary artery is dominant. The mid segment has a 99% stenosis. There is CHERELLE-2 flow of the distal vessel. Post PCI/stenting, the RCA has 0% residual stenosis. There is no intimal disruption. The distal vessel is of much larger caliber and there is again normal flow of the distal vessel. - Laboratory Labs: On admission (03/10) white count 5.7 with unremarkable differential, hemoglobin 15.8, bicarbonate 37, creatinine 0.7, liver enzymes unremarkable, lactic acid 2.2, troponin <0.012 and BNP 415. Additional studies obtained during the hospital course include A1c 5.9 on 03/12; TSH 6.23 with free T4 of 1.52 on 03/14. Total cholesterol 153, LDL 87.8, HDL 49, triglycerides 81 on 03/12. ABG on 7 L supplemental oxygen on 03/12: 7.40/61/65/38 03/21/17 04:02 03/21/17 04:02 - Microbiology Respiratory viral panel negative, MRSA swab negative. - Radiology Radiology: Chest x-ray and admission demonstrate noted right middle lobe and possible bilateral lower lobe consolidation/pneumonia. Follow-up chest x-rays on 03/13 demonstrated increasing left lower lobe infiltrate and on 03/15 demonstrated improvement in the right lower lobe infiltrate with residual left lower lobe pneumonia. History of Present Illness HPI: Julia is a very pleasant 51yo female who resides in a nursing facility. She was found to have a fever of 101.5, was SOA, and was hypoxic in the 80's on her normal home O2. She continues to smoke at least 1ppd. Due to her increasing SOA and hypoxia, she was sent to the ER for further eval and treatment. She is seen following transfer from the emergency room. She is alert, reports breathing somewhat better. Continues to have some moderate SOA. Reports a productive cough. No chest pain. She is a very limited historian, and has known mental health disorder chronically. There were no [place] records available for me to review at the time of this H&P. Hospital Course This is a general summary of the patient's hospital course. For more details refer to the complete medical record. Hospital course: Hospital course 03/10/17 Admitted with pneumonia/hypoxia and generalized edema. Continuous O2 per NC, Titrate to effect. Scheduled DuoNeb, Pulmicort. Schedule Solu-Medrol. Add Ceftriaxone/Azithromycin to cover possible infiltrate. Respiratory viral panel negative. Patient was previously received flu shot. Will start IV diuresis, as she seems quite fluid overloaded which patient attributes to prior history of hepatitis C; denied history of coronary disease. Assess echo on Sunday. Resume home medications for Mood and Pain. Will add PRN NicoDerm patch and Ativan due to risk for anxiety given mental illness. 03/11/17 Persistent dyspnea with purulent sputum however a sputum sample cannot be obtained from the patient. Antibiotics modified for healthcare associated pathogens-cefepime, Cipro, vancomycin. -Continue respiratory therapy, steroids 03/12/17 Continue antibiotics, steroids and breathing treatments. Hypercarbia identified by ABG. Dr White insulted for pulmonary evaluation. Probable moderate severe to severe COPD per assessment. HUBERT versus hypercapnic respiratory failure. Consider GI consult re: Hep C on outpatient basis. TSH modestly elevated with normal free T4-reassess as outpatient. 03/13/17 Given her complaint of chronic fatigue and her pulmonary status, question if she would benefit from BiPAP. Will discuss further with pulmonology. She is not having any wheezing in her oxygen levels are back to her baseline, will decrease steroids to 20 mg daily and continue antibiotics. Suspicion she could have some CHF given her elevated BNP and her edema. She is still having some hyperglycemia, will change to carbohydrate controlled diet. Again encouraged tobacco cessation, but she is not willing at this time. 03/14/17 Dr. Cooper was consulted regarding the patient's newly diagnosed systolic heart failure. Echo with ejection fraction 35%. He will start her on lisinopril, spironolactone, and continue furosemide. Considering beta kat. Potassium is discontinued. He has recommended heart catheterization when respiratory status has improved. Continue steroids and breathing treatments for COPD exacerbation. She will be started on a trial of BiPAP tonight. We'll see if that will help with her fatigue. Start low-sodium diet. Continue to increase activity as tolerated. 03/15/17 Did not tolerate BiPAP overnight Continue lisinopril, spironolactone, and furosemide. Planning for cardiac cath in the near future as per Dr Cooper. Continue to work on COPD with Nebulizers. Continue Cefepime and Cipro for antimicrobial coverage of HCAP. Continue to increase activity as tolerated. 03/16/17 ABG assessed d/t somnolence - hypercarbia (CO2 of 71) with normal pH; hypoxemia (O2 60). Pt refusing BiPAP. D/W RN - will increase O2 to 4L. Encourage increased activity. Bicarb on BMP increased to 42. Weight is down about 6 kg; Lasix discontinued, may require additional diuretics. HCAP - improving; day #7 of Cipro + cefepime. 5-day vanco course completed. CXR shows improving RLL infiltrate with persistent LLL infiltrate. Dr. Cooper is planning on heart cath on 03/19. Cont JOSEPH-I, spironolactone, BB, and statin. Diamox initiated due to hypercarbia. D/W dietary - as they were discussing salt intake and the fact that smoking masks taste, pt reported that she's interested in quitting smoking. Tobacco cessation ordered. Cont nebs and prednisone for COPD. 03/17/17 Weight is down from yesterday (111.3 to 110.9 kg) despite holding Lasix. She has one more dose of Diamox to be given this afternoon. CO2 improved from 42 yesterday to 35 today. HCAP - clinically improving. Vanco dc'd after 5 day course; cefepime dc'd after 7 day course. Today is day #8 of cipro - likely can dc this soon. COPD - decrease prednisone to 10 mg daily Continue to encourage activity/ambulation though pt has been reluctant. 03/18/17 Patient describes progressive improvement in dyspnea. Urine output exceeding intake, weight trending downwards. CO2 decreased to 31. Lasix remains on hold. Continue with Cipro (Day #9) - possible stop after tomorrows last dose. Continue Neb treatments. Encourage use of IS to help gas exchange. Patient declines BiPAP. Encourage activities and movement-patient reluctant to be up and ambulatory. Blood sugars much improved with decreased dose of steroids. Blood pressure, HR, and electrolytes/creatinine stable for current CV medications. Anticipate cardiac cath tomorrow. 03/19/17 Cath Moved to CCU post cath for close cardiac monitoring. Cath showing critical stenosis to RCA - stent placement planned tomorrow. Will d/c ciprofloxacin after today's last dose - antibiotic course completed. Continue with Neb treatment and pulmonary toilet. Recheck BMP in am secondary to medication and IV contrast. 03/20/17 MAKENZIE Stent to RCA - Plavix initiated. Tolerated stent to RCA well. No chest pain. Creatinine stable this morning post cath yesterday. Breathing stable. White count stable off of antibiotics. Continue neb treatments. Encourage pt on IS and deep breathing. Discussed with nursing about using lowest flow possible to keep sats in low 90s. 03/21/17 Discharge Patient reports that she is doing well. She denies dyspnea or cough. She denies lightheadedness and reports her appetite is good. She denies chest pain or discomfort at catheter site. Respirations are nonlabored with good airflow, there is faint wheezing posteriorly. Cardiac rhythm is regular with sinus rhythm on the monitor. Trace edema at both ankles. Discharge weight is 107.8 kg. Patient is stable for discharge at this time. She is on multiple new cardiac medications as outlined in the medication list. Diuresis with Bumex 1 mg daily in conjunction with spironolactone was initiated at discharge. She'll complete prednisone in approximately 10 days and antibiotic course has been completed. She's to continue breathing treatments with albuterol/Atrovent 4 times daily and Pulmicort twice a day. CHF education was reviewed with the patient as were low-salt/fat guidelines prior to discharge. Patient is to follow-up with Dr. Gay Medina in approximately one week and Dr. Cooper in 2-4 weeks. BMP/Mg should be assessed in approximately 1 week to monitor electrolytes/renal function with diuresis. Results should be faxed to Dr. Cooper at number provided. Thyroid function should be reassessed in 6-8 weeks. Time spent with patient: greater than 35 minutes Discharge Plan - Med Rec/Dispo Referrals/Follow Up: Gay Medina MD [Family Provider] - 1 Week Dwayne Cooper MD [Physician] - 04/02/17 3:00 pm (2-4 weeks) Elmo Instructions: [facility] Congestive Heart Failure, Coronary Artery Disease (DC) , How to Stop Smoking (DC), COPD (Chronic Obstructive Pulmonary Disease) (GEN), Low Sodium Diet (DC), Pneumonia (GEN), Heart Catheterization (DC) Prescriptions: New Aspirin Chewable [ASA] 81 mg PO DAILY tab.chew Budesonide Inhalation [Pulmicort Inhalation] 0.5 mg AEROSOL RTBID vial Bumetanide Tab [Bumex Tab] 1 mg PO DAILY #30 tablet Clopidogrel [Plavix] 75 mg PO DAILY tablet Lisinopril [Prinivil] 5 mg PO HS tablet Metoprolol Succinate (XL) [Toprol Xl] 25 mg PO DAILY tablet Nitroglycerin [Nitrostat] 0.4 mg SL Q5M PRN tablet PRN Reason: Angina Spironolactone [Aldactone] 25 mg PO DAILY tablet Albuterol/Ipratropium [Duoneb] 3 ml AEROSOL RTQID neb Atorvastatin [Lipitor] 40 mg PO HS tablet Gabapentin [Neurontin] 600 mg PO HS capsule LORazepam [Ativan] 0.5 mg PO BID PRN #10 tab PRN Reason: Anxiety PredniSONE [Deltasone] 10 mg PO WB #7 tablet Continue Acetaminophen 650 mg PO Q6HR PRN PRN Reason: Pain Mag Hydrox/Aluminum Hyd/Simeth [Maalox Advanced Suspension] 15 ml PO Q6HR PRN PRN Reason: Indigestion Guaifenesin/Dextromethorphan [Robafen Dm Cgh-Chest Eric Syrp] 10 ml PO Q4HR PRN PRN Reason: Cough Divalproex [Depakote] 3 tab PO HS OLANZapine [Olanzapine] 10 mg PO HS Albuterol Sulfate [Proair Hfa] 2 puff INH TID PRN PRN Reason: Shortness Of Air/Wheezing Meloxicam 15 mg PO DAILY Omeprazole 20 mg PO ACB Multivitamin [One Daily Multivitamin] 1 each PO DAILY Divalproex [Depakote] 2 tab PO AM Tramadol [Ultram] 50 mg PO TID PRN #20 tab PRN Reason: Pain Milk of Magnesia [Mom] 30 ml PO DAILY PRN PRN Reason: Constipation Fluticasone Nasal Nunda [Flonase] 2 spray JHON DAILY Gabapentin [Neurontin] 600 mg PO BID #0 Changed Albuterol Neb (0.083%) [Proventil Neb (0.083%)] 1 vial INH Q2H PRN #0 PRN Reason: Prn Orders Discontinued Simvastatin 20 mg PO HS Gabapentin 900 mg PO HS Furosemide [Lasix] 40 mg PO DAILY Discharge Instructions/Outpatient Orders: BMP - Basic Metabolic - AMS Location: Determined By Patient - Disposition 04 To [facility] Home/Facility - Dismissal Complete Discharge Instructions are:: Complete
--- NOTE | 2017-03-21 12:22 | Cardiac Catheterization Report ---
DATE: 03/19/2017 PROCEDURE PERFORMED 1. Transradial left heart catheterization. 2. LV gram. 3. Coronary angiogram. 4. Moderate conscious sedation. Estimated time including recovery was 30 minutes. INDICATIONS Acute congestive heart failure with wall motion abnormality and coronary artery disease. METHODOLOGY After indications, alternatives, risks and benefits of the procedure were fully discussed with the patient in detail, she agreed to proceed. The patient was brought to the cardiac cath laboratory. She received IV sedation using Versed and Fentanyl. Please refer to printout sheet for exact amount given. Under sterile technique I injected 1% lidocaine, about 1.5 cc, in the right wrist and accessed the right radial artery without difficulty using modified Seldinger percutaneous technique. I inserted a 6-Chinese Slender sheath and used a Greenbrae catheter to perform the above-mentioned procedures. The procedure was well tolerated with no immediate complications. At the conclusion of the study we gave additional Fentanyl 50 mcg for patient's back pain which extended the monitoring time. The patient was free from angina or evidence of ongoing ischemia. Consultation with interventional colleague, Dr. Savage, led to scheduling the transfemoral PCI for the following morning. FINDINGS 1. HEMODYNAMICS: LVEDP was 15 mmHg. There was no transvalvular or subvalvular pressure gradient present. 2. CORONARY ANGIOGRAM: Left main coronary artery is large and exhibits minimal luminal irregularities - nothing occlusive. LAD is a large vessel and gives origin to small diagonal branches. Very mild plaquing is present in the mid LAD - nothing occlusive. There is mild LAD mild stenosis of about 30%. Left circumflex artery gives origin to an obtuse marginal branch. The PLB branch is a nondominant vessel. There are two areas of mild narrowing of about 20%-30% in the proximal left circumflex artery and minor plaque in the origin of the obtuse marginal branch. RCA is a large dominant vessel and exhibits a severe long stenosis in the mid segment of about 90%. Distally, RPLB branch measured about 2 mm in caliber and exhibits a moderate proximal stenosis in the range of 50%-60%. RPDA is free from occlusive disease. The lesion in the RCA appears irregular and a little hazy. 3. LV gram shows anterior lateral wall hypokinesis, [id number] LV systolic dysfunction. IMPRESSION 1. Single-vessel coronary artery disease as manifested by mid RCA 90% occlusion long lesion. LAD and left circumflex artery both have nonocclusive disease of about 30%. 2. [id number] LV systolic dysfunction. 3. High-normal filling pressure LVEDP of 15 mmHg consistent with treated heart failure. DISCUSSION/PLAN 1. PCI is scheduled in the morning. 2. Will place the patient in CCU and start IV heparin drip and low with Plavix in anticipation of intervention. 3. For intraarterial drug combo verapamil, nitroglycerin and heparin bolus 3000 given in the dairy lab technician. Please refer to nursing notes. COMPLICATIONS None. MTDD
[2017-03-21 13:42] VITALS: RESP 24; O2SAT 95
== END 2017-03-21 14:19 | DRG 981 ==
LOC: MED 09:27 → ED 09:27 → SUATTDRO 12:02 → MED 12:20 → SUATTDRO 03-12 13:35 → CCU 03-19 13:26
PROVIDERS: ADMIT Internal Medicine Cardiovascular Disease; ATTEND Internal Medicine